=== PATIENT | female | born 1965 | race Caucasian/White ===

== ENCOUNTER → 2016-07-21 23:40 | Emergency (ER) | payer MEDICARE | END | disposition left against medical advice (07) | LOC: C.ER 23:40 | DX: F19.10 Other psychoactive substance abuse, uncomplicated (principal); Z02.9 Encounter for administrative examinations, unspecified ==

== ENCOUNTER 2016-08-20 16:43 | Inpatient (IN) | payer MEDICARE ==
[2016-08-20] MEDS ORDERED: Sodium Chloride 0.9% 1,000 ML IV ONE (17:04)
[2016-08-20 17:23] LABS: BASO # 0.1 K/uL (0.0-0.2); EOS % 0.2 % (0.0-4.0); HEMATOCRIT 37.4 % (34.0-47.0); LYMPH # 1.2 K/uL (1.0-4.3); LYMPH % 21.1 % (20.0-40.0); MEAN CELL VOLUME 95.5 fL (81.0-99.0); MEAN CORPUSCULAR HEMOGLOBIN 31.9 pg (27.0-31.0); MEAN CORPUSCULAR HGB CONC 33.4 g/dL (33.0-37.0); MEAN PLATELET VOLUME 8.1 fL (7.2-11.7); MONO # 0.5 K/uL (0.0-0.8); MONO % 8.7 % (0.0-10.0); NRBC % 0.1 % (0.0-2.0); RED CELL DISTRIBUTION WIDTH 14.7 % (11.5-14.5); WHITE BLOOD COUNT 5.7 K/uL (4.8-10.8)
[2016-08-20 17:29] LABS: CHLORIDE 91 mmol/L (98-107); POTASSIUM 2.6 mmol/L (3.6-5.2); SODIUM 134 mmol/L (132-148)
[2016-08-20 17:31] LABS: BILIRUBIN,TOTAL 1.3 mg/dL (0.2-1.3); GFR AFRICAN-AMERICAN > 60
[2016-08-20] MEDS ORDERED: Sodium Chloride 0.9% 1,000 ML ONE (17:31)
[2016-08-20 17:32] LABS: ALB/GLOB RATIO 1.3 (1.0-2.1); ALKALINE PHOSPHATASE 76 U/L (38-126); ALT/SGPT 91 U/L (9-52); AST/SGOT 204 U/L (14-36); BLOOD UREA NITROGEN 7 mg/dL (7-17); CALCIUM 8.8 mg/dl (8.6-10.4); CARBON DIOXIDE 24 mmol/L (22-30); GLUCOSE,RANDOM 112 mg/dL (65-105); TOTAL PROTEIN 7.5 g/dL (6.3-8.3)
--- NOTE | 2016-08-20 18:20 | C.PDOC ---
History Of Present Illness 50-year-old female, PMHx includes EtOH Abuse, presents to the emergency department with complaints of seizure. Patient states she tried to quit drinking , and has not had a drink in 1.5 days. Today, patient was having increased tremors, and had a witnessed seizure by bystander. 911 called and patient was found to be mildly lethargic upon arrival of EMS, questionable post-ictal? Currently patient is awake and alert and has no complaints at this time. Time Seen by Provider: 08/20/16 16:53 Chief Complaint (Nursing): Seizure History Per: Patient, EMS History/Exam Limitations: no limitations Associated Symptoms: Bit Tongue Past Medical History Reviewed: Historical Data, Nursing Documentation, Vital Signs Vital Signs: Last Vital Signs Temp 98.8 F 08/20/16 16:52 Pulse 120 H 08/20/16 16:52 Resp 14 08/20/16 16:52 BP 119/62 08/20/16 16:52 Pulse Ox 96 08/20/16 18:32 - Medical History PMH: Fibromyalgia Family History: States: Unknown Family Hx - Social History Hx Tobacco Use: No Hx Alcohol Use: Yes Hx Substance Use: No - Immunization History Hx Tetanus Toxoid Vaccination: No Hx Influenza Vaccination: No Hx Pneumococcal Vaccination: Yes Review Of Systems Except As Marked, All Systems Reviewed And Found Negative. Constitutional: Negative for: Fever, Chills Cardiovascular: Negative for: Chest Pain Respiratory: Negative for: Shortness of Breath Gastrointestinal: Negative for: Vomiting Genitourinary: Positive for: Incontinence. Negative for: Vaginal Discharge, Vaginal Bleeding Musculoskeletal: Negative for: Back Pain Skin: Negative for: Rash Neurological: Positive for: Seizures. Negative for: Weakness, Numbness, Headache, Dizziness Physical Exam - Physical Exam Appears: Non-toxic, No Acute Distress Skin: Warm, Dry, No Rash Head: Atraumatic, Normacephalic, No Swelling, No Abrasion, No Laceration Eye(s): bilateral: Normal Inspection, PERRL, EOMI Nose: Normal Oral Mucosa: Moist Tongue: Other (0.5cm left-sided superficial laceration with no active bleed) Lips: Normal Appearing Neck: Normal ROM, No Midline Cervical Tenderness, No Paracervical Tenderness Cardiovascular: Rhythm Regular, No Friction Rub, No Murmur Respiratory: Normal Breath Sounds, No Accessory Muscle Use, No Rales, No Rhonchi , No Wheezing Gastrointestinal/Abdominal: Soft, No Tenderness Back: Normal Inspection, No CVA Tenderness, No Vertebral Tenderness, No Paraspinal Tenderness Extremity: Normal ROM, No Calf Tenderness, No Swelling Neurological/Psych: Oriented x3, Normal Speech, Normal Cognition, Normal Motor, Normal Sensation Gait: Steady ED Course And Treatment - Laboratory Results Result Diagrams: 08/20/16 17:15 08/20/16 17:15 O2 Sat by Pulse Oximetry: 96 (on RA) Pulse Ox Interpretation: Normal Medical Decision Making Medical Decision Making: Plan: * CMP, UDS * CBC * Ativan, K-Chloride, IVF * Urinalysis/HCG * Reassess and Disposition Ativan IV ordered. The patient reports mild improvement of tremors and heart has decreased to 90's. Potassium was found to be low. IV potassium ordered. The case was discussed with Dr. Lemus who agrees to admit the patient to telemetry. Psych consult for alcohol dependence was ordered. Disposition - Disposition Disposition: HOSPITALIZED Disposition Time: 18:00 Condition: FAIR - POA Present On Arrival: None - Clinical Impression Clinical Impression: Hypokalemia, Alcohol withdrawal - Scribe Statement The provider has reviewed the documentation as recorded by the Sherry Shell
--- NOTE | 2016-08-20 18:21 | C.PDOC ---
Time Seen by Provider: 08/20/16 16:53 Chief Complaint (Nursing): Seizure Past Medical History Vital Signs: Last Vital Signs Temp 98.8 F 08/20/16 16:52 Pulse 120 H 08/20/16 16:52 Resp 14 08/20/16 16:52 BP 119/62 08/20/16 16:52 Pulse Ox 96 08/20/16 16:52 - Medical History PMH: Fibromyalgia Family History: States: Unknown Family Hx - Social History Hx Tobacco Use: No Hx Alcohol Use: Yes Hx Substance Use: No - Immunization History Hx Tetanus Toxoid Vaccination: No Hx Influenza Vaccination: No Hx Pneumococcal Vaccination: Yes ED Course And Treatment - Laboratory Results Result Diagrams: 08/20/16 17:15 08/20/16 17:15 O2 Sat by Pulse Oximetry: 96
[2016-08-20 19:14] LABS: RBC URINE 1 /hpf (0-3); URINE BACTERIA RARE (<OCC); URINE BILIRUBIN NEGATIVE (NEGATIVE); URINE BLOOD NEGATIVE (NEGATIVE); URINE COLOR Yellow (YELLOW); URINE GLUCOSE (UA) NORMAL (Normal); URINE KETONE NEGATIVE (NEGATIVE); URINE LEUKOCYTE ESTERASE NEG Leu/uL (Negative); URINE PROTEIN NEGATIVE (NEGATIVE); URINE UROBILINOGEN NORMAL mg/dL (0.2-1.0); WBC URINE 1 /hpf (0-5)
[2016-08-20] MEDS ORDERED: Magnesium Sulfate 1 gm in D5W 1 GM/100 ML BAG IVPB ONE ×2 (19:59→20:24)
[2016-08-21] MEDS: Potassium Ch 20mEq in D5-1/2NS 1,000 ML IV SCH ×2 (06:14→21:55)
[2016-08-21 06:17] LABS: BASO # 0.1 K/uL (0.0-0.2); BASO % 1.4 % (0.0-2.0); EOS % 1.1 % (0.0-4.0); HEMATOCRIT 33.4 % (34.0-47.0); LYMPH # 1.6 K/uL (1.0-4.3); LYMPH % 36.6 % (20.0-40.0); MEAN CELL VOLUME 96.6 fL (81.0-99.0); MEAN CORPUSCULAR HEMOGLOBIN 32.5 pg (27.0-31.0); MEAN CORPUSCULAR HGB CONC 33.7 g/dL (33.0-37.0); MEAN PLATELET VOLUME 8.4 fL (7.2-11.7); MONO # 0.4 K/uL (0.0-0.8); MONO % 10.4 % (0.0-10.0); RED CELL DISTRIBUTION WIDTH 14.2 % (11.5-14.5); WHITE BLOOD COUNT 4.3 K/uL (4.8-10.8)
[2016-08-21 07:55] LABS: CHLORIDE 97 mmol/L (98-107); SODIUM 136 mmol/L (132-148)
[2016-08-21 07:57] LABS: AST/SGOT 116 U/L (14-36); BILIRUBIN,TOTAL 1.2 mg/dL (0.2-1.3); CARBON DIOXIDE 30 mmol/L (22-30); GFR AFRICAN-AMERICAN > 60
[2016-08-21 07:58] LABS: ALB/GLOB RATIO 1.1 (1.0-2.1); ALKALINE PHOSPHATASE 56 U/L (38-126); ALT/SGPT 73 U/L (9-52); BLOOD UREA NITROGEN 5 mg/dL (7-17); CALCIUM 8.4 mg/dl (8.6-10.4); GLUCOSE,RANDOM 98 mg/dL (65-105); TOTAL PROTEIN 6.4 g/dL (6.3-8.3)
[2016-08-21] MEDS ORDERED: Potassium Chloride 20 mEq ER Tab PO ONE (09:05)
--- NOTE | 2016-08-21 10:47 | PCM.PSYCH ---
Initial Psychiatric Evaluation - Initial Psychiatric Evaluation Type of Admission: Voluntary Legal Status: Capacity Chief Complaint (in patient's own words): I came in to get help History of Present Illness and Precipitating Events: 50 y/o female who is currently unemployed, on disability, with a psychiatric history of anxiety, panic disorder and insomnia and a history of alcohol abuse was admitted to the ED for a seizure episode. The patient was consulted because of history of anxiety disorder. Pt says that she was walking to her friend's house on an overpass and developed a panic attack. She then decided to walk to her sisters house who lived near by. As the patient was walking she felt dizzy and suddenly lost consciousness. Patient reports of extra auditory high energy. She also says that she has been walking roughly 100 blocks daily for the past 3 years. Pt states that she either walks to [place] or to her friends house. Pt says that she did not eat for 2 days prior to the episode. She states that overall she has a poor appetite due to an esophageal hernia and that she recently lost 70 lbs in 3 months. Pt also states that she has been experiencing panic attacks for roughly 1 year and that tunnels or overpass trigger them. She denies drug or tobacco use and stated that she only consumes 1 glass of wine per week. She also reports poor sleep and poor appetite. She says that she saw her psychiatrist 2 months ago but is planning on seeing someone else since she does not feel like she is being helped. Pt denies visual or auditory hallucinations and homicidal or suicidal ideation. Pt denies persecutory delusions Pt denies any legal issues. Today the patient had 5 episodes of nonbloody diarrhea. She also feels dizzy after getting up from her bed. Pt also complains if night sweats and trouble falling asleep due to excessive worrying about her current condition and wanting to see her daughter. Current Medications: Active Medications Generic Name Dose Route Start Last Admin Trade Name Genevieve PRN Reason Stop Dose Admin Folic Acid 1 mg 08/21/16 10:00 08/21/16 09:06 Folic Acid PO 1 mg DAILY ERICA Administration Potassium Chloride/Dextrose/Sod Cl 1,000 mls @ 100 mls/hr 08/20/16 20:00 06:14 Potassium Chl 20 Meq In D5-1/2ns IV 100 mls/hr .Q10H ERICA Administration Potassium Chloride 20 meq in 100 mls @ 50 mls/hr 08/21/16 10:00 08/21/16 09: 00 Potassium Chloride 20 Meq/100 Ml IVPB 08/21/16 13:59 50 mls/hr Q2 ERICA Administration Lorazepam 2 mg 08/20/16 19:59 08/21/16 09:45 Ativan IVP 2 mg Q6H PRN Administration Anxiety Lorazepam 2 mg 08/21/16 10:00 Ativan IVP 08/26/16 09:59 Q4 ERICA Taper Thiamine HCl 100 mg 08/21/16 10:00 08/21/16 09:06 Vitamin B1 Tab PO 100 mg DAILY ERICA Administration Past Psychiatric History - Past Psychiatric History Previous Treatment History: None History of Family Illness: Father wad depression Pertinent Medical Hx (Current Medical&Sleep Prob, Allergies): Allergies Allergy/AdvReac Type Severity Reaction Status Date / Time No Known Allergies Allergy Verified 08/20/16 16:51 No Known Home Med 02/14/16 Review of Systems - Review of Systems All systems: reviewed and no additional remarkable complaints except - Psychiatric Psychiatric: Anxiety, Behavioral Changes, Irritability, Mood Swings, Panic Attacks Mental Status Examination - Personal Presentation Personal Presentation: Looks stated age - Affect Affect: Constricted - Motor Activity Motor Activity: Psychomotor Agitation - Reliability in Providing Information Reliability in Providing Information: Good - Speech Speech: Organized - Mood Mood: Anxious - Formal Thought Process Formal Thought Process: Flight of ideas - Obsessions/Compulsions Obsessions: No Compulsions: No - Cognitive Functions Orientation: Person, Place, Situation, Time Sensorium: Alert Attention/Concentration: Attentive Abstract Thinking: [place] Estimate of Intelligence: Below average Judgement: Imparied, as evidence by: Poor judgement, Intact, as evidence by: Insight regarding need for hospitalization - Risk Risk: Diminished functioning - Strength & Assets Inventory Strength & Assets Inventory: Cooperative DSM 5 DX - DSM 5 DSM 5 Diagnosis: Bipolar 1 disorder most recent episode manic moderate - Recommended/Plan of Treatment Treatment Recommendations and Plan of Treatment: Bipolar 1 disorder most recent episode manic moderate CBT Psychoeducation Supportive therapy, group therapy, individual therapy Depakote 250 mg by mouth twice a day Neurontin 100 mg by mouth 3 times a day Trazodone 50 mg by mouth daily at bedtime - Smoking Cessation Smoking Cessation Initiated: No
--- NOTE | 2016-08-21 11:44 | CT ---
PROCEDURE: CT HEAD WITHOUT CONTRAST. HISTORY: s/p fall hit to left head with dizziness COMPARISON: None available. TECHNIQUE: Axial computed tomography images were obtained through the head/brain without intravenous contrast. Radiation dose: Total exam DLP = 1031.53 mGy-cm. This CT exam was performed using one or more of the following dose reduction techniques: Automated exposure control, adjustment of the mA and/or kV according to patient size, and/or use of iterative reconstruction technique. FINDINGS: HEMORRHAGE: No intracranial hemorrhage. BRAIN: No mass effect or edema. No atrophy or chronic microvascular ischemic changes. VENTRICLES: Unremarkable. No hydrocephalus. CALVARIUM: Unremarkable. PARANASAL SINUSES: Unremarkable as visualized. No significant inflammatory changes. MASTOID AIR CELLS: Unremarkable as visualized. No inflammatory changes. OTHER FINDINGS: Mild left frontal scalp soft tissue swelling seen. IMPRESSION: No evidence of acute intracranial hemorrhage or acute pathology in the brain.
--- NOTE | 2016-08-21 12:55 | CP.PCM.PN ---
Subjective - Date & Time of Evaluation Date of Evaluation: 08/21/16 Time of Evaluation: 09:31 - Subjective Subjective: Medicine Progress Note- Dr. Lemus's Service: 50 year old female with PMHx of alcohol abuse admitted overnight after witnessed seizure yesterday. She states she was walking on the street when she "went down". Patient does not remember episode. She remembers when the firemen where helping her. She admits to drinking last 3 days ago. She denies prior seizures. Patient seen and examined at bedside this AM. Patient reports feeling a little dizzy this morning when she got up to bathroom. She is complaining of bruising and pain over her left forehead where she hit herself during fall. Tremors have improved. She is alert and oriented. Admits to diarrhea and nausea, but no vomiting. No chest pain, SOB, abdominal pain. Objective - Vital Signs/Intake and Output Vital Signs (last 24 hours): Temp Pulse Resp BP Pulse Ox 98.8 F 73 18 122/78 96 08/21/16 07:45 08/21/16 07:45 08/21/16 07:45 08/21/16 07:45 08/21/16 07:45 - Medications Medications: Current Medications Folic Acid (Folic Acid) 1 mg PO DAILY [facility] Last Admin: 08/21/16 09:06 Dose: 1 mg Potassium Chloride/Dextrose/Sod Cl (Potassium Chl 20 Meq In D5-1/2ns) 1,000 mls @ 100 mls/hr IV .Q10H ERICA Last Admin: 08/21/16 06:14 Dose: 100 mls/hr Potassium Chloride (Potassium Chloride 20 Meq/100 Ml) 20 meq in 100 mls @ 50 mls/hr IVPB Q2 ERICA Stop: 08/21/16 13:59 Last Admin: 08/21/16 09:00 Dose: 50 mls/hr Lorazepam (Ativan) 2 mg IVP Q6H PRN PRN Reason: Anxiety Last Admin: 08/21/16 09:45 Dose: 2 mg Lorazepam (Ativan) 2 mg IVP Q4 ERICA PRN Reason: Taper Stop: 08/26/16 09:59 Thiamine HCl (Vitamin B1 Tab) 100 mg PO DAILY ERICA Last Admin: 08/21/16 09:06 Dose: 100 mg - Labs Labs: 08/21/16 06:09 08/21/16 06:09 - Constitutional Appears: No Acute Distress - Head Exam Head Exam: absent: ATRAUMATIC (bruises over left and middle forehead. ), NORMAL INSPECTION - Eye Exam Eye Exam: EOMI, Normal appearance - ENT Exam ENT Exam: Mucous Membranes Moist - Neck Exam Neck Exam: Full ROM, Normal Inspection - Respiratory Exam Respiratory Exam: Clear to Ausculation Bilateral, NORMAL BREATHING PATTERN - Cardiovascular Exam Cardiovascular Exam: REGULAR RHYTHM, +S1, +S2 - GI/Abdominal Exam GI & Abdominal Exam: Soft. absent: Distended, Tenderness - Extremities Exam Extremities Exam: Full ROM, Normal Inspection - Back Exam Back Exam: NORMAL INSPECTION - Neurological Exam Neurological Exam: Alert, Awake, Oriented x3 - Psychiatric Exam Psychiatric exam: Normal Affect, Normal Mood - Skin Skin Exam: Dry, Normal Color, Warm Assessment and Plan (1) Seizure disorder Assessment & Plan: First time seizure. Head CT this AM negative for IC bleed. Neuro consult placed- Dr. Skinner f/u EEG UDS negative Physical therapy Status: Acute (2) Fall Assessment & Plan: Head CT this AM negative for IC bleed. UDS negative Physical therapy Status: Acute (3) Alcohol withdrawal Assessment & Plan: LFTs elevated. Likely secondary to alcohol abuse. Psych consult placed- Dr. Sweeney- help appreciated. Ativan Taper Ativan PRN Banana bag X1 Thiamine 100 mg PO daily MV PO daily Folic Acid 1 mg PO daily Seizure, fall and aspiration precautions. Status: Acute (4) Hypokalemia Assessment & Plan: K+ 3.0 today. IVPB 20 mEQ X2 bags ordered for today. f/u CMP in the AM Status: Acute (5) Prophylactic measure Assessment & Plan: Pepcid 2mg PO BID SCDs Status: Acute
--- NOTE | 2016-08-21 16:49 | CP.PCM.CON ---
History of Present Illness - History of Present Illness History of Present Illness: Mrs. Ellison is a 50-year-old woman with a past medical history of depression, abdominal hernia, a 70 lb weight loss over the last several months, nausea, vomiting who states that she sometimes drinks heavily but her last drink was 2- 3 days ago. She was walking to her sisters house when she lost consciousness and was witnessed having seizure-like movements. The patient states that she takes Xanax regularly, and does not know what other medications she is on. She admits to having headache where she hit her head on the left latter-day region when she fell. She does not currently have nausea/vomiting, photophobia, blurry vision, or visual changes, weakness, sensory changes, shortness of breath, chest pain or other associated symptoms. Review of Systems - Review of Systems All systems: reviewed and no additional remarkable complaints except Past Patient History - Infectious Disease Hx of Infectious Diseases: None - Past Medical History & Family History Past Medical History?: Yes - Past Social History Smoking Status: Never Smoked - CARDIAC Hx Cardiac Disorders: No - PULMONARY Hx Respiratory Disorders: No - NEUROLOGICAL Hx Neurological Disorder: No - HEENT Hx HEENT Problems: No - RENAL Hx Chronic Kidney Disease: No - ENDOCRINE/METABOLIC Hx Endocrine Disorders: No - HEMATOLOGICAL/ONCOLOGICAL Hx Blood Disorders: No - INTEGUMENTARY Hx Dermatological Problems: No - MUSCULOSKELETAL/RHEUMATOLOGICAL Hx Musculoskeletal Disorders: No Hx Falls: No - GASTROINTESTINAL Hx Gastrointestinal Disorders: No - GENITOURINARY/GYNECOLOGICAL Hx Genitourinary Disorders: No - PSYCHIATRIC Hx Psychophysiologic Disorder: Yes Hx Anxiety: Yes Hx Depression: Yes Hx Substance Use: No - SURGICAL HISTORY Hx Surgeries: Yes Hx Section: Yes Hx Orthopedic Surgery: Yes (Right Knee) Other/Comment: Rt knee surgery 2 yrs. ago - ANESTHESIA Hx Anesthesia: Yes Hx Anesthesia Reactions: No Has any member of the family had a problem w/ anesthesia?: No Meds Allergies/Adverse Reactions: Allergies Allergy/AdvReac Type Severity Reaction Status Date / Time No Known Allergies Allergy Verified 08/20/16 16:51 - Medications Medications: Current Medications Divalproex Sodium (Depakote Dr) 250 mg PO BID [facility] Famotidine (Pepcid) 20 mg PO BID [facility] Folic Acid (Folic Acid) 1 mg PO DAILY [facility] Last Admin: 08/21/16 09:06 Dose: 1 mg Gabapentin (Neurontin) 100 mg PO TID [facility] Hydroxyzine HCl (Atarax) 25 mg PO Q6 PRN PRN Reason: Anxiety Potassium Chloride/Dextrose/Sod Cl (Potassium Chl 20 Meq In D5-1/2ns) 1,000 mls @ 100 mls/hr IV .Q10H [facility] Last Admin: 08/21/16 06:14 Dose: 100 mls/hr Lorazepam (Ativan) 1 mg IVP Q6H PRN PRN Reason: Anxiety Multivitamins (Hexavitamin) 1 tab PO DAILY [facility] Thiamine HCl (Vitamin B1 Tab) 100 mg PO DAILY [facility] Last Admin: 08/21/16 09:06 Dose: 100 mg Trazodone HCl (Desyrel) 50 mg PO HS [facility] Physical Exam - Constitutional Appears: Well - Head Exam Head Exam: NORMAL INSPECTION, NORMOCEPHALIC Additional comments: soft tissue swelling and hematoma over the left lateral and latter-day region of the head. - Eye Exam Eye Exam: Conjunctival injection - ENT Exam ENT Exam: Mucous Membranes Moist, Normal Exam - Neck Exam Neck exam: Positive for: Normal Inspection - Respiratory Exam Respiratory Exam: Clear to Auscultation Bilateral, NORMAL BREATHING PATTERN - Cardiovascular Exam Cardiovascular Exam: REGULAR RHYTHM, +S1, +S2 - GI/Abdominal Exam GI & Abdominal Exam: Normal Bowel Sounds, Soft. absent: Tenderness - Back Exam Back exam: NORMAL INSPECTION - Neurological Exam Neurological exam: Alert, CN II-XII Intact, Normal Gait, Oriented x3, Reflexes Normal - Expanded Neurological Exam Expanded Patient oriented to: person, place, time Ataxia: No Upper motor neuron: Babinski Sign: Normal, Holden Neglect: Normal Sensory exam: Lower Extremity 2 Point Discrimination: Normal, Lower Extremity Light Touch: Normal, Lower Extremity Pin Prick: Normal, Lower Extremity Temperature: Normal, Upper Extremity 2 Point Discrimination: Normal, Upper Extremity Light Touch: Normal, Upper Extremity Pin Prick: Normal, Upper Extremity Temperature: Normal Neuro motor strength exam: Left Upper Extremity: 5, Right Upper Extremity: 5, Left Lower Extremity: 5, Right Lower Extremity: 5 DTR: Achilles Tendon Left: 2+, Achilles Tendon Right: 2+, Bicep Left: 2+, Bicep Right: 2+, Brachioradialis Left: 2+, Brachioradialis Right: 2+, Patellar Left: 2 +, Patellar Right: 2+, Tricep Left: 2+, Tricep Right: 2+ - Psychiatric Exam Psychiatric exam: Depressed Results - Vital Signs Recent Vital Signs: Last Vital Signs Temp 99.5 F 08/21/16 15:54 Pulse 81 08/21/16 15:54 Resp 20 08/21/16 15:54 BP 126/82 08/21/16 15:54 Pulse Ox 99 08/21/16 15:54 - Labs Result Diagrams: 08/21/16 06:09 08/21/16 06:09 Labs: Laboratory Results - last 24 hr 08/20/16 08/20/16 08/21/16 18:58 18:58 06:09 WBC 4.3 L RBC 3.46 L Hgb 11.3 Hct 33.4 L MCV 96.6 MCH 32.5 H MCHC 33.7 RDW 14.2 Plt Count 149 MPV 8.4 Neut % (Auto) 50.5 Lymph % (Auto) 36.6 Humphreys % (Auto) 10.4 H Eos % (Auto) 1.1 Baso % (Auto) 1.4 Neut # 2.2 Lymph # 1.6 Humphreys # 0.4 Eos # 0.0 Baso # 0.1 Sodium Potassium Chloride Carbon Dioxide Anion Gap BUN Creatinine Est GFR ( Amer) Est GFR (Non-Af Amer) Random Glucose Calcium Total Bilirubin AST ALT Alkaline Phosphatase Total Protein Albumin Globulin Albumin/Globulin Ratio Urine Color Yellow Urine Clarity Clear Urine pH 8.0 Ur Specific Cecil 1.005 Urine Protein Negative Urine Glucose (UA) Normal Urine Ketones Negative Urine Blood Negative Urine Nitrate Negative Urine Bilirubin Negative Urine Urobilinogen Normal Ur Leukocyte Esterase Neg Urine WBC (Auto) 1 Urine RBC (Auto) 1 Ur Squamous Epith Cells 6 H Urine Bacteria Rare Urine HCG, Qual Negative Urine Opiates Screen Negative Urine Methadone Screen Negative Ur Barbiturates Screen Negative Ur Phencyclidine Scrn Negative Ur Amphetamines Screen Negative U Benzodiazepines Scrn Negative U Oth Cocaine Metabols Negative U Cannabinoids Screen Negative 08/21/16 06:09 WBC RBC Hgb Hct MCV MCH MCHC RDW Plt Count MPV Neut % (Auto) Lymph % (Auto) Humphreys % (Auto) Eos % (Auto) Baso % (Auto) Neut # Lymph # Humphreys # Eos # Baso # Sodium 136 Potassium 3.0 L Chloride 97 L Carbon Dioxide 30 Anion Gap 13 BUN 5 L Creatinine 0.4 L Est GFR ( Amer) > 60 Est GFR (Non-Af Amer) > 60 Random Glucose 98 Calcium 8.4 L Total Bilirubin 1.2 AST 116 H D ALT 73 H Alkaline Phosphatase 56 Total Protein 6.4 Albumin 3.4 L Globulin 3.0 Albumin/Globulin Ratio 1.1 Urine Color Urine Clarity Urine pH Ur Specific Cecil Urine Protein Urine Glucose (UA) Urine Ketones Urine Blood Urine Nitrate Urine Bilirubin Urine Urobilinogen Ur Leukocyte Esterase Urine WBC (Auto) Urine RBC (Auto) Ur Squamous Epith Cells Urine Bacteria Urine HCG, Qual Urine Opiates Screen Urine Methadone Screen Ur Barbiturates Screen Ur Phencyclidine Scrn Ur Amphetamines Screen U Benzodiazepines Scrn U Oth Cocaine Metabols U Cannabinoids Screen - Imaging and Cardiology CT scan - head Status: Image reviewed by me, Report reviewed by me (No acute findings on CT head.) Assessment & Plan (1) Seizure disorder Assessment and Plan: Likely secondary to dehydration, hypokalemia, alcohol or benzodiazepine withdrawal. EEG results are pending. MRI of the brain with and without contrast is recommended. Continue Depakote at current dose, may increase gabapentin to 300 mg TID. PT/OT, DVT Px. Thank you very much for this consultation. Status: Acute
[2016-08-21] MEDS: Divalproex 250 mg DR Tab PO SCH (18:16)
[2016-08-21] MEDS: Multiple Vitamins Tab PO SCH (18:17)
[2016-08-22 07:23] LABS: BASO # 0.1 K/uL (0.0-0.2); EOS # 0.1 K/uL (0.0-0.7); EOS % 1.8 % (0.0-4.0); HEMATOCRIT 36.7 % (34.0-47.0); LYMPH # 1.9 K/uL (1.0-4.3); LYMPH % 49.2 % (20.0-40.0); MEAN CELL VOLUME 98.1 fL (81.0-99.0); MEAN CORPUSCULAR HEMOGLOBIN 32.2 pg (27.0-31.0); MEAN CORPUSCULAR HGB CONC 32.8 g/dL (33.0-37.0); MEAN PLATELET VOLUME 8.7 fL (7.2-11.7); MONO # 0.4 K/uL (0.0-0.8); MONO % 9.8 % (0.0-10.0); RED CELL DISTRIBUTION WIDTH 14.7 % (11.5-14.5); WHITE BLOOD COUNT 3.9 K/uL (4.8-10.8)
[2016-08-22 07:41] LABS: CHLORIDE 99 mmol/L (98-107); POTASSIUM 3.7 mmol/L (3.6-5.2); SODIUM 139 mmol/L (132-148)
[2016-08-22 07:43] LABS: BILIRUBIN,TOTAL 0.9 mg/dL (0.2-1.3); GFR AFRICAN-AMERICAN > 60
[2016-08-22 07:44] LABS: ALB/GLOB RATIO 1.1 (1.0-2.1); ALKALINE PHOSPHATASE 53 U/L (38-126); ALT/SGPT 66 U/L (9-52); AST/SGOT 99 U/L (14-36); BLOOD UREA NITROGEN 3 mg/dL (7-17); CALCIUM 8.7 mg/dl (8.6-10.4); CARBON DIOXIDE 30 mmol/L (22-30); GLUCOSE,RANDOM 85 mg/dL (65-105); MAGNESIUM 1.9 mg/dL (1.6-2.3); TOTAL PROTEIN 6.8 g/dL (6.3-8.3)
[2016-08-22] MEDS: Potassium Ch 20mEq in D5-1/2NS 1,000 ML IV SCH ×2 (09:03→21:24)
[2016-08-22] MEDS: Divalproex 250 mg DR Tab PO SCH ×2 (10:37→19:03)
[2016-08-22] MEDS: Multiple Vitamins Tab PO SCH (10:42)
--- NOTE | 2016-08-22 12:44 | PCM.PYCHPN ---
Psychiatric Progress Note - Psychiatric Progress Note Patient seen today, length of contact: 15 min Patient Chief Complaint: I came in to get help Problems Identified/Issues Discussed: Patient seen and evaluated, chart reviewed and discussed with the nurse. Patient reports improvement in her irritability and racing of thoughts. She feels much better than yesterday. She remained calm and cooperative and taking medication and denies any side effects. Supportive therapy and psychoeducation were given Medication Change: Yes (increase Depakote) Medical Record Reviewed: Yes Mental Status Examination - Cognitive Function Orientation: Person, Place, Situation, Time Memory: Intact Attention: WNL Concentration: WNL Association: WNL Fund of Knowledge: WNL - Mood Mood: Anxious - Affect Affect: Constricted - Formal Thought Process Formal Thought Process: Flight of ideas - Suicidal Ideation Suicidal Ideation: No - Homicidal Ideation Homicidal Ideation: No Goal/Treatment Plan - Goal/Treatment Plan Need for Continued Stay: Discharge may exacerbated symptoms Progress Toward Problem(s) and Goals/Treatment Plan: Bipolar 1 disorder most recent episode manic moderate CBT Psychoeducation Supportive therapy, group therapy, individual therapy Depakote 250 mg by mouth BID Neurontin 100 mg by mouth 3 times a day Trazodone 50 mg by mouth daily at bedtime - Smoking Cessation Smoking Cessation Initiated: No
[2016-08-22] MEDS ORDERED: Gadodiamide 287 MG/ML VIAL (15ML) IV ONE (12:47)
--- NOTE | 2016-08-22 13:58 | CP.PCM.PN ---
Subjective - Date & Time of Evaluation Date of Evaluation: 08/22/16 Time of Evaluation: 08:00 - Subjective Subjective: Medicine Progress Note- Dr. Lemus's service: Patient seen and examined at bedside this AM. Patient reports feeling less shaky this morning. She is ambulating without issues. Denies chest pain, fevers , chills, nausea, vomiting. Dizziness has improved. No other complaints. Objective - Vital Signs/Intake and Output Vital Signs (last 24 hours): Temp Pulse Resp BP Pulse Ox 98.3 F 65 20 113/81 98 08/22/16 08:36 08/22/16 08:36 08/22/16 08:36 08/22/16 08:36 08/22/16 08:36 - Medications Medications: Current Medications Aspirin (Ecotrin) 81 mg PO DAILY [facility] Divalproex Sodium (Depakote Dr) 250 mg PO BID [facility] Last Admin: 08/22/16 10:37 Dose: 250 mg Famotidine (Pepcid) 20 mg PO BID [facility] Last Admin: 08/22/16 10:38 Dose: 20 mg Folic Acid (Folic Acid) 1 mg PO DAILY [facility] Last Admin: 08/22/16 10:38 Dose: 1 mg Gabapentin (Neurontin) 100 mg PO TID [facility] Last Admin: 08/22/16 10:38 Dose: 100 mg Hydroxyzine HCl (Atarax) 25 mg PO Q6 PRN PRN Reason: Anxiety Potassium Chloride/Dextrose/Sod Cl (Potassium Chl 20 Meq In D5-1/2ns) 1,000 mls @ 100 mls/hr IV .Q10H [facility] Last Admin: 08/22/16 09:03 Dose: 100 mls/hr Lorazepam (Ativan) 1 mg IVP Q6H PRN PRN Reason: Anxiety Last Admin: 08/22/16 12:04 Dose: 1 mg Multivitamins (Hexavitamin) 1 tab PO DAILY [facility] Last Admin: 08/22/16 10:42 Dose: 1 tab Rosuvastatin Calcium (Crestor) 10 mg PO HS [facility] Thiamine HCl (Vitamin B1 Tab) 100 mg PO DAILY [facility] Last Admin: 08/22/16 10:38 Dose: 100 mg Trazodone HCl (Desyrel) 50 mg PO HS [facility] Last Admin: 08/21/16 21:54 Dose: 50 mg - Constitutional Appears: No Acute Distress - Head Exam Head Exam: NORMOCEPHALIC. absent: ATRAUMATIC (bruises on left forehead) - Eye Exam Eye Exam: EOMI, Normal appearance - ENT Exam ENT Exam: Mucous Membranes Moist - Neck Exam Neck Exam: Full ROM, Normal Inspection - Respiratory Exam Respiratory Exam: Clear to Ausculation Bilateral, NORMAL BREATHING PATTERN - Cardiovascular Exam Cardiovascular Exam: REGULAR RHYTHM - GI/Abdominal Exam GI & Abdominal Exam: Soft. absent: Distended, Tenderness - Extremities Exam Extremities Exam: Full ROM, Normal Inspection - Neurological Exam Neurological Exam: Alert, Awake, Oriented x3 - Psychiatric Exam Psychiatric exam: Normal Affect, Normal Mood - Skin Skin Exam: Dry, Normal Color, Warm Assessment and Plan - Assessment and Plan (Free Text) Assessment: (1) Seizure disorder Assessment & Plan: First time seizure. Head CT this AM negative for IC bleed. Neuro consult placed- Dr. Skinner EEG results are pending. As per neuro, continue Depakote 250 PO BID at current dose, may increase Gabapentin to 300 mg TID. UDS negative Physical therapy Status: Acute (2) Fall Assessment & Plan: Head CT this AM negative for IC bleed. UDS negative Physical therapy Status: Acute (3) Alcohol withdrawal Assessment & Plan: LFTs elevated. Likely secondary to alcohol abuse. Psych consult placed- Dr. Sweeney- help appreciated. Ativan Taper Ativan PRN Banana bag X1 Thiamine 100 mg PO daily MV PO daily Folic Acid 1 mg PO daily Seizure, fall and aspiration precautions. Status: Acute (4) Hypokalemia Assessment & Plan: K+ 3.7 today. f/u CMP in the AM Status: Acute (5) Prophylactic measure Assessment & Plan: Pepcid 2mg PO BID SCDs Status: Acute all management as per Dr. Lemus.
--- NOTE | 2016-08-22 14:13 | CP.PCM.PN ---
Subjective - Date & Time of Evaluation Date of Evaluation: 08/22/16 Time of Evaluation: 14:08 - Subjective Subjective: Mrs. Ellison was seen and examined today at bedside. She had no new complaints and there were no events overnight. I discussed the results of the MRI with her. Objective - Vital Signs/Intake and Output Vital Signs (last 24 hours): Temp Pulse Resp BP Pulse Ox 98.3 F 65 20 113/81 98 08/22/16 08:36 08/22/16 08:36 08/22/16 08:36 08/22/16 08:36 08/22/16 08:36 - Medications Medications: Current Medications Aspirin (Ecotrin) 81 mg PO DAILY [facility] Divalproex Sodium (Depakote Dr) 250 mg PO BID [facility] Last Admin: 08/22/16 10:37 Dose: 250 mg Famotidine (Pepcid) 20 mg PO BID [facility] Last Admin: 08/22/16 10:38 Dose: 20 mg Folic Acid (Folic Acid) 1 mg PO DAILY [facility] Last Admin: 08/22/16 10:38 Dose: 1 mg Gabapentin (Neurontin) 100 mg PO TID [facility] Last Admin: 08/22/16 10:38 Dose: 100 mg Hydroxyzine HCl (Atarax) 25 mg PO Q6 PRN PRN Reason: Anxiety Potassium Chloride/Dextrose/Sod Cl (Potassium Chl 20 Meq In D5-1/2ns) 1,000 mls @ 100 mls/hr IV .Q10H [facility] Last Admin: 08/22/16 09:03 Dose: 100 mls/hr Lorazepam (Ativan) 1 mg IVP Q6H PRN PRN Reason: Anxiety Last Admin: 08/22/16 12:04 Dose: 1 mg Multivitamins (Hexavitamin) 1 tab PO DAILY [facility] Last Admin: 08/22/16 10:42 Dose: 1 tab Rosuvastatin Calcium (Crestor) 10 mg PO HS [facility] Thiamine HCl (Vitamin B1 Tab) 100 mg PO DAILY [facility] Last Admin: 08/22/16 10:38 Dose: 100 mg Trazodone HCl (Desyrel) 50 mg PO HS [facility] Last Admin: 08/21/16 21:54 Dose: 50 mg - Constitutional Appears: Well - Head Exam Head Exam: ATRAUMATIC, NORMAL INSPECTION, NORMOCEPHALIC - Eye Exam Eye Exam: EOMI, Normal appearance, PERRL - ENT Exam ENT Exam: Mucous Membranes Moist, Normal Exam - Neck Exam Neck Exam: Full ROM, Normal Inspection. absent: Lymphadenopathy - Respiratory Exam Respiratory Exam: Clear to Ausculation Bilateral, NORMAL BREATHING PATTERN - Cardiovascular Exam Cardiovascular Exam: REGULAR RHYTHM, +S1, +S2. absent: Murmur - GI/Abdominal Exam GI & Abdominal Exam: Soft, Normal Bowel Sounds. absent: Tenderness - Neurological Exam Neurological Exam: Alert, Awake, CN II-XII Intact, Normal Gait, Oriented x3 Neuro motor strength exam: Left Upper Extremity: 5, Right Upper Extremity: 4, Left Lower Extremity: 5, Right Lower Extremity: 4 Additional comments: brisk reflexes on the right side with upgoing plantar response. - Psychiatric Exam Psychiatric exam: Normal Affect, Normal Mood - Skin Skin Exam: Dry, Intact, Normal Color, Warm Assessment and Plan (1) Ischemic stroke Assessment & Plan: MRI of the brain showed a left caudate and basal ganglia acute and subacute ischemic stroke. Will start aspirin 81 mg daily and Plavix 75 mg daily for 21 days per the [facility] protocol and after 21 days continue only aspirin 81 mg indefinitely. Will start Crestor and obtain vascular study with a CTA of the head/neck as well as carotid ultrasound. There is a strong family history of stroke and MN. The patient stated that she was previously told that she has a blocked coronary artery. Will obtain an echocardiogram with bubble study. Permissive hypertension. Do not treat SBP<200 for the next 24 hours. PT/OT and case management consult. Status: Acute
--- NOTE | 2016-08-22 14:37 | MRI ---
PROCEDURE: MRI BRAIN WITH AND WITHOUT CONTRAST HISTORY: seizure, history of weight loss COMPARISON: Comparison is made to the previous CT. TECHNIQUE: Multiplanar, multisequence MR images of the brain were obtained with and without intravenous contrast enhancement. 11 mL of IV contrast was injected. FINDINGS: HEMORRHAGE: None DWI: There are 2 adjacent foci of diffusion restriction seen at the left caudate head and left putamen demonstrate mild hyperintense T2 and FLAIR signal and isointense T1 signal. No evidence of surrounding edema or significant enhancement at these 2 foci. BRAIN PARENCHYMA: No evidence of mass effect or midline shift. Mild atrophy is noted. ENHANCEMENT: No abnormal intracranial enhancement. VENTRICLES: Unremarkable. No hydrocephalus. CRANIUM: Unremarkable. ORBITS: Grossly unremarkable. PARANASAL SINUSES/MASTOIDS: Clear VASCULAR SYSTEM: Skull base flow voids intact. OTHER FINDINGS: None . IMPRESSION: Two adjacent foci of diffusion restriction seen at the left caudate head and adjacent left putamen demonstrate no enhancement or surrounding vasogenic edema. Findings suspicious for acute infarcts. No evidence of enhancing mass lesion in the brain. No evidence of mass effect or midline shift.
[2016-08-22 15:28] LABS: CHOLESTEROL 150 mg/dL (0-199)
[2016-08-23 07:23] LABS: BASO # 0.1 K/uL (0.0-0.2); BASO % 1.1 % (0.0-2.0); EOS # 0.1 K/uL (0.0-0.7); HEMATOCRIT 33.7 % (34.0-47.0); LYMPH # 2.2 K/uL (1.0-4.3); LYMPH % 44.6 % (20.0-40.0); MEAN CELL VOLUME 99.2 fL (81.0-99.0); MEAN CORPUSCULAR HEMOGLOBIN 32.2 pg (27.0-31.0); MEAN CORPUSCULAR HGB CONC 32.5 g/dL (33.0-37.0); MEAN PLATELET VOLUME 8.9 fL (7.2-11.7); MONO # 0.5 K/uL (0.0-0.8); MONO % 10.9 % (0.0-10.0); RED CELL DISTRIBUTION WIDTH 14.4 % (11.5-14.5); WHITE BLOOD COUNT 4.9 K/uL (4.8-10.8)
[2016-08-23 07:27] LABS: CHLORIDE 103 mmol/L (98-107); SODIUM 139 mmol/L (132-148)
[2016-08-23 07:28] LABS: POTASSIUM 4.2 mmol/L (3.6-5.2)
[2016-08-23 07:30] LABS: ALB/GLOB RATIO 1.1 (1.0-2.1); ALKALINE PHOSPHATASE 44 U/L (38-126); AST/SGOT 80 U/L (14-36); BILIRUBIN,TOTAL 0.7 mg/dL (0.2-1.3); BLOOD UREA NITROGEN 8 mg/dL (7-17); CARBON DIOXIDE 26 mmol/L (22-30); GFR AFRICAN-AMERICAN > 60; GLUCOSE,RANDOM 89 mg/dL (65-105); TOTAL PROTEIN 6.3 g/dL (6.3-8.3)
[2016-08-23 07:31] LABS: ALT/SGPT 57 U/L (9-52); CALCIUM 8.3 mg/dl (8.6-10.4); MAGNESIUM 1.9 mg/dL (1.6-2.3)
[2016-08-23] MEDS: Potassium Ch 20mEq in D5-1/2NS 1,000 ML IV SCH ×2 (08:00→21:06)
[2016-08-23] MEDS: Divalproex 250 mg DR Tab PO SCH ×2 (09:36→17:13)
[2016-08-23] MEDS: Multiple Vitamins Tab PO SCH (09:38)
[2016-08-23] MEDS ORDERED: Iodixanol 320 MG/ML 100 ML BOTTLE IV ONE (13:48)
--- NOTE | 2016-08-23 16:34 | CP.PCM.PN ---
Subjective - Date & Time of Evaluation Date of Evaluation: 08/23/16 Time of Evaluation: 16:31 - Subjective Subjective: Mrs. Ellison was seen and examined today at bedside. Her sister was present and had some questions. According to the patient and her sister, last night the patient was hallucinating and having delusions. She is unstable when she walks and has had urinary incontinence. I explained that many of these symptoms are due to the stroke. I answered other questions to their satisfaction. Objective - Vital Signs/Intake and Output Vital Signs (last 24 hours): Temp Pulse Resp BP Pulse Ox 98.6 F 72 20 112/69 96 08/23/16 08:21 08/23/16 08:21 08/23/16 08:21 08/23/16 08:21 08/23/16 08:21 Intake and Output: 08/23/16 08/23/16 06:59 18:59 Intake Total 1600 Balance 1600 - Medications Medications: Current Medications Aspirin (Ecotrin) 81 mg PO DAILY [facility] Last Admin: 08/23/16 09:34 Dose: 81 mg Clopidogrel Bisulfate (Plavix) 75 mg PO DAILY [facility] Last Admin: 08/23/16 09:34 Dose: 75 mg Divalproex Sodium (Depakote Dr) 250 mg PO BID [facility] Last Admin: 08/23/16 09:36 Dose: 250 mg Famotidine (Pepcid) 20 mg PO BID [facility] Last Admin: 08/23/16 09:33 Dose: 20 mg Folic Acid (Folic Acid) 1 mg PO DAILY [facility] Last Admin: 08/23/16 09:33 Dose: 1 mg Gabapentin (Neurontin) 100 mg PO TID [facility] Last Admin: 08/23/16 14:00 Dose: Not Given Hydroxyzine HCl (Atarax) 25 mg PO Q6 PRN PRN Reason: Anxiety Potassium Chloride/Dextrose/Sod Cl (Potassium Chl 20 Meq In D5-1/2ns) 1,000 mls @ 100 mls/hr IV .Q10H [facility] Last Admin: 08/23/16 08:00 Dose: 100 mls/hr Lorazepam (Ativan) 1 mg IVP Q6H PRN PRN Reason: Anxiety Last Admin: 08/22/16 12:04 Dose: 1 mg Multivitamins (Hexavitamin) 1 tab PO DAILY [facility] Last Admin: 08/23/16 09:38 Dose: 1 tab Rosuvastatin Calcium (Crestor) 10 mg PO HS [facility] Last Admin: 08/22/16 21:06 Dose: 10 mg Thiamine HCl (Vitamin B1 Tab) 100 mg PO DAILY [facility] Last Admin: 08/23/16 09:33 Dose: 100 mg Trazodone HCl (Desyrel) 50 mg PO HS [facility] Last Admin: 08/22/16 21:07 Dose: 50 mg - Labs Labs: 08/23/16 07:07 08/23/16 07:07 - Head Exam Head Exam: ATRAUMATIC, NORMAL INSPECTION, NORMOCEPHALIC - Eye Exam Eye Exam: EOMI, Normal appearance, PERRL - ENT Exam ENT Exam: Mucous Membranes Moist, Normal Exam - Neck Exam Neck Exam: Full ROM, Normal Inspection. absent: Lymphadenopathy - Respiratory Exam Respiratory Exam: Clear to Ausculation Bilateral, NORMAL BREATHING PATTERN - Cardiovascular Exam Cardiovascular Exam: REGULAR RHYTHM, +S1, +S2. absent: Murmur - GI/Abdominal Exam GI & Abdominal Exam: Soft, Normal Bowel Sounds. absent: Tenderness - Neurological Exam Neurological Exam: Abnormal Gait, Alert, CN II-XII Intact Neuro motor strength exam: Left Upper Extremity: 5, Right Upper Extremity: 4, Left Lower Extremity: 5, Right Lower Extremity: 4 Additional comments: Neurologically unchanged compared with previous examination. Assessment and Plan (1) Ischemic stroke Assessment & Plan: Continue current medications and follow-up on results of cardiac work-up for dysrrhythmia or other cardio-embolic causes. PT/OT/ST is needed, most likely in an inpatient setting. Will give Seroquel 25 mg QHS for hallucinations. Avoid benzodiazepines or opiates. Status: Acute
--- NOTE | 2016-08-24 06:45 | CP.PCM.CON ---
History of Present Illness - History of Present Illness History of Present Illness: Patient seen and evaluated Admitted with CVA For ANTONIO and bubble study tomorrow NPO after MN except meds D/W Patient who agreed for the procedure Past Patient History - Infectious Disease Hx of Infectious Diseases: None - Past Medical History & Family History Past Medical History?: Yes - Past Social History Smoking Status: Never Smoked - CARDIAC Hx Cardiac Disorders: No - PULMONARY Hx Respiratory Disorders: No - NEUROLOGICAL Hx Neurological Disorder: No - HEENT Hx HEENT Problems: No - RENAL Hx Chronic Kidney Disease: No - ENDOCRINE/METABOLIC Hx Endocrine Disorders: No - HEMATOLOGICAL/ONCOLOGICAL Hx Blood Disorders: No - INTEGUMENTARY Hx Dermatological Problems: No - MUSCULOSKELETAL/RHEUMATOLOGICAL Hx Musculoskeletal Disorders: No Hx Falls: No - GASTROINTESTINAL Hx Gastrointestinal Disorders: No - GENITOURINARY/GYNECOLOGICAL Hx Genitourinary Disorders: No - PSYCHIATRIC Hx Psychophysiologic Disorder: Yes Hx Anxiety: Yes Hx Depression: Yes Hx Substance Use: No - SURGICAL HISTORY Hx Surgeries: Yes Hx Section: Yes Hx Orthopedic Surgery: Yes (Right Knee) Other/Comment: Rt knee surgery 2 yrs. ago - ANESTHESIA Hx Anesthesia: Yes Hx Anesthesia Reactions: No Has any member of the family had a problem w/ anesthesia?: No Meds Allergies/Adverse Reactions: Allergies Allergy/AdvReac Type Severity Reaction Status Date / Time No Known Allergies Allergy Verified 08/20/16 16:51 - Medications Medications: Current Medications Aspirin (Ecotrin) 81 mg PO DAILY [facility] Last Admin: 08/23/16 09:34 Dose: 81 mg Clopidogrel Bisulfate (Plavix) 75 mg PO DAILY [facility] Last Admin: 08/23/16 09:34 Dose: 75 mg Divalproex Sodium (Depakote Dr) 250 mg PO BID [facility] Last Admin: 08/23/16 17:13 Dose: 250 mg Famotidine (Pepcid) 20 mg PO BID [facility] Last Admin: 08/23/16 17:14 Dose: 20 mg Folic Acid (Folic Acid) 1 mg PO DAILY [facility] Last Admin: 08/23/16 09:33 Dose: 1 mg Gabapentin (Neurontin) 100 mg PO TID [facility] Last Admin: 08/23/16 17:14 Dose: 100 mg Hydroxyzine HCl (Atarax) 25 mg PO Q6 PRN PRN Reason: Anxiety Lorazepam (Ativan) 1 mg IVP Q6H PRN PRN Reason: Anxiety Last Admin: 08/22/16 12:04 Dose: 1 mg Multivitamins (Hexavitamin) 1 tab PO DAILY [facility] Last Admin: 08/23/16 09:38 Dose: 1 tab Rosuvastatin Calcium (Crestor) 10 mg PO HS [facility] Last Admin: 08/23/16 21:07 Dose: 10 mg Thiamine HCl (Vitamin B1 Tab) 100 mg PO DAILY [facility] Last Admin: 08/23/16 09:33 Dose: 100 mg Trazodone HCl (Desyrel) 50 mg PO HS [facility] Last Admin: 08/23/16 21:07 Dose: 50 mg Results - Vital Signs Recent Vital Signs: Last Vital Signs Temp 98.7 F 08/23/16 23:50 Pulse 89 08/23/16 23:50 Resp 20 08/23/16 23:50 BP 113/75 08/23/16 23:50 Pulse Ox 99 08/23/16 23:50 - Labs Result Diagrams: 08/23/16 07:07 08/23/16 07:07 Labs: Laboratory Results - last 24 hr 08/23/16 08/23/16 07:07 07:07 WBC 4.9 RBC 3.39 L Hgb 10.9 L Hct 33.7 L MCV 99.2 H MCH 32.2 H MCHC 32.5 L RDW 14.4 Plt Count 156 MPV 8.9 Neut % (Auto) 41.4 L Lymph % (Auto) 44.6 H Hitchcock % (Auto) 10.9 H Eos % (Auto) 2.0 Baso % (Auto) 1.1 Neut # 2.0 Lymph # 2.2 Hitchcock # 0.5 Eos # 0.1 Baso # 0.1 Sodium 139 Potassium 4.2 Chloride 103 Carbon Dioxide 26 Anion Gap 14 BUN 8 Creatinine 0.5 L Est GFR ( Amer) > 60 Est GFR (Non-Af Amer) > 60 Random Glucose 89 Calcium 8.3 L Magnesium 1.9 Total Bilirubin 0.7 AST 80 H ALT 57 H Alkaline Phosphatase 44 Total Protein 6.3 Albumin 3.3 L Globulin 2.9 Albumin/Globulin Ratio 1.1
[2016-08-24 07:33] LABS: BASO # 0.1 K/uL (0.0-0.2); BASO % 1.1 % (0.0-2.0); EOS # 0.1 K/uL (0.0-0.7); EOS % 1.5 % (0.0-4.0); HEMATOCRIT 34.4 % (34.0-47.0); LYMPH # 1.8 K/uL (1.0-4.3); LYMPH % 34.4 % (20.0-40.0); MEAN CELL VOLUME 98.3 fL (81.0-99.0); MEAN CORPUSCULAR HEMOGLOBIN 32.3 pg (27.0-31.0); MEAN CORPUSCULAR HGB CONC 32.8 g/dL (33.0-37.0); MEAN PLATELET VOLUME 8.8 fL (7.2-11.7); MONO # 0.6 K/uL (0.0-0.8); MONO % 11.6 % (0.0-10.0); RED CELL DISTRIBUTION WIDTH 14.5 % (11.5-14.5); WHITE BLOOD COUNT 5.3 K/uL (4.8-10.8)
[2016-08-24 07:52] LABS: CHLORIDE 101 mmol/L (98-107); POTASSIUM 4.7 mmol/L (3.6-5.2); SODIUM 137 mmol/L (132-148)
[2016-08-24 07:54] LABS: AST/SGOT 70 U/L (14-36); BILIRUBIN,TOTAL 0.7 mg/dL (0.2-1.3); CARBON DIOXIDE 28 mmol/L (22-30); GFR AFRICAN-AMERICAN > 60
[2016-08-24 07:55] LABS: ALB/GLOB RATIO 1.2 (1.0-2.1); ALKALINE PHOSPHATASE 44 U/L (38-126); ALT/SGPT 60 U/L (9-52); BLOOD UREA NITROGEN 8 mg/dL (7-17); CALCIUM 8.7 mg/dl (8.6-10.4); GLUCOSE,RANDOM 86 mg/dL (65-105); MAGNESIUM 2.1 mg/dL (1.6-2.3); TOTAL PROTEIN 6.5 g/dL (6.3-8.3)
[2016-08-24] MEDS: Multiple Vitamins Tab PO SCH (10:13)
[2016-08-24] MEDS: Divalproex 250 mg DR Tab PO SCH ×2 (10:13→17:52)
[2016-08-25 02:31] VITALS: RESP 20
--- NOTE | 2016-08-25 07:35 | HP ---
The patient was admitted to the hospital with chief complaint of weakness, fatigue, tiredness, syncop al episode after drinking. The patient stopped the day before. The patient was walking in the stree t and had a sudden drop attack. Denies tongue biting. The patient has history of alcohol abuse. De nies ____. PHYSICAL EXAMINATION: GENERAL: The patient is awake, alert, oriented. VITAL SIGNS: Temperature 98, pulse 90. HEENT: Within normal limits. NECK: Supple. CHEST: Symmetrical. HEART: Regular. ABDOMEN: Soft. EXTREMITIES: No edema. The [id number] suffers alcohol abuse, delirium tremens as well as seizure. The patient will get bedres t, neuro checks. Caroline Vang MD cc: [id number] TT: 08/23/2016 11:55:19 tn
[2016-08-25 07:39] LABS: BASO % 0.8 % (0.0-2.0); EOS # 0.1 K/uL (0.0-0.7); EOS % 1.6 % (0.0-4.0); HEMATOCRIT 35.1 % (34.0-47.0); LYMPH # 1.8 K/uL (1.0-4.3); LYMPH % 33.4 % (20.0-40.0); MEAN CELL VOLUME 98.2 fL (81.0-99.0); MEAN CORPUSCULAR HEMOGLOBIN 32.6 pg (27.0-31.0); MEAN CORPUSCULAR HGB CONC 33.2 g/dL (33.0-37.0); MEAN PLATELET VOLUME 8.5 fL (7.2-11.7); MONO # 0.7 K/uL (0.0-0.8); MONO % 13.5 % (0.0-10.0); RED CELL DISTRIBUTION WIDTH 14.6 % (11.5-14.5); WHITE BLOOD COUNT 5.4 K/uL (4.8-10.8)
[2016-08-25 07:57] LABS: CHLORIDE 99 mmol/L (98-107)
[2016-08-25 07:58] LABS: POTASSIUM 4.6 mmol/L (3.6-5.2); SODIUM 137 mmol/L (132-148)
[2016-08-25 08:00] LABS: GFR AFRICAN-AMERICAN > 60
[2016-08-25 08:01] LABS: ALB/GLOB RATIO 1.2 (1.0-2.1); ALKALINE PHOSPHATASE 44 U/L (38-126); ALT/SGPT 51 U/L (9-52); AST/SGOT 66 U/L (14-36); BILIRUBIN,TOTAL 0.6 mg/dL (0.2-1.3); BLOOD UREA NITROGEN 11 mg/dL (7-17); CALCIUM 8.7 mg/dl (8.6-10.4); CARBON DIOXIDE 28 mmol/L (22-30); GLUCOSE,RANDOM 80 mg/dL (65-105); TOTAL PROTEIN 6.7 g/dL (6.3-8.3)
[2016-08-25 08:02] LABS: MAGNESIUM 2.3 mg/dL (1.6-2.3)
--- NOTE | 2016-08-25 08:25 | DS ---
The patient admitted to the hospital with chief complaint of weakness, fatigue, tiredness, passing ou t . The patient placed on bedrest, EEG, MRI. Seen by neurologist. Potassium correction. The patient received supportive care. Will be discharged, followed up by neurology. Advised to seek [facility] p for alcohol cessation. Caroline Vang MD cc: [id number] TT: 08/24/2016 08:33:56 en
[2016-08-25] MEDS: Divalproex 250 mg DR Tab PO SCH ×2 (10:00→18:25)
--- NOTE | 2016-08-25 13:06 | CT ---
PROCEDURE: CT Angiography of the neck and Brain. HISTORY: stroke COMPARISON: None available. TECHNIQUE: CT angiography of the intracranial arteries was performed. Coronal and sagittal maximum intensity projection reformated images were generated. This CT exam was performed using one or more of the following dose reduction techniques: Automated exposure control, adjustment of the mA and/or kV according to patient size, and/or use of iterative reconstruction technique. FINDINGS: CTA of the neck. No evidence of focal hemodynamically significant stenosis in the carotid arteries at the neck. The visualized portion of the aortic arch is grossly unremarkable. The subclavian arteries are patent. The vertebral arteries are patent. INTERNAL CEREBRAL ARTERIES: No evidence of significant stenosis. . The skull base, petrous, cavernous and supraclinoid segments are bilaterally widely patient. ANTERIOR CEREBRAL ARTERIES: No evidence of focal stenosis . A1 and A2 segments are widely patent. Smaller distal branches unremarkable, as visualized. MIDDLE CEREBRAL ARTERIES: No evidence of focal stenosis. . M1 and M2 segments are widely patent. Perisylvian branches grossly symmetric. POSTERIOR CIRCULATION: Basilar Artery: Unremarkable. Distal Vertebral Arteries: Unremarkable. Posterior Cerebral Arteries: Unremarkable. Posterior Inferior Cerebellar Arteries: Unremarkable. ANEURYSM/ VASCULAR MALFORMATIONS: None. OTHER FINDINGS: None. IMPRESSION: No evidence of hemodynamically significant stenosis in the carotid arteries at the neck or in the intracranial arteries. No evidence of aneurysm or acute pathology. Preliminary report was submitted by [facility].
[2016-08-25] MEDS: Multiple Vitamins Tab PO SCH (13:22)
--- NOTE | 2016-08-25 18:02 | CP.PCM.PN ---
Subjective - Date & Time of Evaluation Date of Evaluation: 08/25/16 Time of Evaluation: 16:00 - Subjective Subjective: Medicine Progress Note- Dr. Lemus's Service: Patient not seen this morning since patient was at ANTONIO. Patient seen and examined at bedside this afternoon. She did not eat for 2 hours after ANTONIO as instructed. Patient reports she is feeling like she cannot articulate as well as before. Patient appears to be very shaky and anxious. I spoke to patient regarding ECHO findings (thickened mitral valve and possible endocarditis) and patient became more and anxious and tearful.S he is tearful and thinking about her mother's "heart valve problem" and that she shortly after. Denies chest pain, SOB, fevers, chills, palpitations. Admits she is still having some unsteadiness when ambulating. Objective - Vital Signs/Intake and Output Vital Signs (last 24 hours): Temp Pulse Resp BP Pulse Ox 99.2 F 92 H 20 115/75 99 08/25/16 15:46 08/25/16 15:46 08/25/16 15:46 08/25/16 15:46 08/25/16 15:46 Intake and Output: 08/25/16 08/25/16 06:59 18:59 Intake Total 500 Output Total 2 Balance 498 - Medications Medications: Current Medications Aspirin (Ecotrin) 81 mg PO DAILY [facility] Last Admin: 08/25/16 13:22 Dose: 81 mg Clopidogrel Bisulfate (Plavix) 75 mg PO DAILY [facility] Last Admin: 08/25/16 13:22 Dose: 75 mg Divalproex Sodium (Depakote Dr) 250 mg PO BID [facility] Last Admin: 08/25/16 10:00 Dose: Not Given Famotidine (Pepcid) 20 mg PO BID [facility] Last Admin: 08/25/16 13:22 Dose: 20 mg Folic Acid (Folic Acid) 1 mg PO DAILY [facility] Last Admin: 08/25/16 13:21 Dose: 1 mg Gabapentin (Neurontin) 100 mg PO TID [facility] Last Admin: 08/25/16 13:26 Dose: 100 mg Hydroxyzine HCl (Atarax) 25 mg PO Q6 PRN PRN Reason: Anxiety Lorazepam (Ativan) 1 mg IVP Q6H PRN PRN Reason: Anxiety Last Admin: 08/22/16 12:04 Dose: 1 mg Multivitamins (Hexavitamin) 1 tab PO DAILY [facility] Last Admin: 08/25/16 13:22 Dose: 1 tab Nystatin (Nystatin Oral Susp) 5 ml PO QID [facility] Rosuvastatin Calcium (Crestor) 10 mg PO HS [facility] Last Admin: 08/24/16 22:03 Dose: 10 mg Thiamine HCl (Vitamin B1 Tab) 100 mg PO DAILY [facility] Last Admin: 08/25/16 13:21 Dose: 100 mg Trazodone HCl (Desyrel) 50 mg PO HS [facility] Last Admin: 08/24/16 22:03 Dose: 50 mg - Labs Labs: 08/25/16 07:50 08/25/16 04:00 PT 11.1 SECONDS (9.7-12.2) 08/25/16 08:00 INR 1.0 08/25/16 08:00 - Constitutional Appears: No Acute Distress - Head Exam Head Exam: NORMAL INSPECTION, NORMOCEPHALIC - Eye Exam Eye Exam: EOMI, Normal appearance - ENT Exam ENT Exam: Mucous Membranes Moist - Neck Exam Neck Exam: Full ROM, Normal Inspection - Respiratory Exam Respiratory Exam: Clear to Ausculation Bilateral, NORMAL BREATHING PATTERN - Cardiovascular Exam Cardiovascular Exam: REGULAR RHYTHM - GI/Abdominal Exam GI & Abdominal Exam: Soft, Normal Bowel Sounds - Extremities Exam Extremities Exam: Full ROM - Back Exam Back Exam: NORMAL INSPECTION - Neurological Exam Neurological Exam: Alert, Awake, Oriented x3 - Psychiatric Exam Psychiatric exam: Anxious - Skin Skin Exam: Dry, Normal Color, Warm Assessment and Plan - Assessment and Plan (Free Text) Assessment: (1) Ischemic stroke Neuro consult placed- Dr. Skinner MRI of the brain showed a left caudate and basal ganglia acute and subacute ischemic stroke. As per Dr. Skinner: * Start aspirin 81 mg daily and Plavix 75 mg daily for 21 days per the [facility] protocol and after 21 days continue only aspirin 81 mg indefinitely. * Seroquel 25 mg QHS for hallucinations. Avoid benzodiazepines or opiates. Cardio- Dr. Juan consulted for cardiac work-up for dysrrhythmia or other cardio- embolic causes. Echocardiogram with bubble study done today. As discussed with Dr. Juan, patient with thickened heart valve. Cannot rule out endocarditis (see workup below) f/u carotid dopplers f/u venous dopplers Continue Crestor 10 mg PO HS, ASA 81 mg PO daily and Plavix for 21 days. PT/OT Speech Therapy Fall risk protocol (2) Thickened Mitral Valve Echocardiogram with bubble study done today. As discussed with Dr. Juan, patient with thickened heart valve. Cannot rule out endocarditis (see workup below). ID consult- Dr. Mattson-help appreciated. As per Dr. Mattson, will treat imperically. f/u blood cultures X2. (3) Fall Assessment & Plan: Head CT this AM negative for IC bleed. UDS negative Neuro consult placed- Dr. Skinner EEG done D/C Depakote and Gabapentin as patient's symptoms likely 2/2 stroke. UDS negative PT/OT Status: Acute Status: Acute (4) Alcohol withdrawal Assessment & Plan: Psych consult placed- Dr. Sweeney- loc appreciated. Ativan PRN Thiamine 100 mg PO daily MV PO daily Folic Acid 1 mg PO daily Seizure, fall and aspiration precautions. Status: Acute (5) Bipolar 1 disorder most recent episode manic moderate Psych consult placed- Dr. Sweeney- loc appreciated. CBT Psychoeducation Supportive therapy, group therapy, individual therapy Depakote 250 mg by mouth BID Neurontin 100 mg by mouth 3 times a day Trazodone 50 mg by mouth daily at bedtime (6) Hypokalemia Assessment & Plan: K+ 4.6 today. f/u CMP in the AM Status: Acute (7) Prophylactic measure Assessment & Plan: Pepcid 2mg PO BID SCDs Status: Acute all management as per Dr. Lemus.
[2016-08-25] MEDS: Nystatin 100,000 Units/ml Oral Susp 5 ml UD PO SCH ×2 (18:25→22:03)
[2016-08-25] MEDS: cefTRIAXone 2 GM in Sodium Chloride 0.9% 100 ML IVPB SCH (21:00)
[2016-08-25] MEDS ORDERED: Vancomycin 1 gm/NS 200 ml 1 GM/200 ML BAG IVPB ONE (22:00)
--- NOTE | 2016-08-25 23:15 | CARD ---
APPROVED REPORT EXAM: Transesophageal echocardiogram with color flow Doppler. INDICATION CVA/TIA Reason For Test : Rule out cardiac source of emboli. PROCEDURE After obtaining informed consent, patient underwent transesophageal echo in the [employer]. Type of Sedation : Conscious Sedation Sedation was provided by anesthesiologist. Sedation was achieved with intravenously. The ANTONIO was performed complications. Throughout the procedure, the blood pressure, pulse oximetry, cardiac rhythm, and rate were monitored. The patient tolerated the procedure without adverse effects. Recovery from conscious sedation was uneventful and vital signs were stable. LEFT VENTRICLE The left ventricle is normal size. The left ventricular function is normal. The left ventricular ejection fraction is within the normal range. There is normal LV segmental wall motion. No left ventricle thrombus noted on this study. There is no ventricular septal defect visualized. There is no left ventricular aneurysm. There is no mass noted in the left ventricle. RIGHT VENTRICLE The right ventricle is normal size. The right ventricular systolic function is normal. ATRIA The left atrium size is normal. The right atrium size is normal. The interatrial septum is intact with no evidence for an atrial septal defect. Left Atrial appendage free of thrombus AORTIC VALVE The aortic valve is normal in structure. No aortic regurgitation is present. There is no aortic valvular stenosis. There is no aortic valvular vegetation. MITRAL VALVE Anterior Mitral leaflet thickened. Endocarditis can't be ruled out. Clinical correlation recommended There is no evidence of mitral valve prolapse. There is no mitral valve stenosis. Mitral regurgitation is mild. PULMONIC VALVE The pulmonary valve is normal in structure. There is no pulmonic valvular regurgitation. There is no pulmonic valvular stenosis. GREAT VESSELS The aortic root is normal in size. <Conclusion> The left ventricular function is normal. The left ventricular ejection fraction is within the normal range. The right ventricle is normal size. The interatrial septum is intact with no evidence for an atrial septal defect. Left Atrial appendage free of thrombus The aortic valve is normal in structure. Anterior Mitral leaflet thickened. Endocarditis can't be ruled out. Clinical correlation recommended
--- NOTE | 2016-08-26 00:08 | CP.PCM.PN ---
Subjective - Date & Time of Evaluation Date of Evaluation: 08/25/16 Time of Evaluation: 13:10 - Subjective Subjective: Patient s/p ANTONIO Thickened Mitral leaflets Endocarditis can't be excluded (Patiet prior ECHO Mitral valve normal as per the report) Recommend clinical correlation Objective - Vital Signs/Intake and Output Vital Signs (last 24 hours): Temp Pulse Resp BP Pulse Ox 99.2 F 92 H 20 115/75 99 08/25/16 15:46 08/25/16 15:46 08/25/16 15:46 08/25/16 15:46 08/25/16 15:46 Intake and Output: 08/25/16 08/26/16 18:59 06:59 Intake Total 300 Balance 300 - Medications Medications: Current Medications Aspirin (Ecotrin) 81 mg PO DAILY [facility] Last Admin: 08/25/16 13:22 Dose: 81 mg Clopidogrel Bisulfate (Plavix) 75 mg PO DAILY [facility] Last Admin: 08/25/16 13:22 Dose: 75 mg Divalproex Sodium (Depakote Dr) 250 mg PO BID [facility] Last Admin: 08/25/16 18:25 Dose: 250 mg Famotidine (Pepcid) 20 mg PO BID [facility] Last Admin: 08/25/16 18:25 Dose: 20 mg Folic Acid (Folic Acid) 1 mg PO DAILY [facility] Last Admin: 08/25/16 13:21 Dose: 1 mg Gabapentin (Neurontin) 100 mg PO TID [facility] Last Admin: 08/25/16 18:25 Dose: 100 mg Hydroxyzine HCl (Atarax) 25 mg PO Q6 PRN PRN Reason: Anxiety Ceftriaxone Sodium 2 gm/ (Sodium Chloride) 100 mls @ 100 mls/hr IVPB Q24H [facility] Last Admin: 08/25/16 21:00 Dose: 100 mls/hr Lorazepam (Ativan) 1 mg IVP Q6H PRN PRN Reason: Anxiety Last Admin: 08/22/16 12:04 Dose: 1 mg Multivitamins (Hexavitamin) 1 tab PO DAILY [facility] Last Admin: 08/25/16 13:22 Dose: 1 tab Nystatin (Nystatin Oral Susp) 5 ml PO QID [facility] Last Admin: 08/25/16 22:03 Dose: 5 ml Rosuvastatin Calcium (Crestor) 10 mg PO HS [facility] Last Admin: 08/25/16 22:03 Dose: 10 mg Thiamine HCl (Vitamin B1 Tab) 100 mg PO DAILY [facility] Last Admin: 08/25/16 13:21 Dose: 100 mg Trazodone HCl (Desyrel) 50 mg PO [facility] Last Admin: 08/25/16 22:03 Dose: 50 mg - Labs Labs: 08/25/16 07:50 08/25/16 04:00 PT 11.1 SECONDS (9.7-12.2) 08/25/16 08:00 INR 1.0 08/25/16 08:00
[2016-08-26 07:01] LABS: CHLORIDE 99 mmol/L (98-107); POTASSIUM 3.8 mmol/L (3.6-5.2); SODIUM 135 mmol/L (132-148)
[2016-08-26 07:03] LABS: ALKALINE PHOSPHATASE 51 U/L (38-126); AST/SGOT 51 U/L (14-36); BILIRUBIN,TOTAL 0.5 mg/dL (0.2-1.3); CARBON DIOXIDE 27 mmol/L (22-30); GFR AFRICAN-AMERICAN > 60
[2016-08-26 07:04] LABS: ALB/GLOB RATIO 1.1 (1.0-2.1); ALT/SGPT 46 U/L (9-52); BLOOD UREA NITROGEN 9 mg/dL (7-17); CALCIUM 8.3 mg/dl (8.6-10.4); GLUCOSE,RANDOM 81 mg/dL (65-105); MAGNESIUM 2.2 mg/dL (1.6-2.3); PHOSPHOROUS 5.1 mg/dL (2.5-4.5); TOTAL PROTEIN 6.7 g/dL (6.3-8.3)
[2016-08-26 07:28] LABS: BASO # 0.1 K/uL (0.0-0.2); BASO % 1.1 % (0.0-2.0); EOS # 0.1 K/uL (0.0-0.7); EOS % 1.4 % (0.0-4.0); HEMATOCRIT 33.9 % (34.0-47.0); LYMPH # 1.8 K/uL (1.0-4.3); LYMPH % 30.1 % (20.0-40.0); MEAN CELL VOLUME 98.2 fL (81.0-99.0); MEAN CORPUSCULAR HEMOGLOBIN 32.6 pg (27.0-31.0); MEAN CORPUSCULAR HGB CONC 33.2 g/dL (33.0-37.0); MEAN PLATELET VOLUME 8.8 fL (7.2-11.7); MONO # 0.9 K/uL (0.0-0.8); MONO % 14.5 % (0.0-10.0); RED CELL DISTRIBUTION WIDTH 14.6 % (11.5-14.5); WHITE BLOOD COUNT 5.9 K/uL (4.8-10.8)
[2016-08-26] MEDS: Sodium Chloride 0.9% 1,000 ML IV SCH (09:30)
[2016-08-26] MEDS: Nystatin 100,000 Units/ml Oral Susp 5 ml UD PO SCH ×4 (10:15→22:22)
[2016-08-26] MEDS: Multiple Vitamins Tab PO SCH (10:15)
[2016-08-26] MEDS: Divalproex 250 mg DR Tab PO SCH ×2 (10:17→18:22)
--- NOTE | 2016-08-26 10:49 | CP.PCM.PN ---
Subjective - Date & Time of Evaluation Date of Evaluation: 08/26/16 Time of Evaluation: 10:45 - Subjective Subjective: Medicine Progress Note Patient seen and examined. Patient states that she feels well and is in a positive mood today. She is aware that she may need [facility] antibiotics pending her blood culture results. Dr Lemus spoke with Dr Mattson who started pt on IV antibiotics last night. Denies fever, chills, nausea, vomiting, chest pain and shortness of breath. Objective - Vital Signs/Intake and Output Vital Signs (last 24 hours): Temp Pulse Resp BP Pulse Ox 98.3 F 70 20 99/62 L 98 08/26/16 07:20 08/26/16 08:00 08/26/16 07:20 08/26/16 07:20 08/26/16 07:20 Intake and Output: 08/26/16 08/26/16 06:59 18:59 Intake Total 420 Balance 420 - Medications Medications: Current Medications Aspirin (Ecotrin) 81 mg PO DAILY [facility] Last Admin: 08/26/16 10:16 Dose: 81 mg Clopidogrel Bisulfate (Plavix) 75 mg PO DAILY [facility] Last Admin: 08/26/16 10:15 Dose: 75 mg Divalproex Sodium (Depakote Dr) 250 mg PO BID [facility] Last Admin: 08/26/16 10:17 Dose: 250 mg Famotidine (Pepcid) 20 mg PO BID [facility] Last Admin: 08/26/16 10:16 Dose: 20 mg Folic Acid (Folic Acid) 1 mg PO DAILY [facility] Last Admin: 08/26/16 10:15 Dose: 1 mg Gabapentin (Neurontin) 100 mg PO TID [facility] Last Admin: 08/26/16 10:15 Dose: 100 mg Hydroxyzine HCl (Atarax) 25 mg PO Q6 PRN PRN Reason: Anxiety Last Admin: 08/26/16 10:17 Dose: 25 mg Ceftriaxone Sodium 2 gm/ (Sodium Chloride) 100 mls @ 100 mls/hr IVPB Q24H [facility] Last Admin: 08/25/16 21:00 Dose: 100 mls/hr Sodium Chloride (Sodium Chloride 0.9%) 1,000 mls @ 60 mls/hr IV .[id number] [facility] Last Admin: 08/26/16 09:30 Dose: 60 mls/hr Lorazepam (Ativan) 1 mg IVP Q6H PRN PRN Reason: Anxiety Last Admin: 08/22/16 12:04 Dose: 1 mg Multivitamins (Hexavitamin) 1 tab PO DAILY [facility] Last Admin: 08/26/16 10:15 Dose: 1 tab Nystatin (Nystatin Oral Susp) 5 ml PO QID [facility] Last Admin: 08/26/16 10:15 Dose: 5 ml Rosuvastatin Calcium (Crestor) 10 mg PO HS [facility] Last Admin: 08/25/16 22:03 Dose: 10 mg Thiamine HCl (Vitamin B1 Tab) 100 mg PO DAILY [facility] Last Admin: 08/26/16 10:16 Dose: 100 mg Trazodone HCl (Desyrel) 50 mg PO HS [facility] Last Admin: 08/25/16 22:03 Dose: 50 mg - Labs Labs: 08/26/16 06:28 08/26/16 06:28 PT 11.1 SECONDS (9.7-12.2) 08/25/16 08:00 INR 1.0 08/25/16 08:00 - Constitutional Appears: Non-toxic, No Acute Distress - Head Exam Head Exam: ATRAUMATIC, NORMOCEPHALIC - Eye Exam Eye Exam: EOMI, Normal appearance - ENT Exam ENT Exam: Normal Exam - Respiratory Exam Respiratory Exam: Clear to Ausculation Bilateral, NORMAL BREATHING PATTERN. absent: Rhonchi, Wheezes, Respiratory Distress - Cardiovascular Exam Cardiovascular Exam: REGULAR RHYTHM, +S1, +S2 - GI/Abdominal Exam GI & Abdominal Exam: Soft, Normal Bowel Sounds - Neurological Exam Neurological Exam: Alert, Awake, Oriented x3 - Psychiatric Exam Psychiatric exam: Normal Affect, Normal Mood - Skin Skin Exam: Dry, Intact, Normal Color, Warm Assessment and Plan - Assessment and Plan (Free Text) Assessment: (1) Ischemic stroke Neuro consult placed- Dr. Skinner MRI of the brain showed a left caudate and basal ganglia acute and subacute ischemic stroke. As per Dr. Skinner: * Start aspirin 81 mg daily and Plavix 75 mg daily for 21 days per the [facility] protocol and after 21 days continue only aspirin 81 mg indefinitely. * Seroquel 25 mg QHS for hallucinations. Avoid benzodiazepines or opiates. Cardio- Dr. Juan consulted for cardiac work-up for dysrrhythmia or other cardio- embolic causes. Echocardiogram with bubble study done today. As discussed with Dr. Juan, patient with thickened heart valve. Cannot rule out endocarditis (see workup below) f/u carotid dopplers f/u venous dopplers Continue Crestor 10 mg PO HS, ASA 81 mg PO daily and Plavix for 21 days. PT/OT Speech Therapy Fall risk protocol (2) Thickened Mitral Valve Echocardiogram with bubble study done. As discussed with Dr. Juan, patient with thickened heart valve. Cannot rule out endocarditis (see workup below). ID consult- Dr. Mattson-help appreciated. Started Ceftriaxone 2gm IV q24h on 08/[address] Mattson, will treat imperically. f/u blood cultures X2. (3) Fall Assessment & Plan: Head CT this negative for IC bleed. UDS negative Neuro consult placed- Dr. Skinner EEG done D/C Depakote and Gabapentin as patient's symptoms likely 2/2 stroke. UDS negative PT/OT Status: Acute Status: Acute (4) Alcohol withdrawal Assessment & Plan: Psych consult placed- Dr. Sweeney- loc appreciated. Ativan PRN Thiamine 100 mg PO daily MV PO daily Folic Acid 1 mg PO daily Seizure, fall and aspiration precautions. Status: Acute (5) Bipolar 1 disorder most recent episode manic moderate Psych consult placed- Dr. Sweeney- loc appreciated. CBT Psychoeducation Supportive therapy, group therapy, individual therapy Depakote 250 mg by mouth BID Neurontin 100 mg by mouth 3 times a day Trazodone 50 mg by mouth daily at bedtime (6) Hypokalemia Assessment & Plan: K+ 3.8 today. f/u CMP in the AM Status: Acute (7) Prophylactic measure Assessment & Plan: Pepcid 2mg PO BID SCD[facility] Status: Acute all management as per Dr. Lemus.
--- NOTE | 2016-08-26 12:12 | CP.PCM.CON ---
History of Present Illness - History of Present Illness History of Present Illness: 50-year-old female, PMHx includes EtOH Abuse, presents to the emergency department with complaints of seizure. Patient states she tried to quit drinking , and has not had a drink in 1.5 days. Today, patient was having increased tremors, and had a witnessed seizure by bystander. 911 called and patient was found to be mildly lethargic upon arrival of EMS, questionable post-ictal? Currently patient is awake and alert and has no complaints at this time. hadd ANTONIO ? vegetation await Dr Drake david-evdonna srtart IV antibiotics after cultures Past Patient History - Infectious Disease Hx of Infectious Diseases: None - Past Medical History & Family History Past Medical History?: Yes - Past Social History Smoking Status: Never Smoked - CARDIAC Hx Cardiac Disorders: No - PULMONARY Hx Respiratory Disorders: No - NEUROLOGICAL Hx Neurological Disorder: No - HEENT Hx HEENT Problems: No - RENAL Hx Chronic Kidney Disease: No - ENDOCRINE/METABOLIC Hx Endocrine Disorders: No - HEMATOLOGICAL/ONCOLOGICAL Hx Blood Disorders: No - INTEGUMENTARY Hx Dermatological Problems: No - MUSCULOSKELETAL/RHEUMATOLOGICAL Hx Musculoskeletal Disorders: No Hx Falls: No - GASTROINTESTINAL Hx Gastrointestinal Disorders: No - GENITOURINARY/GYNECOLOGICAL Hx Genitourinary Disorders: No - PSYCHIATRIC Hx Psychophysiologic Disorder: Yes Hx Anxiety: Yes Hx Depression: Yes Hx Substance Use: No - SURGICAL HISTORY Hx Surgeries: Yes Hx Section: Yes Hx Orthopedic Surgery: Yes (Right Knee) Other/Comment: Rt knee surgery 2 yrs. ago - ANESTHESIA Hx Anesthesia: Yes Hx Anesthesia Reactions: No Has any member of the family had a problem w/ anesthesia?: No Meds Allergies/Adverse Reactions: Allergies Allergy/AdvReac Type Severity Reaction Status Date / Time No Known Allergies Allergy Verified 08/20/16 16:51 - Medications Medications: Current Medications Aspirin (Ecotrin) 81 mg PO DAILY [facility] Last Admin: 08/26/16 10:16 Dose: 81 mg Clopidogrel Bisulfate (Plavix) 75 mg PO DAILY [facility] Last Admin: 08/26/16 10:15 Dose: 75 mg Divalproex Sodium (Depakote Dr) 250 mg PO BID [facility] Last Admin: 08/26/16 10:17 Dose: 250 mg Famotidine (Pepcid) 20 mg PO BID [facility] Last Admin: 08/26/16 10:16 Dose: 20 mg Folic Acid (Folic Acid) 1 mg PO DAILY [facility] Last Admin: 08/26/16 10:15 Dose: 1 mg Gabapentin (Neurontin) 100 mg PO TID [facility] Last Admin: 08/26/16 10:15 Dose: 100 mg Hydroxyzine HCl (Atarax) 25 mg PO Q6 PRN PRN Reason: Anxiety Last Admin: 08/26/16 10:17 Dose: 25 mg Ceftriaxone Sodium 2 gm/ (Sodium Chloride) 100 mls @ 100 mls/hr IVPB Q24H [facility] Last Admin: 08/25/16 21:00 Dose: 100 mls/hr Sodium Chloride (Sodium Chloride 0.9%) 1,000 mls @ 60 mls/hr IV .[id number] [facility] Last Admin: 08/26/16 09:30 Dose: 60 mls/hr Lorazepam (Ativan) 1 mg IVP Q6H PRN PRN Reason: Anxiety Last Admin: 08/22/16 12:04 Dose: 1 mg Multivitamins (Hexavitamin) 1 tab PO DAILY [facility] Last Admin: 08/26/16 10:15 Dose: 1 tab Nystatin (Nystatin Oral Susp) 5 ml PO QID [facility] Last Admin: 08/26/16 10:15 Dose: 5 ml Rosuvastatin Calcium (Crestor) 10 mg PO HS [facility] Last Admin: 08/25/16 22:03 Dose: 10 mg Thiamine HCl (Vitamin B1 Tab) 100 mg PO DAILY [facility] Last Admin: 08/26/16 10:16 Dose: 100 mg Trazodone HCl (Desyrel) 50 mg PO HS [facility] Last Admin: 08/25/16 22:03 Dose: 50 mg Results - Vital Signs Recent Vital Signs: Last Vital Signs Temp 98.3 F 08/26/16 07:20 Pulse 70 08/26/16 08:00 Resp 20 08/26/16 07:20 BP 99/62 L 08/26/16 07:20 Pulse Ox 98 08/26/16 07:20 - Labs Result Diagrams: 08/26/16 06:28 08/26/16 06:28 Labs: Laboratory Results - last 24 hr 08/26/16 08/26/16 08/26/16 06:28 06:28 11:34 WBC 5.9 RBC 3.45 L Hgb 11.3 Hct 33.9 L MCV 98.2 MCH 32.6 H MCHC 33.2 RDW 14.6 H Plt Count 220 MPV 8.8 Neut % (Auto) 52.9 Lymph % (Auto) 30.1 [place] % (Auto) 14.5 H Eos % (Auto) 1.4 Baso % (Auto) 1.1 Neut # 3.1 Lymph # 1.8 [place] # 0.9 H Eos # 0.1 Baso # 0.1 Sodium 135 Potassium 3.8 Chloride 99 Carbon Dioxide 27 Anion Gap 14 BUN 9 Creatinine 0.4 L Est GFR ( Amer) > 60 Est GFR (Non-Af Amer) > 60 POC Glucose (mg/dL) 95 Random Glucose 81 Calcium 8.3 L Phosphorus 5.1 H Magnesium 2.2 Total Bilirubin 0.5 AST 51 H D ALT 46 Alkaline Phosphatase 51 Total Protein 6.7 Albumin 3.5 Globulin 3.2 Albumin/Globulin Ratio 1.1
[2016-08-26] MEDS: Vancomycin 1 gm/NS 200 ml 1 GM/200 ML BAG IVPB SCH (14:11)
--- NOTE | 2016-08-26 14:25 | CP.PCM.PN ---
<FabianaCk - Last Filed: 08/26/16 18:31> Subjective - Date & Time of Evaluation Date of Evaluation: 08/26/16 Time of Evaluation: 14:22 - Subjective Subjective: Cardiology Progress Note Dr. Clark (covering for Dr. Juan) Patient seen and examined at bedside. No acute distress. No acute events overnight. Nursing staff reports no issues. The patient is anxious about her condition and expresses concern about leaving the hospital. The patient was counselled about her condition at the bedside. With the patient's permission, her sister remained present during the conversation. All of the patient's questions and concerns were addressed to her satisfaction. The patient denies all cardiopulmonary symptoms this morning. The patient does report mild headache. 12 point review of symptoms preformed and returned negative except for the above mentioned complaints. Objective - Vital Signs/Intake and Output Vital Signs (last 24 hours): Temp Pulse Resp BP Pulse Ox 98.3 F 70 20 99/62 L 98 08/26/16 07:20 08/26/16 08:00 08/26/16 07:20 08/26/16 07:20 08/26/16 07:20 Intake and Output: 08/26/16 08/26/16 06:59 18:59 Intake Total 420 Balance 420 - Medications Medications: Current Medications Aspirin (Ecotrin) 81 mg PO DAILY [facility] Last Admin: 08/26/16 10:16 Dose: 81 mg Clopidogrel Bisulfate (Plavix) 75 mg PO DAILY [facility] Last Admin: 08/26/16 10:15 Dose: 75 mg Divalproex Sodium (Depakote Dr) 250 mg PO BID [facility] Last Admin: 08/26/16 10:17 Dose: 250 mg Famotidine (Pepcid) 20 mg PO BID [facility] Last Admin: 08/26/16 10:16 Dose: 20 mg Folic Acid (Folic Acid) 1 mg PO DAILY [facility] Last Admin: 08/26/16 10:15 Dose: 1 mg Gabapentin (Neurontin) 100 mg PO TID [facility] Last Admin: 08/26/16 14:11 Dose: 100 mg Hydroxyzine HCl (Atarax) 25 mg PO Q6 PRN PRN Reason: Anxiety Last Admin: 08/26/16 10:17 Dose: 25 mg Ceftriaxone Sodium 2 gm/ (Sodium Chloride) 100 mls @ 100 mls/hr IVPB Q24H [facility] Last Admin: 08/25/16 21:00 Dose: 100 mls/hr Sodium Chloride (Sodium Chloride 0.9%) 1,000 mls @ 60 mls/hr IV .[id number] [facility] Last Admin: 08/26/16 09:30 Dose: 60 mls/hr Vancomycin/Sodium Chloride (Vancocin) 1 gm in 200 mls @ 133.333 mls/hr IVPB Q24H [facility] Stop: 08/31/16 13:01 Last Admin: 08/26/16 14:11 Dose: 133.333 mls/hr Lorazepam (Ativan) 1 mg IVP Q6H PRN PRN Reason: Anxiety Last Admin: 08/22/16 12:04 Dose: 1 mg Multivitamins (Hexavitamin) 1 tab PO DAILY [facility] Last Admin: 08/26/16 10:15 Dose: 1 tab Nystatin (Nystatin Oral Susp) 5 ml PO QID [facility] Last Admin: 08/26/16 14:11 Dose: 5 ml Rosuvastatin Calcium (Crestor) 10 mg PO [facility] Last Admin: 08/25/16 22:03 Dose: 10 mg Thiamine HCl (Vitamin B1 Tab) 100 mg PO DAILY [facility] Last Admin: 08/26/16 10:16 Dose: 100 mg Trazodone HCl (Desyrel) 50 mg PO [facility] Last Admin: 08/25/16 22:03 Dose: 50 mg - Labs Labs: 08/26/16 06:28 08/26/16 06:28 PT 11.1 SECONDS (9.7-12.2) 08/25/16 08:00 INR 1.0 08/25/16 08:00 - Constitutional Appears: Older Than Stated Age - Head Exam Head Exam: ATRAUMATIC, NORMAL INSPECTION, NORMOCEPHALIC - Eye Exam Eye Exam: EOMI, Normal appearance - ENT Exam ENT Exam: Mucous Membranes Moist, Normal Exam - Neck Exam Neck Exam: Full ROM, Normal Inspection. absent: Lymphadenopathy, Tenderness - Respiratory Exam Respiratory Exam: Clear to Ausculation Bilateral, NORMAL BREATHING PATTERN. absent: Rales, Rhonchi, Wheezes, Respiratory Distress, Stridor - Cardiovascular Exam Cardiovascular Exam: REGULAR RHYTHM, RRR, +S1, +S2. absent: Diastolic murmur, Murmur - GI/Abdominal Exam GI & Abdominal Exam: Soft, Normal Bowel Sounds. absent: Distended, Firm, Guarding, Rigid, Tenderness - Extremities Exam Extremities Exam: Full ROM, Normal Capillary Refill, Normal Inspection. absent : Joint Swelling, Pedal Edema - Neurological Exam Neurological Exam: Alert, Awake, CN II-XII Intact, Normal Gait, Oriented x3 - Skin Skin Exam: Dry, Intact, Normal Color, Warm Assessment and Plan (1) Thickened mitral leaflet Assessment & Plan: potentially 2/2 to Endocarditis - Mccarthy Criteria- negative (unlikely endocarditis) currently pending cultures (2major, 1 major + 3 minor, 5 minor = endocarditis is likely) : Major Criteria 1.) Micro Cultures Pending 2.) ANTONIO inconclusive: No New Regurgitant Murmur, Thickened Mitral Valve : Minor Criteria 1.) Denies IVDU 2.) Afebrile 3.) Vascular Phenomena- Cranial Infarct, unknown if related 4.) No immunologic phenomena (Osler Node, Morrissey Spots, ect.) 5.) Blood Cultures Pending - patient receiving IV vancomycin 1g q24 Continue: - Aspirin 81mg PO daily - Plavix 75mg PO Daily - Crestor 10mg PO HS Hemodynamically Stable 08/26/16 Carotid Doppler- mild disease b/l - official read pending 08/25/16 ANTONIO- normal left ventricular systolic function with normal EF (66% on echo), no thrombus in left atrial appendage, normal aortic valve, Thickening of Anterior Mitral Valve Leaflet (cannot rule out endocarditis) 08/22/16 Brain MRI- Two adjacent foci of diffusion restriction seen at the left caudate head and adjacent left putamen demonstrate no enhancement or surrounding vasogenic edema. Findings suspicious for acute infarcts. No evidence of enhancing mass lesion in the brain. No evidence of mass effect or midline shift. 08/22/16 CTA Head/Neck- No evidence of hemodynamically significant stenosis in the carotid arteries at the neck or in the intracranial arteries. No evidence of aneurysm or acute pathology 08/21/[address]- No evidence of acute intracranial hemorrhage or acute pathology in the brain. Case Discussed with Dr. Amber Jung PGY1 Status: Acute (2) Ischemic stroke Status: Acute <Esther Clark - Last Filed: 10/06/16 04:00> Objective - Vital Signs/Intake and Output Vital Signs (last 24 hours): Temp Pulse Resp BP Pulse Ox 98 F 69 20 125/78 100 09/01/16 16:39 09/01/16 16:39 09/01/16 16:39 09/01/16 16:39 09/01/16 16:39 - Labs Labs: 08/29/16 07:36 08/29/16 07:36 PT 11.1 SECONDS (9.7-12.2) 08/25/16 08:00 INR 1.0 08/25/16 08:00 Assessment and Plan (1) Alcohol withdrawal Status: Acute Attending/Attestation - Attestation I have personally seen and examined this patient.: Yes I have fully participated in the care of the patient.: Yes I have reviewed all pertinent clinical information, including history, physical exam and plan: Yes Notes (Text): 10/06/16 04:00 pt feeling better worried assurance given continue plavix and asa
--- NOTE | 2016-08-26 19:23 | VASCLAB ---
PROCEDURE: Lower Extremity Venous Duplex Exam. HISTORY: Ischemic stroke PRIORS: None. TECHNIQUE: Bilateral common femoral, femoral, popliteal and posterior tibial, peroneal and great saphenous veins were evaluated. Flow was assessed with color Doppler, compressibility, assessment of phasic flow and augmentation response. Report prepared by GINETTE Rivas, RVT FINDINGS: RIGHT: 1. Common Femoral Vein: 1.1. Compressibility - Fully compressible: Thrombus - None : Flow - Phasic: Augmentation -Normal: Reflux - None. 2. Femoral Vein: 2.1. Compressibility - Fully compressible: Thrombus - None : Flow - Phasic: Augmentation -Normal: Reflux - None. 3. Popliteal Vein: 3.1. Compressibility - Fully compressible: Thrombus - None : Flow - Phasic: Augmentation -Normal: Reflux - None. 4. Posterior Tibial Vein: 4.1. Compressibility - Fully compressible: Thrombus - None: Flow - Phasic: Augmentation -Normal: Reflux - None. 5. Peroneal Vein: 5.1. Compressibility - Fully compressible: Thrombus - None: Flow - Phasic: Augmentation -Normal: Reflux - None. 6. Great Saphenous Vein: 6.1. Compressibility - Fully compressible: Thrombus - None: Flow - Phasic: Augmentation - Normal: Reflux - None. LEFT: 1. Common Femoral Vein: 1.1. Compressibility - Fully compressible: Thrombus - None: Flow - Phasic: Augmentation -Normal: Reflux - None. 2. Femoral Vein: 2.1. Compressibility - Fully compressible: Thrombus - None: Flow - Phasic: Augmentation -Normal: Reflux - None. 3. Popliteal Vein: 3.1. Compressibility - Fully compressible: Thrombus - None : Flow - Phasic: Augmentation -Normal: Reflux - None. 4. Posterior Tibial Vein: 4.1. Compressibility - Fully compressible: Thrombus - None: Flow - Phasic: Augmentation -Normal: Reflux - None. 5. Peroneal Vein: 5.1. Compressibility - Fully compressible: Thrombus - None: Flow - Phasic: Augmentation -Normal: Reflux - None. 6. Great Saphenous Vein: 6.1. Compressibility - Fully compressible: Thrombus - None: Flow - Phasic: Augmentation - Normal: Reflux - None. OTHER FINDINGS: Right: None significant. Left: None significant. IMPRESSION: Right: No evidence of deep or superficial vein thrombosis of the right lower extremity. Normal valve function noted of the right side. Left: No evidence of deep or superficial vein thrombosis of the left lower extremity. Normal valve function noted of the left side.
--- NOTE | 2016-08-26 19:24 | VASCLAB ---
PROCEDURE: HISTORY: ischemic stroke COMPARISON: None available. TECHNIQUE: Grayscale and duplex Doppler evaluation of the cervical carotid and vertebral arteries were performed. The common carotid, carotid bifurcations and cervical Internal Carotid Artery (ICA) and proximal External Carotid Artery (ECA) were evaluated. The vertebral arteries were evaluated for gross patency and flow direction. Report prepared by Abdoulaye Flores, BS, RVT FINDINGS: RIGHT CAROTID ARTERIES: 1. Common Carotid Artery: No significant focal plaque formation of the right common carotid artery. Maximum Peak Systolic velocity: 63 cm/sec: End-diastolic velocity 34 cm/sec. 2. Carotid Bifurcation: No significant focal plaque formation. Maximum Peak Systolic velocity: 61 cm/sec: End-diastolic velocity 22 cm/sec. 3. Internal Carotid Artery: Minimal plaque formation of the right proximal ICA which does not result in hemodynamically significant stenosis. Plaque description: Homogeneous 3.1. Proximal Segment: Peak systolic velocity 63 cm/sec: End-diastolic velocity 34 cm/sec - % stenosis 0-15% 3.2. Middle Segment: Peak systolic velocity 57 cm/sec: End-diastolic velocity 21 cm/sec - % stenosis 0-15% 3.3. Distal Segment: Peak systolic velocity 113 cm/sec: End-diastolic velocity 39 cm/sec - % stenosis 0-15% 4. External Carotid Artery: No significant focal plaque formation. Peak systolic velocity 84 cm/sec 5. ICA/CCA Ratio: 1.4 LEFT CAROTID ARTERIES: 1. Common Carotid Artery: No significant focal plaque formation of the left common carotid artery. Maximum Peak Systolic velocity: 89 cm/sec: End-diastolic velocity 28 cm/sec. 2. Carotid Bifurcation: No significant focal plaque formation. Maximum Peak Systolic velocity: 55 cm/sec: End-diastolic velocity 21 cm/sec. 3. Internal Carotid Artery: Minimal plaque formation of the left proximal ICA which does not result in hemodynamically significant stenosis. Plaque description: Homogeneous 3.1. Proximal Segment: Peak systolic velocity 80 cm/sec: End-diastolic velocity 32 cm/sec - % stenosis 0-15% 3.2. Middle Segment: Peak systolic velocity 77 cm/sec: End-diastolic velocity 37 cm/sec - % stenosis 0-15% 3.3. Distal Segment: Peak systolic velocity 81 cm/sec: End-diastolic velocity 38 cm/sec - % stenosis 0-15% 4. External Carotid Artery: No significant focal plaque formation. Peak systolic velocity 120 cm/sec 5. ICA/CCA Ratio: 0.9 VERTEBRAL ARTERIES: 1. Right Vertebral Artery: The right vertebral artery flow direction is antegrade. 2. Left Vertebral Artery: The left vertebral artery flow direction is antegrade. OTHER FINDINGS: 1. Right Brachial Blood pressure: 136 mmHg. 2. Left Brachial Blood pressure: 130 mmHg. IMPRESSION: RIGHT: Duplex scan does not suggest hemodynamically significant stenosis of the right extracranial carotid arteries. LEFT: Duplex scan does not suggest hemodynamically significant stenosis of the left extracranial carotid arteries.
[2016-08-26] MEDS: cefTRIAXone 2 GM in Sodium Chloride 0.9% 100 ML IVPB SCH (21:00)
[2016-08-27 06:43] LABS: BASO # 0.1 K/uL (0.0-0.2); BASO % 1.9 % (0.0-2.0); EOS # 0.1 K/uL (0.0-0.7); EOS % 1.8 % (0.0-4.0); HEMATOCRIT 33.1 % (34.0-47.0); LYMPH % 39.9 % (20.0-40.0); MEAN CORPUSCULAR HEMOGLOBIN 32.3 pg (27.0-31.0); MEAN PLATELET VOLUME 8.4 fL (7.2-11.7); MONO # 0.8 K/uL (0.0-0.8); MONO % 15.6 % (0.0-10.0); NRBC % 0.1 % (0.0-2.0); RED CELL DISTRIBUTION WIDTH 14.3 % (11.5-14.5); WHITE BLOOD COUNT 4.9 K/uL (4.8-10.8)
[2016-08-27 06:45] LABS: CHLORIDE 101 mmol/L (98-107)
[2016-08-27 06:46] LABS: POTASSIUM 4.1 mmol/L (3.6-5.2); SODIUM 137 mmol/L (132-148)
[2016-08-27 06:48] LABS: ALB/GLOB RATIO 1.1 (1.0-2.1); ALKALINE PHOSPHATASE 42 U/L (38-126); ALT/SGPT 39 U/L (9-52); AST/SGOT 41 U/L (14-36); BILIRUBIN,TOTAL 0.4 mg/dL (0.2-1.3); BLOOD UREA NITROGEN 9 mg/dL (7-17); CARBON DIOXIDE 28 mmol/L (22-30); GFR AFRICAN-AMERICAN > 60; GLUCOSE,RANDOM 82 mg/dL (65-105); TOTAL PROTEIN 6.3 g/dL (6.3-8.3)
[2016-08-27 06:49] LABS: CALCIUM 8.1 mg/dl (8.6-10.4); MAGNESIUM 2.1 mg/dL (1.6-2.3)
[2016-08-27] MEDS: Multiple Vitamins Tab PO SCH (10:00)
[2016-08-27] MEDS: Divalproex 250 mg DR Tab PO SCH ×2 (10:00→17:18)
[2016-08-27] MEDS: Sodium Chloride 0.9% 1,000 ML IV SCH ×2 (10:01→18:35)
[2016-08-27] MEDS: Nystatin 100,000 Units/ml Oral Susp 5 ml UD PO SCH ×4 (10:01→22:10)
--- NOTE | 2016-08-27 10:55 | CARD ---
APPROVED REPORT EXAM: Two-dimensional and M-mode echocardiogram with Doppler and color Doppler. Other Information Quality : AverageRhythm : NSR INDICATION STROKE, HYPOKALEMIA ALCOHOL WITHDRAWALS M-Mode DIMENSIONS RVDd1.86 (2.1-3.2cm)Left Atrium (MM)4.00 (2.5-4.0cm) IVSd0.90 (0.7-1.1cm)Aortic Root2.73 (2.2-3.7cm) LVDd4.68 (4.0-5.6cm)Aortic Cusp Exc.1.43 (1.5-2.0cm) PWd0.70 (0.7-1.1cm)FS (%) 36 % LVDs2.99 (2.0-3.8cm)LVEF (%)66 (>50%) Mitral Valve MV E Bsdeluvd07.8cm/sMV A Vaylffau19.5cm/sE/A ratio0.8 TDI E/Lateral E'0.0E/Medial E'0.0 Tricuspid Valve TR Peak Xpyqrycn200cb/sTR Peak Gr.[id number] LEFT VENTRICLE The left ventricle is normal size. There is normal left ventricular wall thickness. The left ventricular function is normal. The left ventricular ejection fraction is within the normal range. No regional wall motion abnormalities noted. Transmitral Doppler flow pattern is Grade I-abnormal relaxation pattern. No left ventricle thrombus noted on this study. There is no ventricular septal defect visualized. There is no left ventricular aneurysm. There is no mass noted in the left ventricle. RIGHT VENTRICLE The right ventricle is normal size. There is normal right ventricular wall thickness. The right ventricular systolic function is normal. ATRIA The left atrium is borderline dilated. The right atrium size is normal. The interatrial septum is intact with no evidence for an atrial septal defect. AORTIC VALVE The aortic valve is normal in structure and function. No aortic regurgitation is present. There is no aortic valvular stenosis. There is no aortic valvular vegetation. MITRAL VALVE The mitral valve is normal in structure and function. There is no evidence of mitral valve prolapse. There is no mitral valve stenosis. Mitral regurgitation is trace. TRICUSPID VALVE The tricuspid valve is normal in structure and function. There is trace tricuspid regurgitation. There is no tricuspid valve prolapse or vegetation. There is no tricuspid valve stenosis. PULMONIC VALVE The pulmonary valve is normal in structure and function. There is no pulmonic valvular regurgitation. There is no pulmonic valvular stenosis. GREAT VESSELS The aortic root is normal in size. The ascending aorta is normal in size. The pulmonary artery is normal. The IVC is normal in size and collapses >50% with inspiration. PERICARDIAL EFFUSION The pericardium appears normal. There is no pleural effusion. <Conclusion> The left ventricular ejection fraction is within the normal range. Transmitral Doppler flow pattern is Grade I-abnormal relaxation pattern. The left atrium is borderline dilated. Mitral regurgitation is trace. There is trace tricuspid regurgitation.
--- NOTE | 2016-08-27 10:56 | CON ---
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 PAST MEDICAL HISTORY: She denies any history of diabetes. She denied history of alcohol abuse even though she had a seizure episode, and it is clearly written in the report that she had a history of t his problem. Nonetheless, she said that she has had problems with her legs, and she has developed bl otches, particularly over the thigh and upper calf. No history of drug abuse, no history of smoking. FAMILY HISTORY: Highly significant for peripheral vascular disease. Her mother had peripheral vascu lar disease and had to have multiple interventions including a bypass, and she had multiple revisions as time went by. SOCIAL HISTORY, REVIEW OF SYSTEMS, AND FAMILY HISTORY: Otherwise unremarkable. REVIEW OF SYSTEMS: A 12-system review was carried out, and negative apart from psychiatric issues an d anxiety and stuff like that. She denied everything else, but a complete system review was carried out. PHYSICAL EXAMINATION: The patient is 5 feet 3 inches, 125 pounds. She has a BMI of 22.1 kg/m2. She looks a little worn out. The blotches are mostly faded on her legs, and she has easily palpable per ipheral pulses. The rest of her physical examination is unremarkable. There is a small scar from C- section in the transverse fashion above the pubic bone. LABORATORY DATA: Reviewed, and particularly the screens for different tests. Her hemoglobin was sli ghtly low at 10 and 33, but the rest of her blood tests were all basically okay. IMPRESSION: My impression is the patient had an episode of livedo reticularis in a woman who has a s candice family history of peripheral vascular disease. At this point, she should be monitored. There are no plans for any surgical intervention. Doppler tests purportedly have been ordered and are pen ding, but do not appear to require any intervention. I will review this, and a venous duplex scan wa s negative. PLAN: Simple monitoring. I have no plans for any surgical intervention. Karri De La Fuente Jr., MD cc: [id number] TT: 08/27/2016 09:55:51 Confirmation # [id number] Dictation # [id number]
--- NOTE | 2016-08-27 11:34 | CP.PCM.PN ---
<Ck Jnug - Last Filed: 08/27/16 11:29> Subjective - Date & Time of Evaluation Date of Evaluation: 08/27/16 Time of Evaluation: 11:29 - Subjective Subjective: Cardiology Progress Note Dr. Clark (covering for Dr. Juan) Patient seen and examined at bedside. No acute distress. No acute events overnight. Nursing staff reports no issues. The patient denies all cardiopulmonary symptoms this morning. 12 point review of symptoms preformed and returned negative for all acute complaints. Objective - Vital Signs/Intake and Output Vital Signs (last 24 hours): Temp Pulse Resp BP Pulse Ox 97.5 F L 64 20 97/81 L 99 08/27/16 07:20 08/27/16 08:03 08/27/16 07:20 08/27/16 07:20 08/27/16 07:20 Intake and Output: 08/27/16 08/27/16 06:59 18:59 Intake Total 2019 Balance 2020 - Medications Medications: Current Medications Aspirin (Ecotrin) 81 mg PO DAILY [facility] Last Admin: 08/27/16 10:00 Dose: 81 mg Clopidogrel Bisulfate (Plavix) 75 mg PO DAILY [facility] Last Admin: 08/27/16 10:01 Dose: 75 mg Divalproex Sodium (Depakote Dr) 250 mg PO BID [facility] Last Admin: 08/27/16 10:00 Dose: 250 mg Famotidine (Pepcid) 20 mg PO BID [facility] Last Admin: 08/27/16 10:00 Dose: 20 mg Folic Acid (Folic Acid) 1 mg PO DAILY [facility] Last Admin: 08/27/16 10:00 Dose: 1 mg Gabapentin (Neurontin) 100 mg PO TID [facility] Last Admin: 08/27/16 10:00 Dose: 100 mg Hydroxyzine HCl (Atarax) 25 mg PO Q6 PRN PRN Reason: Anxiety Last Admin: 08/26/16 10:17 Dose: 25 mg Ceftriaxone Sodium 2 gm/ (Sodium Chloride) 100 mls @ 100 mls/hr IVPB Q24H [facility] Last Admin: 08/26/16 21:00 Dose: 100 mls/hr Sodium Chloride (Sodium Chloride 0.9%) 1,000 mls @ 60 mls/hr IV .[id number] [facility] Last Admin: 08/27/16 10:01 Dose: 60 mls/hr Vancomycin/Sodium Chloride (Vancocin) 1 gm in 200 mls @ 133.333 mls/hr IVPB Q24H [facility] Stop: 08/31/16 13:01 Last Admin: 08/26/16 14:11 Dose: 133.333 mls/hr Lorazepam (Ativan) 1 mg IVP Q6H PRN PRN Reason: Anxiety Last Admin: 08/22/16 12:04 Dose: 1 mg Multivitamins (Hexavitamin) 1 tab PO DAILY [facility] Last Admin: 08/27/16 10:00 Dose: 1 tab Nystatin (Nystatin Oral Susp) 5 ml PO QID [facility] Last Admin: 08/27/16 10:01 Dose: 5 ml Rosuvastatin Calcium (Crestor) 10 mg PO HS [facility] Last Admin: 08/26/16 22:22 Dose: 10 mg Thiamine HCl (Vitamin B1 Tab) 100 mg PO DAILY [facility] Last Admin: 08/27/16 10:03 Dose: 100 mg Trazodone HCl (Desyrel) 50 mg PO [facility] Last Admin: 08/26/16 22:22 Dose: 50 mg - Labs Labs: 08/27/16 06:25 08/27/16 06:25 PT 11.1 SECONDS (9.7-12.2) 08/25/16 08:00 INR 1.0 08/25/16 08:00 - Additional Findings Additional findings: - Constitutional Appears: Older Than Stated Age - Head Exam Head Exam: ATRAUMATIC, NORMAL INSPECTION, NORMOCEPHALIC - Eye Exam Eye Exam: EOMI, Normal appearance - ENT Exam ENT Exam: Mucous Membranes Moist, Normal Exam - Neck Exam Neck Exam: Full ROM, Normal Inspection. absent: Lymphadenopathy, Tenderness - Respiratory Exam Respiratory Exam: Clear to Ausculation Bilateral, NORMAL BREATHING PATTERN. absent: Rales, Rhonchi, Wheezes, Respiratory Distress, Stridor - Cardiovascular Exam Cardiovascular Exam: REGULAR RHYTHM, RRR, +S1, +S2. absent: Diastolic murmur, Murmur - GI/Abdominal Exam GI & Abdominal Exam: Soft, Normal Bowel Sounds. absent: Distended, Firm, Guarding, Rigid, Tenderness - Extremities Exam Extremities Exam: Full ROM, Normal Capillary Refill, Normal Inspection. absent : Joint Swelling, Pedal Edema - Neurological Exam Neurological Exam: Alert, Awake, CN II-XII Intact, Normal Gait, Oriented x3 - Skin Skin Exam: Dry, Intact, Normal Color, Warm Assessment and Plan (1) Thickened mitral leaflet Assessment & Plan: potentially 2/2 to Endocarditis - Mccarthy Criteria: 1major, 1 minor- negative (unlikely endocarditis) (2major, 1 major + 3 minor, 5 minor = endocarditis is likely) : Major Criteria- 1 (inconclusive ANTONIO) 1.) Blood Cultures- negative 2.) ANTONIO inconclusive: No New Regurgitant Murmur, Thickened Mitral Valve : Minor Criteria- 1 (possibly related stroke) 1.) Denies IVDU 2.) Afebrile 3.) Vascular Phenomena- Cranial Infarct, unknown if related 4.) No immunologic phenomena (Osler Node, Morrissey Spots, ect.) 5.) Blood Cultures- negative - patient receiving IV vancomycin 1g q24 - no leukocytosis Continue: - Aspirin 81mg PO daily - Plavix 75mg PO Daily - Crestor 10mg PO HS Hemodynamically Stable 08/26/16 Carotid Doppler- mild disease b/l - official read pending 08/25/16 ANTONIO- normal left ventricular systolic function with normal EF (66% on echo), no thrombus in left atrial appendage, normal aortic valve, Thickening of Anterior Mitral Valve Leaflet (cannot rule out endocarditis) 08/22/16 Brain MRI- Two adjacent foci of diffusion restriction seen at the left caudate head and adjacent left putamen demonstrate no enhancement or surrounding vasogenic edema. Findings suspicious for acute infarcts. No evidence of enhancing mass lesion in the brain. No evidence of mass effect or midline shift. 08/22/16 CTA Head/Neck- No evidence of hemodynamically significant stenosis in the carotid arteries at the neck or in the intracranial arteries. No evidence of aneurysm or acute pathology 08/21/[address]- No evidence of acute intracranial hemorrhage or acute pathology in the brain. Case Discussed with Dr. Amber Jung PGY1 Status: Acute (2) Ischemic stroke Status: Acute <Esther Clark - Last Filed: 10/06/16 03:59> Objective - Vital Signs/Intake and Output Vital Signs (last 24 hours): Temp Pulse Resp BP Pulse Ox 98 F 69 20 125/78 100 09/01/16 16:39 09/01/16 16:39 09/01/16 16:39 09/01/16 16:39 09/01/16 16:39 - Labs Labs: 08/29/16 07:36 08/29/16 07:36 PT 11.1 SECONDS (9.7-12.2) 08/25/16 08:00 INR 1.0 08/25/16 08:00 Assessment and Plan (1) Alcohol withdrawal Status: Acute Attending/Attestation - Attestation I have personally seen and examined this patient.: Yes I have fully participated in the care of the patient.: Yes I have reviewed all pertinent clinical information, including history, physical exam and plan: Yes Notes (Text): 10/06/16 03:59 blood cultures negative continue plavix and crestor
[2016-08-27] MEDS: Vancomycin 1 gm/NS 200 ml 1 GM/200 ML BAG IVPB SCH (13:29)
--- NOTE | 2016-08-27 14:37 | CP.PCM.PN ---
Subjective - Date & Time of Evaluation Date of Evaluation: 08/27/16 Time of Evaluation: 10:15 - Subjective Subjective: Medicine Progress Note Patient seen and examined. Patient states that she feels well today. She was ambulating out of bed without difficulty. Patient complains that she had mottled skin on her legs that she noticed yesterday. The skin changes improved today but were still present. Denies rash, itching, bleeding, swelling, or pain in the legs. Patient's questions were answered. Denies fever, chills, nausea, vomiting, diarrhea, abdominal pain, chest pain and shortness of breath. Objective - Vital Signs/Intake and Output Vital Signs (last 24 hours): Temp Pulse Resp BP Pulse Ox 97.5 F L 64 20 97/81 L 99 08/27/16 07:20 08/27/16 08:03 08/27/16 07:20 08/27/16 07:20 08/27/16 07:20 Intake and Output: 08/27/16 08/27/16 06:59 18:59 Intake Total 2019 Balance 2020 - Medications Medications: Current Medications Aspirin (Ecotrin) 81 mg PO DAILY [facility] Last Admin: 08/27/16 10:00 Dose: 81 mg Clopidogrel Bisulfate (Plavix) 75 mg PO DAILY [facility] Last Admin: 08/27/16 10:01 Dose: 75 mg Divalproex Sodium (Depakote Dr) 250 mg PO BID [facility] Last Admin: 08/27/16 10:00 Dose: 250 mg Famotidine (Pepcid) 20 mg PO BID [facility] Last Admin: 08/27/16 10:00 Dose: 20 mg Folic Acid (Folic Acid) 1 mg PO DAILY [facility] Last Admin: 08/27/16 10:00 Dose: 1 mg Gabapentin (Neurontin) 100 mg PO TID [facility] Last Admin: 08/27/16 13:28 Dose: 100 mg Hydroxyzine HCl (Atarax) 25 mg PO Q6 PRN PRN Reason: Anxiety Last Admin: 08/26/16 10:17 Dose: 25 mg Ceftriaxone Sodium 2 gm/ (Sodium Chloride) 100 mls @ 100 mls/hr IVPB Q24H [facility] Last Admin: 08/26/16 21:00 Dose: 100 mls/hr Sodium Chloride (Sodium Chloride 0.9%) 1,000 mls @ 60 mls/hr IV .[id number] [facility] Last Admin: 08/27/16 10:01 Dose: 60 mls/hr Vancomycin/Sodium Chloride (Vancocin) 1 gm in 200 mls @ 133.333 mls/hr IVPB Q24H [facility] Stop: 08/31/16 13:01 Last Admin: 08/27/16 13:29 Dose: 133.333 mls/hr Lorazepam (Ativan) 1 mg IVP Q6H PRN PRN Reason: Anxiety Last Admin: 08/22/16 12:04 Dose: 1 mg Multivitamins (Hexavitamin) 1 tab PO DAILY [facility] Last Admin: 08/27/16 10:00 Dose: 1 tab Nystatin (Nystatin Oral Susp) 5 ml PO QID [facility] Last Admin: 08/27/16 13:28 Dose: 5 ml Rosuvastatin Calcium (Crestor) 10 mg PO [facility] Last Admin: 08/26/16 22:22 Dose: 10 mg Thiamine HCl (Vitamin B1 Tab) 100 mg PO DAILY [facility] Last Admin: 08/27/16 10:03 Dose: 100 mg Trazodone HCl (Desyrel) 50 mg PO [facility] Last Admin: 08/26/16 22:22 Dose: 50 mg - Labs Labs: 08/27/16 06:25 08/27/16 06:25 PT 11.1 SECONDS (9.7-12.2) 08/25/16 08:00 INR 1.0 08/25/16 08:00 - Additional Findings Additional findings: - Constitutional Appears: Non-toxic, No Acute Distress - Head Exam Head Exam: ATRAUMATIC, NORMOCEPHALIC - Eye Exam Eye Exam: EOMI, Normal appearance - ENT Exam ENT Exam: Normal Exam - Respiratory Exam Respiratory Exam: Clear to Ausculation Bilateral, NORMAL BREATHING PATTERN. absent: Rhonchi, Wheezes, Respiratory Distress - Cardiovascular Exam Cardiovascular Exam: REGULAR RHYTHM, +S1, +S2 - GI/Abdominal Exam GI & Abdominal Exam: Soft, Normal Bowel Sounds - Neurological Exam Neurological Exam: Alert, Awake, Oriented x3 - Psychiatric Exam Psychiatric exam: Normal Affect, Normal Mood - Skin Skin Exam: Dry, Intact, Normal Color, Warm Livedo reticularis bilateral LE Assessment and Plan - Assessment and Plan (Free Text) Assessment: (1) Ischemic stroke Neuro consult placed- Dr. Skinner MRI of the brain showed a left caudate and basal ganglia acute and subacute ischemic stroke. As per Dr. Skinner: * Start aspirin 81 mg daily and Plavix 75 mg daily for 21 days per the [facility] protocol and after 21 days continue only aspirin 81 mg indefinitely. Plavix started on 08/22/16. * Seroquel 25 mg QHS for hallucinations. Avoid benzodiazepines or opiates. Cardio- Dr. Juan consulted for cardiac work-up for dysrrhythmia or other cardio- embolic causes. Echocardiogram with bubble study done today. As discussed with Dr. Juan, patient with thickened heart valve. Cannot rule out endocarditis (see workup below) f/u carotid dopplers f/u venous dopplers Continue Crestor 10 mg PO HS, ASA 81 mg PO daily and Plavix for 21 days. PT/OT Speech Therapy Fall risk protocol (2) Thickened Mitral Valve Echocardiogram with bubble study done. As discussed with Dr. Juan, patient with thickened heart valve. Cannot rule out endocarditis (see workup below). ID consult- Dr. Mattson-help appreciated. Started Ceftriaxone 2gm IV q24h on 08/[address] Mattson, will treat imperically. f/u blood cultures X2. (3) Fall Assessment & Plan: Head CT this negative for IC bleed. UDS negative Neuro consult placed- Dr. Skinner EEG done D/C Depakote and Gabapentin as patient's symptoms likely 2/2 stroke. UDS negative PT/OT Status: Acute Status: Acute (4) Alcohol withdrawal Assessment & Plan: Psych consult placed- Dr. Sweeney- loc appreciated. Ativan PRN Thiamine 100 mg PO daily MV PO daily Folic Acid 1 mg PO daily Seizure, fall and aspiration precautions. Status: Acute (5) Bipolar 1 disorder most recent episode manic moderate Psych consult placed- Dr. Sweeney- loc appreciated. CBT Psychoeducation Supportive therapy, group therapy, individual therapy Depakote 250 mg by mouth BID Neurontin 100 mg by mouth 3 times a day Trazodone 50 mg by mouth daily at bedtime (6) Hypokalemia Assessment & Plan: K+ 4.1 today. f/u CMP in the AM Status: Acute (7) Livedo Reticularis Consulted Dr De La Fuente- no acute intervention, continue to monitor LE Dopplers negative Monitor (8) Prophylactic measure Assessment & Plan: Pepcid 2mg PO BID SCDs Status: Acute all management as per Dr. Lemus.
--- NOTE | 2016-08-27 15:46 | CP.PCM.PN ---
Subjective - Date & Time of Evaluation Date of Evaluation: 08/27/16 Time of Evaluation: 10:00 - Subjective Subjective: all cultures neg thuis far procalcitonin neg await cardio follow up Objective - Vital Signs/Intake and Output Vital Signs (last 24 hours): Temp Pulse Resp BP Pulse Ox 97.5 F L 64 20 97/81 L 99 08/27/16 07:20 08/27/16 08:03 08/27/16 07:20 08/27/16 07:20 08/27/16 07:20 Intake and Output: 08/27/16 08/27/16 06:59 18:59 Intake Total 2019 Balance 2019 - Medications Medications: Current Medications Aspirin (Ecotrin) 81 mg PO DAILY [facility] Last Admin: 08/27/16 10:00 Dose: 81 mg Clopidogrel Bisulfate (Plavix) 75 mg PO DAILY [facility] Last Admin: 08/27/16 10:01 Dose: 75 mg Divalproex Sodium (Depakote Dr) 250 mg PO BID [facility] Last Admin: 08/27/16 10:00 Dose: 250 mg Famotidine (Pepcid) 20 mg PO BID [facility] Last Admin: 08/27/16 10:00 Dose: 20 mg Folic Acid (Folic Acid) 1 mg PO DAILY [facility] Last Admin: 08/27/16 10:00 Dose: 1 mg Gabapentin (Neurontin) 100 mg PO TID [facility] Last Admin: 08/27/16 13:28 Dose: 100 mg Hydroxyzine HCl (Atarax) 25 mg PO Q6 PRN PRN Reason: Anxiety Last Admin: 08/26/16 10:17 Dose: 25 mg Ceftriaxone Sodium 2 gm/ (Sodium Chloride) 100 mls @ 100 mls/hr IVPB Q24H [facility] Last Admin: 08/26/16 21:00 Dose: 100 mls/hr Sodium Chloride (Sodium Chloride 0.9%) 1,000 mls @ 60 mls/hr IV .[id number] [facility] Last Admin: 08/27/16 10:01 Dose: 60 mls/hr Vancomycin/Sodium Chloride (Vancocin) 1 gm in 200 mls @ 133.333 mls/hr IVPB Q24H [facility] Stop: 08/31/16 13:01 Last Admin: 08/27/16 13:29 Dose: 133.333 mls/hr Lorazepam (Ativan) 1 mg IVP Q6H PRN PRN Reason: Anxiety Last Admin: 08/22/16 12:04 Dose: 1 mg Multivitamins (Hexavitamin) 1 tab PO DAILY [facility] Last Admin: 08/27/16 10:00 Dose: 1 tab Nystatin (Nystatin Oral Susp) 5 ml PO QID [facility] Last Admin: 08/27/16 13:28 Dose: 5 ml Rosuvastatin Calcium (Crestor) 10 mg PO HS [facility] Last Admin: 08/26/16 22:22 Dose: 10 mg Thiamine HCl (Vitamin B1 Tab) 100 mg PO DAILY [facility] Last Admin: 08/27/16 10:03 Dose: 100 mg Trazodone HCl (Desyrel) 50 mg PO HS [facility] Last Admin: 08/26/16 22:22 Dose: 50 mg - Labs Labs: 08/27/16 06:25 08/27/16 06:25 PT 11.1 SECONDS (9.7-12.2) 08/25/16 08:00 INR 1.0 08/25/16 08:00 - Constitutional Appears: Non-toxic, Chronically Ill - Head Exam Head Exam: NORMOCEPHALIC - Eye Exam Eye Exam: absent: Scleral icterus - Neck Exam Neck Exam: absent: Lymphadenopathy - Respiratory Exam Respiratory Exam: Decreased Breath Sounds, Clear to Ausculation Bilateral - Cardiovascular Exam Cardiovascular Exam: REGULAR RHYTHM - GI/Abdominal Exam GI & Abdominal Exam: Distended, Soft Assessment and Plan - Assessment and Plan (Free Text) Plan: s/p cva\ r/o endocarditis
[2016-08-27] MEDS: cefTRIAXone 2 GM in Sodium Chloride 0.9% 100 ML IVPB SCH (20:19)
[2016-08-28] MEDS: guaiFENesin 600 mg ER Tab PO SCH ×3 (01:46→18:06)
[2016-08-28 07:33] LABS: BASO # 0.1 K/uL (0.0-0.2); BASO % 2.6 % (0.0-2.0); EOS # 0.1 K/uL (0.0-0.7); EOS % 1.3 % (0.0-4.0); HEMATOCRIT 34.3 % (34.0-47.0); LYMPH % 24.3 % (20.0-40.0); MEAN CELL VOLUME 98.3 fL (81.0-99.0); MEAN CORPUSCULAR HEMOGLOBIN 32.1 pg (27.0-31.0); MEAN CORPUSCULAR HGB CONC 32.7 g/dL (33.0-37.0); MEAN PLATELET VOLUME 8.5 fL (7.2-11.7); MONO # 0.8 K/uL (0.0-0.8); MONO % 20.8 % (0.0-10.0); PLATELET COUNT 215 K/uL (130-400)
[2016-08-28 07:45] LABS: CHLORIDE 101 mmol/L (98-107); POTASSIUM 4.2 mmol/L (3.6-5.2); SODIUM 138 mmol/L (132-148)
[2016-08-28 07:47] LABS: ALB/GLOB RATIO 1.1 (1.0-2.1); ALKALINE PHOSPHATASE 46 U/L (38-126); AST/SGOT 58 U/L (14-36); BILIRUBIN,TOTAL 0.5 mg/dL (0.2-1.3); BLOOD UREA NITROGEN 7 mg/dL (7-17); CARBON DIOXIDE 29 mmol/L (22-30); GFR AFRICAN-AMERICAN > 60; TOTAL PROTEIN 6.7 g/dL (6.3-8.3)
[2016-08-28 07:48] LABS: ALT/SGPT 41 U/L (9-52); CALCIUM 8.6 mg/dl (8.6-10.4); GLUCOSE,RANDOM 83 mg/dL (65-105); MAGNESIUM 2.2 mg/dL (1.6-2.3)
[2016-08-28] MEDS: Divalproex 250 mg DR Tab PO SCH ×2 (09:12→18:06)
[2016-08-28] MEDS: Nystatin 100,000 Units/ml Oral Susp 5 ml UD PO SCH ×4 (09:12→21:30)
[2016-08-28] MEDS: Multiple Vitamins Tab PO SCH (09:12)
--- NOTE | 2016-08-28 10:14 | CP.PCM.PN ---
<Ck Jung - Last Filed: 08/28/16 11:55> Subjective - Date & Time of Evaluation Date of Evaluation: 08/28/16 Time of Evaluation: 10:10 - Subjective Subjective: Cardiology Progress Note Dr. Clark (covering for Dr. Juan) Patient seen and examined at bedside. No acute distress. No acute events overnight. Nursing staff reports no issues. The patient denies all cardiopulmonary symptoms this morning. 12 point review of symptoms preformed and returned negative for all acute complaints. Objective - Vital Signs/Intake and Output Vital Signs (last 24 hours): Temp Pulse Resp BP Pulse Ox 99.3 F 93 H 20 96/61 L 100 08/28/16 07:27 08/28/16 08:00 08/28/16 07:27 08/28/16 07:27 08/28/16 07:27 Intake and Output: 08/28/16 08/28/16 06:59 18:59 Intake Total 1440 Balance 1440 - Medications Medications: Current Medications Aspirin (Ecotrin) 81 mg PO DAILY [facility] Last Admin: 08/28/16 09:12 Dose: 81 mg Clopidogrel Bisulfate (Plavix) 75 mg PO DAILY [facility] Last Admin: 08/28/16 09:12 Dose: 75 mg Divalproex Sodium (Depakote Dr) 250 mg PO BID [facility] Last Admin: 08/28/16 09:12 Dose: 250 mg Famotidine (Pepcid) 20 mg PO BID [facility] Last Admin: 08/28/16 09:12 Dose: 20 mg Folic Acid (Folic Acid) 1 mg PO DAILY [facility] Last Admin: 08/28/16 09:12 Dose: 1 mg Gabapentin (Neurontin) 100 mg PO TID [facility] Last Admin: 08/28/16 09:12 Dose: 100 mg Guaifenesin (Mucinex La) 600 mg PO BID [facility] Stop: 08/29/16 10:01 Last Admin: 08/28/16 09:12 Dose: 600 mg Hydroxyzine HCl (Atarax) 25 mg PO Q6 PRN PRN Reason: Anxiety Last Admin: 08/27/16 17:19 Dose: 25 mg Ceftriaxone Sodium 2 gm/ (Sodium Chloride) 100 mls @ 100 mls/hr IVPB Q24H [facility] Last Admin: 08/27/16 20:19 Dose: 100 mls/hr Sodium Chloride (Sodium Chloride 0.9%) 1,000 mls @ 60 mls/hr IV .[id number] [facility] Last Admin: 08/27/16 18:35 Dose: Not Given Vancomycin/Sodium Chloride (Vancocin) 1 gm in 200 mls @ 133.333 mls/hr IVPB Q24H [facility] Stop: 08/31/16 13:01 Last Admin: 08/27/16 13:29 Dose: 133.333 mls/hr Lorazepam (Ativan) 1 mg IVP Q6H PRN PRN Reason: Anxiety Last Admin: 08/22/16 12:04 Dose: 1 mg Multivitamins (Hexavitamin) 1 tab PO DAILY [facility] Last Admin: 08/28/16 09:12 Dose: 1 tab Nystatin (Nystatin Oral Susp) 5 ml PO QID [facility] Last Admin: 08/28/16 09:12 Dose: 5 ml Rosuvastatin Calcium (Crestor) 10 mg PO [facility] Last Admin: 08/27/16 22:10 Dose: 10 mg Thiamine HCl (Vitamin B1 Tab) 100 mg PO DAILY [facility] Last Admin: 08/28/16 09:12 Dose: 100 mg Trazodone HCl (Desyrel) 50 mg PO [facility] Last Admin: 08/27/16 22:10 Dose: 50 mg - Labs Labs: 08/28/16 07:23 08/28/16 07:23 PT 11.1 SECONDS (9.7-12.2) 08/25/16 08:00 INR 1.0 08/25/16 08:00 - Additional Findings Additional findings: - Constitutional Appears: Older Than Stated Age - Head Exam Head Exam: ATRAUMATIC, NORMAL INSPECTION, NORMOCEPHALIC - Eye Exam Eye Exam: EOMI, Normal appearance - ENT Exam ENT Exam: Mucous Membranes Moist, Normal Exam - Neck Exam Neck Exam: Full ROM, Normal Inspection. absent: Lymphadenopathy, Tenderness - Respiratory Exam Respiratory Exam: Clear to Ausculation Bilateral, NORMAL BREATHING PATTERN. absent: Rales, Rhonchi, Wheezes, Respiratory Distress, Stridor - Cardiovascular Exam Cardiovascular Exam: REGULAR RHYTHM, RRR, +S1, +S2. absent: Diastolic murmur, Murmur - GI/Abdominal Exam GI & Abdominal Exam: Soft, Normal Bowel Sounds. absent: Distended, Firm, Guarding, Rigid, Tenderness - Extremities Exam Extremities Exam: Full ROM, Normal Capillary Refill, Normal Inspection. absent : Joint Swelling, Pedal Edema - Neurological Exam Neurological Exam: Alert, Awake, CN II-XII Intact, Normal Gait, Oriented x3 - Skin Skin Exam: Dry, Intact, Normal Color, Warm Assessment and Plan (1) Thickened mitral leaflet Assessment & Plan: Cardiac Stable at this time for DC with follow up with Dr. Juan/Dr. Clark in their office/clinic or personal labor and delivery registered nurse Hemodynamically Stable Counselled at bedside about cessation of alcohol use Unlikely 2/2 to Endocarditis - Mccarthy Criteria: 1major, 1 minor- negative (unlikely endocarditis) (2major, 1 major + 3 minor, 5 minor = endocarditis is likely) : Major Criteria- 1 (inconclusive ANTONIO) 1.) Blood Cultures- negative 2.) ANTONIO inconclusive: No New Regurgitant Murmur, Thickened Mitral Valve : Minor Criteria- 1 (possibly related stroke) 1.) Denies IVDU 2.) Afebrile 3.) Vascular Phenomena- Cranial Infarct, unknown if related 4.) No immunologic phenomena (Osler Node, Morrissey Spots, ect.) 5.) Blood Cultures- negative - patient receiving IV vancomycin 1g q24 - no leukocytosis Continue: - Aspirin 81mg PO daily - Plavix 75mg PO Daily - Crestor 10mg PO HS 08/26/16 Carotid Doppler- mild disease b/l without hemodynamically significant stenosis 08/25/16 ANTONIO- normal left ventricular systolic function with normal EF (66% on echo), no thrombus in left atrial appendage, normal aortic valve, Thickening of Anterior Mitral Valve Leaflet (cannot rule out endocarditis) 08/22/16 Brain MRI- Two adjacent foci of diffusion restriction seen at the left caudate head and adjacent left putamen demonstrate no enhancement or surrounding vasogenic edema. Findings suspicious for acute infarcts. No evidence of enhancing mass lesion in the brain. No evidence of mass effect or midline shift. 08/22/16 CTA Head/Neck- No evidence of hemodynamically significant stenosis in the carotid arteries at the neck or in the intracranial arteries. No evidence of aneurysm or acute pathology 08/21/[address]- No evidence of acute intracranial hemorrhage or acute pathology in the brain. Case Discussed with Dr. Amber Jung PGY1 Status: Acute (2) Ischemic stroke Status: Acute <Esther Clark - Last Filed: 10/06/16 03:58> Objective - Vital Signs/Intake and Output Vital Signs (last 24 hours): Temp Pulse Resp BP Pulse Ox 98 F 69 20 125/78 100 09/01/16 16:39 09/01/16 16:39 09/01/16 16:39 09/01/16 16:39 09/01/16 16:39 - Labs Labs: 08/29/16 07:36 08/29/16 07:36 PT 11.1 SECONDS (9.7-12.2) 08/25/16 08:00 INR 1.0 08/25/16 08:00 Assessment and Plan (1) Alcohol withdrawal Status: Acute Attending/Attestation - Attestation I have personally seen and examined this patient.: Yes I have fully participated in the care of the patient.: Yes I have reviewed all pertinent clinical information, including history, physical exam and plan: Yes Notes (Text): 10/06/16 03:58 finishing abx ef nl
[2016-08-28] MEDS: Sodium Chloride 0.9% 1,000 ML IV SCH (10:40)
[2016-08-28 10:43] LABS: EOSINOPHIL 2 % (0-4); NEUTROPHIL 55 % (50-75); TOTAL CELLS COUNTED 100
--- NOTE | 2016-08-28 17:24 | CP.PCM.PN ---
Subjective - Date & Time of Evaluation Date of Evaluation: 08/28/16 Time of Evaluation: 08:00 - Subjective Subjective: Medicine Progress Note- Dr. Lemus's service: Patient seen and examined at bedside this AM. Patient with many questions. She is visibly anxious. Reports wanting to speak with neurologist. Patient cleared by cardio, neuro and ID. Patient was seen by physical therapy again today and re -evaluated. All questions answered. Patient will be discontinued off antibiotics. Objective - Vital Signs/Intake and Output Vital Signs (last 24 hours): Temp Pulse Resp BP Pulse Ox 98.7 F 100 H 20 137/86 98 08/28/16 16:19 08/28/16 16:19 08/28/16 16:19 08/28/16 16:19 08/28/16 16:19 Intake and Output: 08/28/16 08/28/16 06:59 18:59 Intake Total 1440 Balance 1440 - Medications Medications: Current Medications Aspirin (Ecotrin) 81 mg PO DAILY [facility] Last Admin: 08/28/16 09:12 Dose: 81 mg Clopidogrel Bisulfate (Plavix) 75 mg PO DAILY [facility] Last Admin: 08/28/16 09:12 Dose: 75 mg Divalproex Sodium (Depakote Dr) 250 mg PO BID [facility] Last Admin: 08/28/16 09:12 Dose: 250 mg Famotidine (Pepcid) 20 mg PO BID [facility] Last Admin: 08/28/16 09:12 Dose: 20 mg Folic Acid (Folic Acid) 1 mg PO DAILY [facility] Last Admin: 08/28/16 09:12 Dose: 1 mg Gabapentin (Neurontin) 100 mg PO TID [facility] Last Admin: 08/28/16 13:33 Dose: 100 mg Guaifenesin (Mucinex La) 600 mg PO BID [facility] Stop: 08/29/16 10:01 Last Admin: 08/28/16 09:12 Dose: 600 mg Hydroxyzine HCl (Atarax) 25 mg PO Q6 PRN PRN Reason: Anxiety Last Admin: 08/27/16 17:19 Dose: 25 mg Ceftriaxone Sodium 2 gm/ (Sodium Chloride) 100 mls @ 100 mls/hr IVPB Q24H [facility] Last Admin: 08/27/16 20:19 Dose: 100 mls/hr Sodium Chloride (Sodium Chloride 0.9%) 1,000 mls @ 60 mls/hr IV .[id number] [facility] Last Admin: 08/28/16 10:40 Dose: 60 mls/hr Vancomycin/Sodium Chloride (Vancocin) 1 gm in 200 mls @ 133.333 mls/hr IVPB Q24H [facility] Stop: 08/31/16 13:01 Last Admin: 08/27/16 13:29 Dose: 133.333 mls/hr Multivitamins (Hexavitamin) 1 tab PO DAILY [facility] Last Admin: 08/28/16 09:12 Dose: 1 tab Nystatin (Nystatin Oral Susp) 5 ml PO QID [facility] Last Admin: 08/28/16 13:33 Dose: 5 ml Rosuvastatin Calcium (Crestor) 10 mg PO [facility] Last Admin: 08/27/16 22:10 Dose: 10 mg Thiamine HCl (Vitamin B1 Tab) 100 mg PO DAILY [facility] Last Admin: 08/28/16 09:12 Dose: 100 mg Trazodone HCl (Desyrel) 50 mg PO [facility] Last Admin: 08/27/16 22:10 Dose: 50 mg - Labs Labs: 08/28/16 07:23 08/28/16 07:23 PT 11.1 SECONDS (9.7-12.2) 08/25/16 08:00 INR 1.0 08/25/16 08:00 - Constitutional Appears: No Acute Distress - Head Exam Head Exam: NORMAL INSPECTION, NORMOCEPHALIC - Eye Exam Eye Exam: EOMI, Normal appearance - ENT Exam ENT Exam: Mucous Membranes Moist - Neck Exam Neck Exam: Full ROM - Respiratory Exam Respiratory Exam: Clear to Ausculation Bilateral, NORMAL BREATHING PATTERN - Cardiovascular Exam Cardiovascular Exam: REGULAR RHYTHM, +S1, +S2 - GI/Abdominal Exam GI & Abdominal Exam: Soft. absent: Distended, Tenderness - Extremities Exam Extremities Exam: Full ROM, Normal Inspection - Back Exam Back Exam: NORMAL INSPECTION - Neurological Exam Neurological Exam: Alert, Oriented x3 - Psychiatric Exam Psychiatric exam: Anxious - Skin Skin Exam: Dry, Normal Color, Warm Assessment and Plan - Assessment and Plan (Free Text) Assessment: (1) Ischemic stroke Neuro consult placed- Dr. Skinner MRI of the brain showed a left caudate and basal ganglia acute and subacute ischemic stroke. As per Dr. Skinner: * Aspirin 81 mg daily and Plavix 75 mg daily for 21 days per the [facility] protocol and after 21 days continue only aspirin 81 mg indefinitely. Plavix started on 08/22/16. * Seroquel 25 mg QHS for hallucinations. Avoid benzodiazepines or opiates. * As per Dr. Skinner, patient is stable for discharge with outpatient follow up with Dr. Ramos Gillespie. Cardio- Dr. Juan consulted for cardiac work-up for dysrrhythmia or other cardio- embolic causes. As per cardio: * Cardiac Stable at this time for DC with follow up with Dr. Juan/Dr. Clark in their office/clinic or personal product specialist. * Echocardiogram with bubble study done today. As discussed with Dr. Juan, patient with thickened heart valve. Cannot rule out endocarditis. carotid dopplers- negative venous dopplers- negative Continue Crestor 10 mg PO HS, ASA 81 mg PO daily and Plavix for 21 days. PT/OT Speech Therapy Fall risk protocol (2) Thickened Mitral Valve Echocardiogram with bubble study done. As discussed with Dr. Juan, patient with thickened heart valve. Cannot rule out endocarditis (see workup below). ID consult- Dr. Mattson-help appreciated. As per Dr. Mattson will discontinue IV antibiotics. Patient does not meet Mccarthy Criteria for Endorcaditis. Blood cultures X2 on 08/25/16. Continue: - Aspirin 81mg PO daily - Plavix 75mg PO Daily - Crestor 10mg PO HS (3) Fall Assessment & Plan: Head CT this negative for IC bleed. UDS negative Neuro consult placed- Dr. Skinner EEG done D/C Depakote and Gabapentin as patient's symptoms likely 2/2 stroke. UDS negative PT/OT Status: Acute Status: Acute (4) Alcohol use Assessment & Plan: Patient denies alcohol abuse or history of alcohol abuse. Ativan PRN Thiamine 100 mg PO daily MV PO daily Folic Acid 1 mg PO daily Seizure, fall and aspiration precautions. Status: Acute (5) Bipolar 1 disorder most recent episode manic moderate Psych consult placed- Dr. Sweeney- help appreciated. CBT Psychoeducation Supportive therapy, group therapy, individual therapy Depakote 250 mg by mouth BID Neurontin 100 mg by mouth 3 times a day Trazodone 50 mg by mouth daily at bedtime (6) Hypokalemia Assessment & Plan: K+ 4.2 today. f/u CMP in the AM Status: Acute (7) Livedo Reticularis Consulted Dr De La Fuente- no acute intervention, continue to monitor LE Dopplers negative Monitor (8) Prophylactic measure Assessment & Plan: Pepcid 2mg PO BID SCDs Status: Acute all management as per Dr. Lemus.
--- NOTE | 2016-08-28 18:14 | CP.PCM.PN ---
Subjective - Date & Time of Evaluation Date of Evaluation: 08/28/16 Time of Evaluation: 08:00 - Subjective Subjective: iv antibiotics in progress cultures neg thus far Objective - Vital Signs/Intake and Output Vital Signs (last 24 hours): Temp Pulse Resp BP Pulse Ox 98.7 F 100 H 20 137/86 98 08/28/16 16:19 08/28/16 16:19 08/28/16 16:19 08/28/16 16:19 08/28/16 16:19 Intake and Output: 08/28/16 08/28/16 06:59 18:59 Intake Total 1440 Balance 1440 - Medications Medications: Current Medications Aspirin (Ecotrin) 81 mg PO DAILY [facility] Last Admin: 08/28/16 09:12 Dose: 81 mg Clopidogrel Bisulfate (Plavix) 75 mg PO DAILY [facility] Last Admin: 08/28/16 09:12 Dose: 75 mg Divalproex Sodium (Depakote Dr) 250 mg PO BID [facility] Last Admin: 08/28/16 18:06 Dose: 250 mg Famotidine (Pepcid) 20 mg PO BID [facility] Last Admin: 08/28/16 18:06 Dose: 20 mg Folic Acid (Folic Acid) 1 mg PO DAILY [facility] Last Admin: 08/28/16 09:12 Dose: 1 mg Gabapentin (Neurontin) 100 mg PO TID [facility] Last Admin: 08/28/16 18:06 Dose: 100 mg Guaifenesin (Mucinex La) 600 mg PO BID [facility] Stop: 08/29/16 10:01 Last Admin: 08/28/16 18:06 Dose: 600 mg Hydroxyzine HCl (Atarax) 25 mg PO Q6 PRN PRN Reason: Anxiety Last Admin: 08/27/16 17:19 Dose: 25 mg Sodium Chloride (Sodium Chloride 0.9%) 1,000 mls @ 60 mls/hr IV .[id number] [facility] Last Admin: 08/28/16 10:40 Dose: 60 mls/hr Multivitamins (Hexavitamin) 1 tab PO DAILY [facility] Last Admin: 08/28/16 09:12 Dose: 1 tab Nystatin (Nystatin Oral Susp) 5 ml PO QID [facility] Last Admin: 08/28/16 18:06 Dose: 5 ml Rosuvastatin Calcium (Crestor) 10 mg PO HS [facility] Last Admin: 08/27/16 22:10 Dose: 10 mg Thiamine HCl (Vitamin B1 Tab) 100 mg PO DAILY [facility] Last Admin: 08/28/16 09:12 Dose: 100 mg Trazodone HCl (Desyrel) 50 mg PO HS [facility] Last Admin: 08/27/16 22:10 Dose: 50 mg - Labs Labs: 08/28/16 07:23 08/28/16 07:23 PT 11.1 SECONDS (9.7-12.2) 08/25/16 08:00 INR 1.0 08/25/16 08:00 - Constitutional Appears: Non-toxic, Cachectic, Chronically Ill - Head Exam Head Exam: NORMOCEPHALIC - Eye Exam Eye Exam: absent: Scleral icterus - ENT Exam ENT Exam: Mucous Membranes Dry - Neck Exam Neck Exam: absent: Lymphadenopathy - Respiratory Exam Respiratory Exam: Decreased Breath Sounds - Cardiovascular Exam Cardiovascular Exam: REGULAR RHYTHM, +S1, +S2 - GI/Abdominal Exam GI & Abdominal Exam: Distended, Soft
[2016-08-29] MEDS ORDERED: guaiFENesin DM 100 mg-10 mg/5 ml UD PO ONE (01:00)
[2016-08-29 07:53] LABS: BASO # 0.1 K/uL (0.0-0.2); EOS % 0.5 % (0.0-4.0); HEMATOCRIT 33.3 % (34.0-47.0); MEAN CELL VOLUME 97.8 fL (81.0-99.0); MEAN CORPUSCULAR HGB CONC 32.7 g/dL (33.0-37.0); MEAN PLATELET VOLUME 8.3 fL (7.2-11.7); MONO # 0.9 K/uL (0.0-0.8); MONO % 22.6 % (0.0-10.0); PLATELET COUNT 229 K/uL (130-400); RED CELL DISTRIBUTION WIDTH 14.3 % (11.5-14.5); WHITE BLOOD COUNT 3.9 K/uL (4.8-10.8)
[2016-08-29 08:10] LABS: CHLORIDE 99 mmol/L (98-107)
[2016-08-29 08:11] LABS: POTASSIUM 4.2 mmol/L (3.6-5.2); SODIUM 135 mmol/L (132-148)
[2016-08-29 08:13] LABS: ALB/GLOB RATIO 1.1 (1.0-2.1); AST/SGOT 57 U/L (14-36); BILIRUBIN,TOTAL 0.5 mg/dL (0.2-1.3); BLOOD UREA NITROGEN 7 mg/dL (7-17); CARBON DIOXIDE 26 mmol/L (22-30); GFR AFRICAN-AMERICAN > 60; TOTAL PROTEIN 6.7 g/dL (6.3-8.3)
[2016-08-29 08:14] LABS: ALKALINE PHOSPHATASE 48 U/L (38-126); ALT/SGPT 39 U/L (9-52); CALCIUM 7.9 mg/dl (8.6-10.4); GLUCOSE,RANDOM 81 mg/dL (65-105); MAGNESIUM 1.9 mg/dL (1.6-2.3); PHOSPHOROUS 4.5 mg/dL (2.5-4.5)
[2016-08-29] MEDS: Nystatin 100,000 Units/ml Oral Susp 5 ml UD PO SCH ×4 (09:21→22:06)
[2016-08-29] MEDS: guaiFENesin 600 mg ER Tab PO SCH (09:22)
[2016-08-29] MEDS: Multiple Vitamins Tab PO SCH (09:22)
[2016-08-29] MEDS: Divalproex 250 mg DR Tab PO SCH (09:23)
[2016-08-29 09:47] LABS: BASOPHIL 1 % (0-2); TOTAL CELLS COUNTED 100
[2016-08-29 09:48] LABS: NEUTROPHIL 51 % (50-75)
--- NOTE | 2016-08-29 10:55 | RAD ---
PROCEDURE: CHEST RADIOGRAPH, 1 VIEW. Portable study 10:10. HISTORY: cough COMPARISON: 04/10/2015. FINDINGS: LUNGS: Clear. PLEURA: No pneumothorax or pleural fluid seen. CARDIOVASCULAR: No radiographic findings to suggest acute or significant cardiovascular disease. OSSEOUS STRUCTURES: No significant abnormalities. VISUALIZED UPPER ABDOMEN: Normal. OTHER FINDINGS: None. IMPRESSION: No active disease. No acute/significant interval changes.
--- NOTE | 2016-08-29 11:22 | CP.PCM.PN ---
Subjective - Date & Time of Evaluation Date of Evaluation: 08/29/16 Time of Evaluation: 08:00 - Subjective Subjective: Medicine Progress Note- Dr. Lemus's Service: Patient seen and examined at bedside this AM. Patient is ambulating to and from the bathroom without assistance. Patient has no reported issues overnight. She is complaining of nasal congestion and cough this AM. She reports a fever overnight. Patient had 3 pages worth of questions that were answered by me. Patient reassured. Objective - Vital Signs/Intake and Output Vital Signs (last 24 hours): Temp Pulse Resp BP Pulse Ox 99.6 F 93 H 20 93/56 L 97 08/29/16 07:00 08/29/16 08:00 08/29/16 07:00 08/29/16 07:00 08/29/16 07:00 - Medications Medications: Current Medications Aspirin (Ecotrin) 81 mg PO DAILY [facility] Last Admin: 08/29/16 09:23 Dose: 81 mg Clopidogrel Bisulfate (Plavix) 75 mg PO DAILY [facility] Last Admin: 08/29/16 09:23 Dose: 75 mg Divalproex Sodium (Depakote Dr) 250 mg PO BID [facility] Last Admin: 08/29/16 09:23 Dose: 250 mg Famotidine (Pepcid) 20 mg PO BID [facility] Last Admin: 08/29/16 09:22 Dose: 20 mg Folic Acid (Folic Acid) 1 mg PO DAILY [facility] Last Admin: 08/29/16 09:22 Dose: 1 mg Gabapentin (Neurontin) 100 mg PO TID [facility] Last Admin: 08/29/16 09:21 Dose: 100 mg Hydroxyzine HCl (Atarax) 25 mg PO Q6 PRN PRN Reason: Anxiety Last Admin: 08/29/16 01:29 Dose: 25 mg Sodium Chloride (Sodium Chloride 0.9%) 1,000 mls @ 60 mls/hr IV .[id number] [facility] Last Admin: 08/28/16 10:40 Dose: 60 mls/hr Multivitamins (Hexavitamin) 1 tab PO DAILY [facility] Last Admin: 08/29/16 09:22 Dose: 1 tab Nystatin (Nystatin Oral Susp) 5 ml PO QID [facility] Last Admin: 08/29/16 09:21 Dose: 5 ml Rosuvastatin Calcium (Crestor) 10 mg PO HS [facility] Last Admin: 08/28/16 21:30 Dose: 10 mg Thiamine HCl (Vitamin B1 Tab) 100 mg PO DAILY [facility] Last Admin: 08/29/16 09:23 Dose: 100 mg Trazodone HCl (Desyrel) 50 mg PO HS [facility] Last Admin: 08/28/16 21:30 Dose: 50 mg - Labs Labs: 08/29/16 07:36 08/29/16 07:36 PT 11.1 SECONDS (9.7-12.2) 08/25/16 08:00 INR 1.0 08/25/16 08:00 - Constitutional Appears: No Acute Distress - Head Exam Head Exam: NORMAL INSPECTION, NORMOCEPHALIC - Eye Exam Eye Exam: EOMI, Normal appearance - ENT Exam ENT Exam: Mucous Membranes Moist - Neck Exam Neck Exam: Full ROM, Normal Inspection - Respiratory Exam Respiratory Exam: Clear to Ausculation Bilateral, NORMAL BREATHING PATTERN - Cardiovascular Exam Cardiovascular Exam: REGULAR RHYTHM, +S1, +S2 - GI/Abdominal Exam GI & Abdominal Exam: Soft. absent: Tenderness - Extremities Exam Extremities Exam: Full ROM. absent: Pedal Edema, Tenderness - Neurological Exam Neurological Exam: Alert, Oriented x3 - Psychiatric Exam Psychiatric exam: Normal Mood - Skin Skin Exam: Normal Color Assessment and Plan - Assessment and Plan (Free Text) Assessment: (1) Ischemic stroke Neuro consult placed- Dr. Skinner MRI of the brain showed a left caudate and basal ganglia acute and subacute ischemic stroke. As per Dr. Skinner: * Aspirin 81 mg daily and Plavix 75 mg daily for 21 days per the [facility] protocol and after 21 days continue only aspirin 81 mg indefinitely. Plavix started on 08/22/16. * As per Dr. Skinner, patient is stable for discharge with outpatient follow up with Dr. Ramos Gillespie. Cardio- Dr. Juan consulted for cardiac work-up for dysrrhythmia or other cardio- embolic causes. As per cardio: * Cardiac Stable at this time for DC with follow up with Dr. Juan/Dr. Clark in their office/clinic or personal plant control aide. * Echocardiogram with bubble study done today. As discussed with Dr. Juan, patient with thickened heart valve. Cannot rule out endocarditis. carotid dopplers- negative venous dopplers- negative Continue Crestor 10 mg PO HS, ASA 81 mg PO daily and Plavix for 21 days. PT/OT Speech Therapy Fall risk protocol (2) Thickened Mitral Valve Echocardiogram with bubble study done. As discussed with Dr. Juan, patient with thickened heart valve. ID consult- Dr. Mattson-help appreciated. As per Dr. Mattson will discontinue IV antibiotics since patient does not meet criteria for endorcaditis. Blood cultures X2 on 08/25/16. Patient will need to follow up as outpatient and repeat ECHO in 3 months. (3) Fall Assessment & Plan: Head CT this negative for IC bleed. UDS negative Neuro consult placed- Dr. Skinner EEG done D/C Depakote and Gabapentin as patient's symptoms likely 2/2 stroke. UDS negative PT/OT Status: Acute Status: Acute (4) Alcohol use Assessment & Plan: Patient denies alcohol abuse or history of alcohol abuse. Ativan PRN Thiamine 100 mg PO daily MV PO daily Folic Acid 1 mg PO daily Seizure, fall and aspiration precautions. Status: Acute (5) Bipolar 1 disorder most recent episode manic moderate Psych consult placed- Dr. Sweeney- help appreciated. CBT Psychoeducation Supportive therapy, group therapy, individual therapy D/C Depakote as per Dr. Sweeney Neurontin 100 mg by mouth 3 times a day Trazodone 50 mg by mouth daily at bedtime (6) Forgetfulness Assessment & Plan: Will D/C depakote as per Dr. Sweeney to see if mentation improves. Status: Acute (7) Livedo Reticularis Consulted Dr De La Fuente- no acute intervention, continue to monitor LE Dopplers negative Monitor (8) Prophylactic measure Assessment & Plan: Pepcid 2mg PO BID Patient is ambulating SCDs Status: Acute PT recommends TCU or [facility]. Patient has no handrails at home and lives in a room on a second floor where patient reports she cannot use walker if provided. Patient has insurance issues with [facility] approval. Case management attempting to seek authorization for [facility]. Managements as per Dr. Lemus.
--- NOTE | 2016-08-29 11:38 | CP.PCM.PN ---
<Ck Jung - Last Filed: 08/29/16 11:36> Subjective - Date & Time of Evaluation Date of Evaluation: 08/29/16 Time of Evaluation: 11:36 - Subjective Subjective: Cardiology Progress Note Dr. Clark (covering for Dr. Juan) Patient seen and examined at bedside. No acute distress. No acute events overnight. Nursing staff reports no issues. Patient had temp of 100.1 overnight and was asymptomatic. This morning she reports mild, intermittent chills. Patient appears comfortable in bed at this time. The patient denies all cardiopulmonary symptoms this morning. 12 point review of symptoms preformed and returned negative for all acute complaints except for the above mentioned complaints. Objective - Vital Signs/Intake and Output Vital Signs (last 24 hours): Temp Pulse Resp BP Pulse Ox 99.6 F 93 H 20 93/56 L 97 08/29/16 07:00 08/29/16 08:00 08/29/16 07:00 08/29/16 07:00 08/29/16 07:00 - Medications Medications: Current Medications Aspirin (Ecotrin) 81 mg PO DAILY [facility] Last Admin: 08/29/16 09:23 Dose: 81 mg Clopidogrel Bisulfate (Plavix) 75 mg PO DAILY [facility] Last Admin: 08/29/16 09:23 Dose: 75 mg Divalproex Sodium (Depakote Dr) 250 mg PO BID [facility] Last Admin: 08/29/16 09:23 Dose: 250 mg Famotidine (Pepcid) 20 mg PO BID [facility] Last Admin: 08/29/16 09:22 Dose: 20 mg Folic Acid (Folic Acid) 1 mg PO DAILY [facility] Last Admin: 08/29/16 09:22 Dose: 1 mg Gabapentin (Neurontin) 100 mg PO TID [facility] Last Admin: 08/29/16 09:21 Dose: 100 mg Hydroxyzine HCl (Atarax) 25 mg PO Q6 PRN PRN Reason: Anxiety Last Admin: 08/29/16 01:29 Dose: 25 mg Sodium Chloride (Sodium Chloride 0.9%) 1,000 mls @ 60 mls/hr IV .[id number] [facility] Last Admin: 08/28/16 10:40 Dose: 60 mls/hr Multivitamins (Hexavitamin) 1 tab PO DAILY [facility] Last Admin: 08/29/16 09:22 Dose: 1 tab Nystatin (Nystatin Oral Susp) 5 ml PO QID [facility] Last Admin: 08/29/16 09:21 Dose: 5 ml Rosuvastatin Calcium (Crestor) 10 mg PO [facility] Last Admin: 08/28/16 21:30 Dose: 10 mg Thiamine HCl (Vitamin B1 Tab) 100 mg PO DAILY [facility] Last Admin: 08/29/16 09:23 Dose: 100 mg Trazodone HCl (Desyrel) 50 mg PO [facility] Last Admin: 08/28/16 21:30 Dose: 50 mg - Labs Labs: 08/29/16 07:36 08/29/16 07:36 PT 11.1 SECONDS (9.7-12.2) 08/25/16 08:00 INR 1.0 08/25/16 08:00 - Additional Findings Additional findings: - Constitutional Appears: Older Than Stated Age - Head Exam Head Exam: ATRAUMATIC, NORMAL INSPECTION, NORMOCEPHALIC - Eye Exam Eye Exam: EOMI, Normal appearance - ENT Exam ENT Exam: Mucous Membranes Moist, Normal Exam - Neck Exam Neck Exam: Full ROM, Normal Inspection. absent: Lymphadenopathy, Tenderness - Respiratory Exam Respiratory Exam: Clear to Ausculation Bilateral, NORMAL BREATHING PATTERN. absent: Rales, Rhonchi, Wheezes, Respiratory Distress, Stridor - Cardiovascular Exam Cardiovascular Exam: REGULAR RHYTHM, RRR, +S1, +S2. absent: Diastolic murmur, Murmur - GI/Abdominal Exam GI & Abdominal Exam: Soft, Normal Bowel Sounds. absent: Distended, Firm, Guarding, Rigid, Tenderness - Extremities Exam Extremities Exam: Full ROM, Normal Capillary Refill, Normal Inspection. absent : Joint Swelling, Pedal Edema - Neurological Exam Neurological Exam: Alert, Awake, CN II-XII Intact, Normal Gait, Oriented x3 - Skin Skin Exam: Dry, Intact, Normal Color, Warm Assessment and Plan (1) Thickened mitral leaflet Assessment & Plan: Cardiac Stable at this time for DC with follow up with Dr. Juan or Dr. Clark in their office/clinic or personal railroad yard worker Hemodynamically Stable Counselled at bedside about cessation of alcohol use Unlikely 2/2 to Endocarditis - Mccarthy Criteria: 1major, 1 minor- negative (unlikely endocarditis) (2major, 1 major + 3 minor, 5 minor = endocarditis is likely) : Major Criteria- 1 (inconclusive ANTONIO) 1.) Blood Cultures- negative 2.) ANTONIO inconclusive: No New Regurgitant Murmur, Thickened Mitral Valve : Minor Criteria- 1 (possibly related stroke) 1.) Denies IVDU 2.) Afebrile 3.) Vascular Phenomena- Cranial Infarct, unknown if related 4.) No immunologic phenomena (Osler Node, Morrissey Spots, ect.) 5.) Blood Cultures- negative - IV Vancomycin DC - no leukocytosis Continue: - Aspirin 81mg PO daily - Plavix 75mg PO Daily - Crestor 10mg PO HS 08/26/16 Carotid Doppler- mild disease b/l without hemodynamically significant stenosis 08/25/16 ANTONIO- normal left ventricular systolic function with normal EF (66% on echo), no thrombus in left atrial appendage, normal aortic valve, Thickening of Anterior Mitral Valve Leaflet (cannot rule out endocarditis) 08/22/16 Brain MRI- Two adjacent foci of diffusion restriction seen at the left caudate head and adjacent left putamen demonstrate no enhancement or surrounding vasogenic edema. Findings suspicious for acute infarcts. No evidence of enhancing mass lesion in the brain. No evidence of mass effect or midline shift. 08/22/16 CTA Head/Neck- No evidence of hemodynamically significant stenosis in the carotid arteries at the neck or in the intracranial arteries. No evidence of aneurysm or acute pathology 08/21/[address]- No evidence of acute intracranial hemorrhage or acute pathology in the brain. Case Discussed with Dr. Abmer Jung PGY1 Status: Acute (2) Ischemic stroke Status: Acute <Esther Clark - Last Filed: 10/06/16 03:58> Objective - Vital Signs/Intake and Output Vital Signs (last 24 hours): Temp Pulse Resp BP Pulse Ox 98 F 69 20 125/78 100 09/01/16 16:39 09/01/16 16:39 09/01/16 16:39 09/01/16 16:39 09/01/16 16:39 - Labs Labs: 08/29/16 07:36 08/29/16 07:36 PT 11.1 SECONDS (9.7-12.2) 08/25/16 08:00 INR 1.0 08/25/16 08:00 Assessment and Plan (1) Alcohol withdrawal Status: Acute Attending/Attestation - Attestation I have personally seen and examined this patient.: Yes I have fully participated in the care of the patient.: Yes I have reviewed all pertinent clinical information, including history, physical exam and plan: Yes Notes (Text): 10/06/16 03:58 continue crestor and plavix
[2016-08-29] MEDS: Promethazine DM 6.25 mg-15 mg/5 ml Syrup PO PRN (20:15)
[2016-08-30] MEDS: Promethazine DM 6.25 mg-15 mg/5 ml Syrup PO PRN ×4 (02:16→22:33)
[2016-08-30] MEDS: Sodium Chloride 0.9% 1,000 ML IV SCH (02:33)
--- NOTE | 2016-08-30 07:56 | CP.PCM.PN ---
Subjective - Date & Time of Evaluation Date of Evaluation: 08/30/16 Time of Evaluation: 07:53 - Subjective Subjective: pt tolerating po s/p abx Objective - Vital Signs/Intake and Output Vital Signs (last 24 hours): Temp Pulse Resp BP Pulse Ox 99.2 F 87 20 123/76 97 08/30/16 06:10 08/30/16 04:35 08/30/16 04:35 08/30/16 04:35 08/30/16 04:35 Intake and Output: 08/30/16 08/30/16 06:59 18:59 Intake Total 720 Balance 720 - Medications Medications: Current Medications Aspirin (Ecotrin) 81 mg PO DAILY [facility] Last Admin: 08/29/16 09:23 Dose: 81 mg Clopidogrel Bisulfate (Plavix) 75 mg PO DAILY [facility] Last Admin: 08/29/16 09:23 Dose: 75 mg Famotidine (Pepcid) 20 mg PO BID [facility] Last Admin: 08/29/16 17:37 Dose: 20 mg Folic Acid (Folic Acid) 1 mg PO DAILY [facility] Last Admin: 08/29/16 09:22 Dose: 1 mg Gabapentin (Neurontin) 100 mg PO TID [facility] Last Admin: 08/29/16 17:37 Dose: 100 mg Hydroxyzine HCl (Atarax) 25 mg PO Q6 PRN PRN Reason: Anxiety Last Admin: 08/29/16 01:29 Dose: 25 mg Sodium Chloride (Sodium Chloride 0.9%) 1,000 mls @ 60 mls/hr IV .[id number] [facility] Last Admin: 08/30/16 02:33 Dose: 60 mls/hr Multivitamins (Hexavitamin) 1 tab PO DAILY [facility] Last Admin: 08/29/16 09:22 Dose: 1 tab Nystatin (Nystatin Oral Susp) 5 ml PO QID [facility] Last Admin: 08/29/16 22:06 Dose: 5 ml Promethazine HCl/Dextromethorphan (Phenergan Dm Syrup) 5 ml PO Q6H PRN PRN Reason: Cough Last Admin: 08/30/16 02:16 Dose: 5 ml Rosuvastatin Calcium (Crestor) 10 mg PO HS [facility] Last Admin: 08/29/16 22:08 Dose: 10 mg Thiamine HCl (Vitamin B1 Tab) 100 mg PO DAILY [facility] Last Admin: 08/29/16 09:23 Dose: 100 mg Trazodone HCl (Desyrel) 50 mg PO HS [facility] Last Admin: 08/29/16 22:08 Dose: 50 mg - Labs Labs: 08/29/16 07:36 08/29/16 07:36 PT 11.1 SECONDS (9.7-12.2) 08/25/16 08:00 INR 1.0 08/25/16 08:00 - Constitutional Appears: Well - Head Exam Head Exam: ATRAUMATIC - Eye Exam Eye Exam: Normal appearance - ENT Exam ENT Exam: Mucous Membranes Moist - Respiratory Exam Respiratory Exam: Clear to Ausculation Bilateral - Cardiovascular Exam Cardiovascular Exam: REGULAR RHYTHM. absent: JVD - GI/Abdominal Exam GI & Abdominal Exam: Soft, Normal Bowel Sounds - Exam External exam: NORMAL EXTERNAL EXAM - Extremities Exam Extremities Exam: Normal Inspection - Neurological Exam Neurological Exam: Alert - Psychiatric Exam Psychiatric exam: Normal Affect - Skin Skin Exam: Warm Assessment and Plan (1) Alcohol withdrawal Assessment & Plan: pt follow up as outpt encourage po fluids Status: Acute
[2016-08-30] MEDS: Multiple Vitamins Tab PO SCH (09:31)
[2016-08-30] MEDS: Nystatin 100,000 Units/ml Oral Susp 5 ml UD PO SCH ×3 (09:31→17:19)
--- NOTE | 2016-08-31 07:27 | CP.PCM.PN ---
Subjective - Date & Time of Evaluation Date of Evaluation: 08/31/16 Time of Evaluation: 07:15 - Subjective Subjective: no complaints this am no cp Objective - Vital Signs/Intake and Output Vital Signs (last 24 hours): Temp Pulse Resp BP Pulse Ox 98.7 F 77 20 110/63 98 08/30/16 23:45 08/30/16 23:45 08/30/16 23:45 08/30/16 23:45 08/30/16 23:45 - Medications Medications: Current Medications Aspirin (Ecotrin) 81 mg PO DAILY [facility] Last Admin: 08/30/16 09:31 Dose: 81 mg Clopidogrel Bisulfate (Plavix) 75 mg PO DAILY [facility] Last Admin: 08/30/16 09:31 Dose: 75 mg Famotidine (Pepcid) 20 mg PO BID [facility] Last Admin: 08/30/16 17:18 Dose: 20 mg Folic Acid (Folic Acid) 1 mg PO DAILY [facility] Last Admin: 08/30/16 09:31 Dose: 1 mg Gabapentin (Neurontin) 100 mg PO TID [facility] Last Admin: 08/30/16 17:18 Dose: 100 mg Hydroxyzine HCl (Atarax) 25 mg PO Q6 PRN PRN Reason: Anxiety Last Admin: 08/29/16 01:29 Dose: 25 mg Sodium Chloride (Sodium Chloride 0.9%) 1,000 mls @ 60 mls/hr IV .[id number] [facility] Last Admin: 08/30/16 02:33 Dose: 60 mls/hr Multivitamins (Hexavitamin) 1 tab PO DAILY [facility] Last Admin: 08/30/16 09:31 Dose: 1 tab Promethazine HCl/Dextromethorphan (Phenergan Dm Syrup) 5 ml PO Q6H PRN PRN Reason: Cough Last Admin: 08/30/16 22:33 Dose: 5 ml Rosuvastatin Calcium (Crestor) 10 mg PO HS [facility] Last Admin: 08/30/16 21:31 Dose: 10 mg Thiamine HCl (Vitamin B1 Tab) 100 mg PO DAILY [facility] Last Admin: 08/30/16 09:31 Dose: 100 mg Trazodone HCl (Desyrel) 50 mg PO HS [facility] Last Admin: 08/30/16 21:31 Dose: 50 mg - Labs Labs: 08/29/16 07:36 08/29/16 07:36 PT 11.1 SECONDS (9.7-12.2) 08/25/16 08:00 INR 1.0 08/25/16 08:00 - Constitutional Appears: Well - Head Exam Head Exam: ATRAUMATIC - Eye Exam Eye Exam: Normal appearance - ENT Exam ENT Exam: Mucous Membranes Moist - Respiratory Exam Respiratory Exam: Clear to Ausculation Bilateral - Cardiovascular Exam Cardiovascular Exam: REGULAR RHYTHM, +S1, +S2 - GI/Abdominal Exam GI & Abdominal Exam: Soft, Normal Bowel Sounds - Exam External exam: NORMAL EXTERNAL EXAM. absent: Erythema - Extremities Exam Extremities Exam: Normal Inspection - Neurological Exam Neurological Exam: Alert, Awake, Oriented x3 - Psychiatric Exam Psychiatric exam: Anxious - Skin Skin Exam: Warm Assessment and Plan (1) Fall Assessment & Plan: NPO for implantable LOOP cryptogenic stroke prevention Status: Acute (2) Ischemic stroke Status: Acute
[2016-08-31] MEDS: Multiple Vitamins Tab PO SCH (09:23)
[2016-08-31] MEDS: Sodium Chloride 0.9% 1,000 ML IV SCH (12:33)
[2016-08-31] MEDS: Promethazine DM 6.25 mg-15 mg/5 ml Syrup PO PRN ×2 (14:40→21:36)
[2016-09-01] MEDS: Promethazine DM 6.25 mg-15 mg/5 ml Syrup PO PRN (05:31)
[2016-09-01] MEDS: Multiple Vitamins Tab PO SCH (11:00)
--- NOTE | 2016-09-01 11:22 | CP.PCM.PN ---
Subjective - Date & Time of Evaluation Date of Evaluation: 09/01/16 Time of Evaluation: 07:35 - Subjective Subjective: Medicine Note- Dr. Lemus's service Patient was seen and examined at bedside. Patient reports she still feels unsteady when she walks. Otherwise, she has no acute complaints. Discussed need for loop recorder, will have one placed today by Dr. Clark, then be discharged to [facility]. Objective - Vital Signs/Intake and Output Vital Signs (last 24 hours): Temp Pulse Resp BP Pulse Ox 98.4 F 63 20 97/59 L 96 09/01/16 07:00 09/01/16 07:00 09/01/16 07:00 09/01/16 07:00 09/01/16 07:00 Intake and Output: 09/01/16 09/01/16 06:59 18:59 Intake Total 980 Balance 980 - Medications Medications: Current Medications Aspirin (Ecotrin) 81 mg PO DAILY [facility] Last Admin: 09/01/16 09:20 Dose: 81 mg Clopidogrel Bisulfate (Plavix) 75 mg PO DAILY [facility] Last Admin: 09/01/16 09:20 Dose: 75 mg Famotidine (Pepcid) 20 mg PO BID [facility] Last Admin: 09/01/16 09:20 Dose: 20 mg Folic Acid (Folic Acid) 1 mg PO DAILY [facility] Last Admin: 09/01/16 09:20 Dose: 1 mg Gabapentin (Neurontin) 100 mg PO TID [facility] Last Admin: 09/01/16 09:20 Dose: 100 mg Hydroxyzine HCl (Atarax) 25 mg PO Q6 PRN PRN Reason: Anxiety Last Admin: 08/29/16 01:29 Dose: 25 mg Multivitamins (Hexavitamin) 1 tab PO DAILY [facility] Last Admin: 09/01/16 11:00 Dose: 1 tab Promethazine HCl/Dextromethorphan (Phenergan Dm Syrup) 5 ml PO Q6H PRN PRN Reason: Cough Last Admin: 09/01/16 05:31 Dose: 5 ml Rosuvastatin Calcium (Crestor) 10 mg PO HS [facility] Last Admin: 08/31/16 21:34 Dose: 10 mg Thiamine HCl (Vitamin B1 Tab) 100 mg PO DAILY [facility] Last Admin: 09/01/16 09:20 Dose: 100 mg Trazodone HCl (Desyrel) 50 mg PO HS [facility] Last Admin: 08/31/16 21:34 Dose: 50 mg - Labs Labs: 08/29/16 07:36 08/29/16 07:36 PT 11.1 SECONDS (9.7-12.2) 08/25/16 08:00 INR 1.0 08/25/16 08:00 - Constitutional Appears: Non-toxic, No Acute Distress - Head Exam Head Exam: ATRAUMATIC, NORMAL INSPECTION, NORMOCEPHALIC - Eye Exam Pupil Exam: NORMAL ACCOMODATION, PERRL - ENT Exam ENT Exam: Mucous Membranes Moist - Respiratory Exam Respiratory Exam: Clear to Ausculation Bilateral, NORMAL BREATHING PATTERN. absent: Prolonged Expiratory Phase, Rales, Rhonchi, Wheezes - Cardiovascular Exam Cardiovascular Exam: REGULAR RHYTHM, +S1, +S2 - GI/Abdominal Exam GI & Abdominal Exam: Soft, Normal Bowel Sounds. absent: Tenderness, Diminished Bowel Sounds, Hypoactive Bowel Sounds - Extremities Exam Extremities Exam: Normal Capillary Refill, Normal Inspection - Neurological Exam Neurological Exam: Alert, Awake, Oriented x3 - Psychiatric Exam Psychiatric exam: Normal Affect, Normal Mood - Skin Skin Exam: Dry, Intact, Normal Color, Warm Assessment and Plan - Assessment and Plan (Free Text) Assessment: (1) Ischemic stroke Neuro consult placed- Dr. Skinner MRI of the brain showed a left caudate and basal ganglia acute and subacute ischemic stroke. As per Dr. Skinner: * Aspirin 81 mg daily and Plavix 75 mg daily for 21 days per the [facility] protocol and after 21 days continue only aspirin 81 mg indefinitely. Plavix started on 08/22/16. * As per Dr. Skinner, patient is stable for discharge with outpatient follow up with Dr. Ramos Gillespie. Cardio- Dr. Juan consulted for cardiac work-up for dysrrhythmia or other cardio- embolic causes. As per cardio: * Cardiac Stable at this time for DC with follow up with Dr. Juan/Dr. Clark in their office/clinic or personal gwot ia/ilo intelligence support. * Echocardiogram with bubble study done today. As discussed with Dr. Juan, patient with thickened heart valve. Cannot rule out endocarditis. carotid dopplers- negative venous dopplers- negative Continue Crestor 10 mg PO HS, ASA 81 mg PO daily and Plavix for 21 days. PT/OT Speech Therapy Fall risk protocol Patient is to receive loop recorder today and be discharged to [facility] with followup (2) Thickened Mitral Valve Echocardiogram with bubble study done. As discussed with Dr. Juan, patient with thickened heart valve. ID consult- Dr. Mattson-help appreciated. As per Dr. Mattson will discontinue IV antibiotics since patient does not meet criteria for endorcaditis. Blood cultures X2 on 08/25/16. Patient will need to follow up as outpatient and repeat ECHO in 3 months. (3) Fall Assessment & Plan: Head CT this negative for IC bleed. UDS negative Neuro consult placed- Dr. Skinner EEG done D/C Depakote and Gabapentin as patient's symptoms likely 2/2 stroke. UDS negative PT/OT Status: Acute Status: Acute (4) Alcohol use Assessment & Plan: Patient denies alcohol abuse or history of alcohol abuse. Ativan PRN Thiamine 100 mg PO daily MV PO daily Folic Acid 1 mg PO daily Seizure, fall and aspiration precautions. Status: Acute (5) Bipolar 1 disorder most recent episode manic moderate Psych consult placed- Dr. Sweeney- help appreciated. CBT Psychoeducation Supportive therapy, group therapy, individual therapy D/C Depakote as per Dr. Sweeney Neurontin 100 mg by mouth 3 times a day Trazodone 50 mg by mouth daily at bedtime (6) Forgetfulness Assessment & Plan: Will D/C depakote as per Dr. Sweeney to see if mentation improves. Status: Acute (7) Livedo Reticularis Consulted Dr De La Fuente- no acute intervention, continue to monitor LE Dopplers negative Monitor (8) Prophylactic measure Assessment & Plan: Pepcid 2mg PO BID Patient is ambulating SCDs Status: Acute PT recommends TCU or [facility]. Patient has no handrails at home and lives in a room on a second floor where patient reports she cannot use walker if provided. Patient has insurance issues with [facility] approval. Case management attempting to seek authorization for [facility]. Managements as per Dr. Lemus. Will DC patient to [facility] after loop recorder is placed, as per Dr. Lemus.
--- NOTE | 2016-09-01 11:23 | CP.PCM.PN ---
<Elen Barriga - Last Filed: 09/01/16 16:03> Subjective - Date & Time of Evaluation Date of Evaluation: 09/01/16 Time of Evaluation: 11:20 - Subjective Subjective: Cardiology. PGY-[address] Clark Pt seen and examined. Answered many questions. Pt understood risk, benefit, goal , and care, and need to follow up after loop recorder replacement. Her main concern is insurance coverage. Related financial concern to onsite case manager and pt industrial relations representative. Objective - Vital Signs/Intake and Output Vital Signs (last 24 hours): Temp Pulse Resp BP Pulse Ox 98.4 F 63 20 97/59 L 96 09/01/16 07:00 09/01/16 07:00 09/01/16 07:00 09/01/16 07:00 09/01/16 07:00 Intake and Output: 09/01/16 09/01/16 06:59 18:59 Intake Total 980 Balance 980 - Medications Medications: Current Medications Aspirin (Ecotrin) 81 mg PO DAILY [facility] Last Admin: 09/01/16 09:20 Dose: 81 mg Clopidogrel Bisulfate (Plavix) 75 mg PO DAILY [facility] Last Admin: 09/01/16 09:20 Dose: 75 mg Famotidine (Pepcid) 20 mg PO BID [facility] Last Admin: 09/01/16 09:20 Dose: 20 mg Folic Acid (Folic Acid) 1 mg PO DAILY [facility] Last Admin: 09/01/16 09:20 Dose: 1 mg Gabapentin (Neurontin) 100 mg PO TID [facility] Last Admin: 09/01/16 09:20 Dose: 100 mg Hydroxyzine HCl (Atarax) 25 mg PO Q6 PRN PRN Reason: Anxiety Last Admin: 08/29/16 01:29 Dose: 25 mg Multivitamins (Hexavitamin) 1 tab PO DAILY [facility] Last Admin: 09/01/16 11:00 Dose: 1 tab Promethazine HCl/Dextromethorphan (Phenergan Dm Syrup) 5 ml PO Q6H PRN PRN Reason: Cough Last Admin: 09/01/16 05:31 Dose: 5 ml Rosuvastatin Calcium (Crestor) 10 mg PO HS [facility] Last Admin: 08/31/16 21:34 Dose: 10 mg Thiamine HCl (Vitamin B1 Tab) 100 mg PO DAILY [facility] Last Admin: 09/01/16 09:20 Dose: 100 mg Trazodone HCl (Desyrel) 50 mg PO HS [facility] Last Admin: 08/31/16 21:34 Dose: 50 mg - Labs Labs: 08/29/16 07:36 08/29/16 07:36 PT 11.1 SECONDS (9.7-12.2) 08/25/16 08:00 INR 1.0 08/25/16 08:00 - Constitutional Appears: No Acute Distress - Head Exam Head Exam: ATRAUMATIC, NORMAL INSPECTION, NORMOCEPHALIC - Eye Exam Eye Exam: EOMI, Normal appearance Pupil Exam: NORMAL ACCOMODATION - ENT Exam ENT Exam: Mucous Membranes Moist - Neck Exam Neck Exam: Full ROM, Normal Inspection. absent: Lymphadenopathy - Respiratory Exam Respiratory Exam: Clear to Ausculation Bilateral, NORMAL BREATHING PATTERN - Cardiovascular Exam Cardiovascular Exam: REGULAR RHYTHM, +S1, +S2. absent: Murmur - GI/Abdominal Exam GI & Abdominal Exam: Soft, Normal Bowel Sounds. absent: Distended, Guarding, Tenderness - Extremities Exam Extremities Exam: Normal Capillary Refill. absent: Calf Tenderness, Pedal Edema - Back Exam Back Exam: absent: CVA tenderness (L), CVA tenderness (R) - Neurological Exam Neurological Exam: Alert, Awake, Normal Gait, Oriented x3 - Psychiatric Exam Psychiatric exam: Anxious, Normal Affect - Skin Skin Exam: Dry, Warm Assessment and Plan - Assessment and Plan (Free Text) Plan: Ischemic stroke r/o cardiogenic causes - loop recorder placement at 2pm today - 2 hours PACU observation recommended. - Wound care - follow up in Dr. Clark office in 1 week [phone] Thickened mitral leaflet - Outpatient Follow up with Dr. Juan or Dr. Clark in their office/clinic or personal sheriff detective - Hemodynamically Stable - Counselled at bedside about cessation of alcohol use - Unlikely 2/2 to Endocarditis - Mccarthy Criteria: 1major, 1 minor- negative (unlikely endocarditis) (2major, 1 major + 3 minor, 5 minor = endocarditis is likely) : Major Criteria- 1 (inconclusive ANTONIO) 1.) Blood Cultures- negative 2.) ANTONIO inconclusive: No New Regurgitant Murmur, Thickened Mitral Valve : Minor Criteria- 1 (possibly related stroke) 1.) Denies IVDU 2.) Afebrile 3.) Vascular Phenomena- Cranial Infarct, unknown if related 4.) No immunologic phenomena (Osler Node, Morrissey Spots, ect.) 5.) Blood Cultures- negative - IV Vancomycin DC - no leukocytosis Continue: - Aspirin 81mg PO daily - Plavix 75mg PO Daily - Crestor 10mg PO HS 08/26/16 Carotid Doppler- mild disease b/l without hemodynamically significant stenosis 08/25/16 ANTONIO- normal left ventricular systolic function with normal EF (66% on echo), no thrombus in left atrial appendage, normal aortic valve, Thickening of Anterior Mitral Valve Leaflet (cannot rule out endocarditis) 08/22/16 Brain MRI- Two adjacent foci of diffusion restriction seen at the left caudate head and adjacent left putamen demonstrate no enhancement or surrounding vasogenic edema. Findings suspicious for acute infarcts. No evidence of enhancing mass lesion in the brain. No evidence of mass effect or midline shift. 08/22/16 CTA Head/Neck- No evidence of hemodynamically significant stenosis in the carotid arteries at the neck or in the intracranial arteries. No evidence of aneurysm or acute pathology 08/21/[address]- No evidence of acute intracranial hemorrhage or acute pathology in the brain. S/R/D/w Dr. Clark <Esther Clark - Last Filed: 10/06/16 04:01> Objective - Vital Signs/Intake and Output Vital Signs (last 24 hours): Temp Pulse Resp BP Pulse Ox 98 F 69 20 125/78 100 09/01/16 16:39 09/01/16 16:39 09/01/16 16:39 09/01/16 16:39 09/01/16 16:39 - Labs Labs: 08/29/16 07:36 08/29/16 07:36 PT 11.1 SECONDS (9.7-12.2) 08/25/16 08:00 INR 1.0 08/25/16 08:00 Assessment and Plan (1) Alcohol withdrawal Status: Acute Attending/Attestation - Attestation I have personally seen and examined this patient.: Yes I have fully participated in the care of the patient.: Yes I have reviewed all pertinent clinical information, including history, physical exam and plan: Yes Notes (Text): 10/06/16 04:01 continue outpt follow up to al loop recorder site c/d/i
[2016-09-01 16:45] VITALS: BP 125/78; PULSE 69; TEMP 98; O2SAT 100
--- NOTE | 2016-09-02 09:33 | EEG ---
DATE: 08/21/2016 The record is obtained for a history of hypokalemia, alcohol withdrawal, new onset seizures and patie nt is 50 years old. The record was obtained while patient was awake and drowsy. The record was symm etrically equal on both sides with a velocity of 7 cycles per second. The waves are fairly formed, f airly organized with posterior distribution, moderate in amplitude, fairly reactive to eye opening. There were no abnormal discharges. No spike, polyspike, no sharp wave, no focal slowing, no paroxysm al discharge. The record did not show any changes with photic stimulation. The hyperventilation was omitted. There are periods of drowsiness, during which attenuation and slowing of the record were s een and theta waves were seen. There were no periods of sleep that were documented. There were eye movement artifacts, muscle movement artifacts and electrode artifacts and sweat artifacts. SUMMARY: This is an abnormal record, significant for generalized slowing. This might be significant with encephalopathy. Clinical correlation is recommended. Taj Maier MD cc: [id number] TT: 09/02/2016 07:54:07 Confirmation # [id number] Dictation # [id number]
--- NOTE | 2016-09-19 11:26 | DS ---
The patient chief complaint weakness, fatigue, . The patient received physical therapy, s howed improvement, transferred to rehab. DIAGNOSIS: Acute cerebrovascular accident, thrombotic. Carloine Vang MD cc: [id number] TT: 09/19/2016 10:15:27 en 09/23/2016 07:15:37
--- NOTE | 2016-10-06 07:02 | OP ---
PROCEDURE DATE: 09/01/2016 INDICATIONS: Syncope, negative tilt table test. PROCEDURE: Implantation of a loop recorder under sterile drape and sterile dressing. Anesthesia was placed at the fourth intercostal space, lateral to the . Had antibiotics running for an hour. It was decided to inject subcutaneously. The loop monitor was successfully placed in the fourth int ercostal space without any complications. The patient did well and returned back to the same day are a with no complications. Successful implantation of a loop recorder on the date of 09/01/2016. PROCEDURE DATE: 09/01/2016. IMPRESSION: Implantation of loop recorder, successful. Esther Clark MD cc: [id number] TT: 10/06/2016 01:31:46 mn
== END 2016-09-01 20:50 | DRG 64 ==
LOC: C.ER 16:43 → C.9E 18:22 → C.6T 20:00 → OBSVTOIN 08-22 10:30
PROVIDERS: ADMIT Internal Medicine Pulmonary Disease; ATTEND Internal Medicine Pulmonary Disease
PROC: HZ2ZZZZ Detoxification Services for Substance Abuse Treatment (ICD-10-PCS; principal; 2016-08-22)
PROC: HZ42ZZZ Group Counseling for Substance Abuse Treatment, Cognitive-Behavioral (ICD-10-PCS; 2016-08-22)
PROC: HZ32ZZZ Individual Counseling for Substance Abuse Treatment, Cognitive-Behavioral (ICD-10-PCS; 2016-08-22)
PROC: HZ46ZZZ Group Counseling for Substance Abuse Treatment, Psychoeducation (ICD-10-PCS; 2016-08-22)
PROC: HZ36ZZZ Individual Counseling for Substance Abuse Treatment, Psychoeducation (ICD-10-PCS; 2016-08-22)
PROC: HZ59ZZZ Individual Psychotherapy for Substance Abuse Treatment, Supportive (ICD-10-PCS; 2016-08-22)
PROC: B24BZZ4 Ultrasonography of Heart with Aorta, Transesophageal (ICD-10-PCS; 2016-08-25)
DX: I63.8 Other cerebral infarction (principal); G93.6 Cerebral edema; F10.231 Alcohol dependence with withdrawal delirium; I38 Endocarditis, valve unspecified; F10.288 Alcohol dependence with other alcohol-induced disorder; G40.509 Epileptic seizures related to external causes, not intractable, without status epilepticus; M79.7 Fibromyalgia; Y90.9 Presence of alcohol in blood, level not specified; E87.6 Hypokalemia; F41.9 Anxiety disorder, unspecified; F31.9 Bipolar disorder, unspecified; R23.1 Pallor; Z91.81 History of falling; R53.1 Weakness

== ENCOUNTER 2016-09-17 18:16 | Observation (INO) | payer MEDICARE ==
--- NOTE | 2016-09-17 19:35 | C.PDOC ---
History Of Present Illness 50 year old patient, with a past medical history of anxiety, depression, and fibromyalgia; social history of alcohol abuse, presents to the ED for acute alcohol intoxication. Patient states she was recently hospitalized for a seizure and she had a stroke at that time as well. She was diagnosed with a cardiac valve issue. Patient was admitted to rehab. Patient was sent home 2 days ago. Today, she went out to celebrate with friends which involved drinking alcohol. Patient denies any suicidal ideation, homicidal ideation, or any other complaints. Time Seen by Provider: 09/17/16 19:18 Chief Complaint (Nursing): Substance Abuse History Per: Patient History/Exam Limitations: intoxication Onset/Duration Of Symptoms: Days (yesterday) Current Symptoms Are (Timing): Still Present Suicide/Self Injury Attempted (Context): None Modifying Factor(s): Alcohol Severity: None Pain Scale Rating Of: 0 Recent travel outside of the [place]: No Past Medical History Reviewed: Historical Data, Nursing Documentation, Vital Signs Vital Signs: Last Vital Signs Temp 97.2 F L 09/17/16 18:21 Pulse 75 09/17/16 18:21 Resp 18 09/17/16 18:21 BP 115/73 09/17/16 18:21 Pulse Ox 99 09/17/16 21:26 - Medical History PMH: Anxiety, Depression, Fibromyalgia - [facility] Procedures DETOXIFICATION SERVICES FOR SUBSTANCE ABUSE TREATMENT (08/22/16) GROUP DELPHI PROGRAMMER FOR SUBSTANCE ABUSE TREATMENT, PSYCHOEDUCATION (08/22/16) GROUP DELPHI PROGRAMMER FOR SUBSTANCE ABUSE, COGNITIVE BEHAVIORAL (08/22/16) INDIV DELPHI PROGRAMMER FOR SUBSTANCE ABUSE TREATMENT, PSYCHOEDUCATION (08/22/16) INDIV DELPHI PROGRAMMER FOR SUBSTANCE ABUSE, COGNITIVE BEHAVIORAL (08/22/16) INDIV PSYCHOTHERAPY FOR SUBSTANCE ABUSE TREATMENT, SUPPORT (08/22/16) ULTRASONOGRAPHY OF HEART WITH AORTA, TRANSESOPHAGEAL (08/22/16) Family History: States: Unknown Family Hx - Social History Hx Tobacco Use: No Hx Alcohol Use: Yes (socially) Hx Substance Use: No - Immunization History Hx Tetanus Toxoid Vaccination: No Hx Influenza Vaccination: No Hx Pneumococcal Vaccination: Yes Review Of Systems Except As Marked, All Systems Reviewed And Found Negative. Constitutional: Positive for: Other (intoxication). Negative for: Fever Respiratory: Negative for: Shortness of Breath Psych: Negative for: Suicidal ideation, Other (homicidal ideation) Physical Exam - Physical Exam Appears: Non-toxic, No Acute Distress, Other (intoxicated) Skin: Warm, Dry Head: Atraumatic, Normacephalic Neck: Normal ROM, Supple Chest: Symmetrical Cardiovascular: Rhythm Regular Respiratory: Normal Breath Sounds, No Rales, No Rhonchi, No Wheezing Gastrointestinal/Abdominal: Soft, No Tenderness Back: Normal Inspection, No CVA Tenderness Extremity: Normal ROM Neurological/Psych: Oriented x3, Other (slurred speech) ED Course And Treatment - Laboratory Results Result Diagrams: 09/17/16 19:49 09/17/16 19:49 Lab Interpretation: Abnormal (ETOH 296) O2 Sat by Pulse Oximetry: 99 (room air) Pulse Ox Interpretation: Normal Reevaluation Time: 23:38 Reassessment Condition: Unchanged (Patient still intoxicated and slurring her speech. Resting quietly. Spoke with sister who will return in the morning.) Medical Decision Making Medical Decision Making: Plan: * Labs ED OBSERVATION Date of observation admission: 09/17/16 Time of observation admission: 21:25 - Observation admission statement Patient is being placed in observation because:: alcohol intoxication - Goals of Observation Goals of observation are:: sobriety - Progress Note Progress Note: 09/17/16 23:40 Patient continuing to rest quietly. Disposition - Disposition Disposition Time: 12:45 Condition: STABLE - Clinical Impression Clinical Impression: Alcohol intoxication - Scribe Statement The provider has reviewed the documentation as recorded by the Scribe Marga Durant Provider Attestation: All medical record entries made by the Scribe were at my direction and personally dictated by me. I have reviewed the chart and agree that the record accurately reflects my personal performance of the history, physical exam, medical decision making, and the department course for this patient. I have also personally directed, reviewed, and agree with the discharge instructions and disposition. Physician Patient Turnover Patient Signed Over To: Shabbir Melgar Handoff Comments: penidng sobriety
[2016-09-17 20:00] LABS: BASO # 0.1 K/uL (0.0-0.2); BASO % 1.3 % (0.0-2.0); EOS # 0.1 K/uL (0.0-0.7); EOS % 1.2 % (0.0-4.0); HEMATOCRIT 40.7 % (34.0-47.0); LYMPH # 3.9 K/uL (1.0-4.3); LYMPH % 47.8 % (20.0-40.0); MEAN CORPUSCULAR HEMOGLOBIN 31.9 pg (27.0-31.0); MEAN CORPUSCULAR HGB CONC 33.6 g/dL (33.0-37.0); MEAN PLATELET VOLUME 8.8 fL (7.2-11.7); MONO # 0.5 K/uL (0.0-0.8); MONO % 5.6 % (0.0-10.0); RED CELL DISTRIBUTION WIDTH 14.2 % (11.5-14.5)
[2016-09-17 20:10] LABS: CHLORIDE 103 mmol/L (98-107); SODIUM 145 mmol/L (132-148)
[2016-09-17 20:11] LABS: WHITE BLOOD COUNT 8.2 K/uL (4.8-10.8)
[2016-09-17 20:12] LABS: GFR AFRICAN-AMERICAN > 60; MEAN CELL VOLUME 94.9 fL (81.0-99.0)
[2016-09-17 20:13] LABS: ALB/GLOB RATIO 1.3 (1.0-2.1); ALKALINE PHOSPHATASE 59 U/L (38-126); ALT/SGPT 23 U/L (9-52); AST/SGOT 49 U/L (14-36); BILIRUBIN,TOTAL 0.5 mg/dL (0.2-1.3); BLOOD UREA NITROGEN 6 mg/dL (7-17); CALCIUM 8.7 mg/dl (8.6-10.4); CARBON DIOXIDE 27 mmol/L (22-30); GLUCOSE,RANDOM 85 mg/dL (65-105); TOTAL PROTEIN 8.4 g/dL (6.3-8.3)
[2016-09-17 20:14] LABS: ALCOHOL SERUM 296 mg/dl (0-10)
[2016-09-17 20:44] LABS: RBC URINE 3 /hpf (0-3); URINE BACTERIA RARE (<OCC); URINE BILIRUBIN NEGATIVE (NEGATIVE); URINE BLOOD NEGATIVE (NEGATIVE); URINE COLOR Yellow (YELLOW); URINE GLUCOSE (UA) NORMAL (Normal); URINE KETONE TRACE mg/dL (NEGATIVE); URINE LEUKOCYTE ESTERASE NEG Leu/uL (Negative); URINE PROTEIN NEGATIVE (NEGATIVE); URINE UROBILINOGEN NORMAL mg/dL (0.2-1.0); WBC URINE 1 /hpf (0-5)
[2016-09-18 02:38] VITALS: O2SAT 98
[2016-09-18 06:25] VITALS: BP 108/68; PULSE 74; RESP 18; TEMP 97.8
== END 2016-09-18 04:55 | disposition home or self-care (01) ==
LOC: C.ER 18:16 → C.9OBSV 21:25
PROVIDERS: ADMIT Emergency Medicine; ATTEND Emergency Medicine
DX: F10.120 Alcohol abuse with intoxication, uncomplicated (principal); F41.9 Anxiety disorder, unspecified; F32.9 Major depressive disorder, single episode, unspecified; M79.7 Fibromyalgia; Y90.8 Blood alcohol level of 240 mg/100 ml or more
CPT/HCPCS: 80053; 80164; 81001; 82948; 85025; G0378; G0480

== ENCOUNTER 2016-09-28 10:28 | Emergency (ER) | payer MEDICARE | END 2016-09-28 10:45 | disposition left against medical advice (07) | LOC: C.ER 10:28 | DX: Z02.89 Encounter for other administrative examinations (principal); F10.10 Alcohol abuse, uncomplicated ==

== ENCOUNTER 2016-09-28 23:05 | Emergency (ER) | payer MEDICARE ==
--- NOTE | 2016-09-28 23:48 | C.PDOC ---
Time Seen by Provider: 09/28/16 23:47 Chief Complaint (Nursing): Chest Pain Past Medical History - Medical History PMH: Anxiety, Depression, Fibromyalgia Denies: Chronic Kidney Disease - [facility] Procedures DETOXIFICATION SERVICES FOR SUBSTANCE ABUSE TREATMENT (08/22/16) GROUP SYNCHRONIZER FOR SUBSTANCE ABUSE TREATMENT, PSYCHOEDUCATION (08/22/16) GROUP SYNCHRONIZER FOR SUBSTANCE ABUSE, COGNITIVE BEHAVIORAL (08/22/16) INDIV SYNCHRONIZER FOR SUBSTANCE ABUSE TREATMENT, PSYCHOEDUCATION (08/22/16) INDIV SYNCHRONIZER FOR SUBSTANCE ABUSE, COGNITIVE BEHAVIORAL (08/22/16) INDIV PSYCHOTHERAPY FOR SUBSTANCE ABUSE TREATMENT, SUPPORT (08/22/16) ULTRASONOGRAPHY OF HEART WITH AORTA, TRANSESOPHAGEAL (08/22/16) Family History: States: Unknown Family Hx - Social History Hx Tobacco Use: No Hx Alcohol Use: Yes (socially) Hx Substance Use: No - Immunization History Hx Tetanus Toxoid Vaccination: No Hx Influenza Vaccination: No Hx Pneumococcal Vaccination: Yes Disposition Counseled Patient/Family Regarding: Studies Performed, Diagnosis - Disposition Disposition Time: 23:47
--- NOTE | 2016-09-28 23:50 | C.PDOC ---
Time Seen by Provider: 09/28/16 23:47 Chief Complaint (Nursing): Chest Pain Past Medical History - Medical History PMH: Anxiety, Depression, Fibromyalgia Denies: Chronic Kidney Disease - [facility] Procedures DETOXIFICATION SERVICES FOR SUBSTANCE ABUSE TREATMENT (08/22/16) GROUP DIGESTION OPERATOR FOR SUBSTANCE ABUSE TREATMENT, PSYCHOEDUCATION (08/22/16) GROUP DIGESTION OPERATOR FOR SUBSTANCE ABUSE, COGNITIVE BEHAVIORAL (08/22/16) INDIV DIGESTION OPERATOR FOR SUBSTANCE ABUSE TREATMENT, PSYCHOEDUCATION (08/22/16) INDIV DIGESTION OPERATOR FOR SUBSTANCE ABUSE, COGNITIVE BEHAVIORAL (08/22/16) INDIV PSYCHOTHERAPY FOR SUBSTANCE ABUSE TREATMENT, SUPPORT (08/22/16) ULTRASONOGRAPHY OF HEART WITH AORTA, TRANSESOPHAGEAL (08/22/16) Family History: States: Unknown Family Hx - Social History Hx Tobacco Use: No Hx Alcohol Use: Yes (socially) Hx Substance Use: No - Immunization History Hx Tetanus Toxoid Vaccination: No Hx Influenza Vaccination: No Hx Pneumococcal Vaccination: Yes Disposition Counseled Patient/Family Regarding: Studies Performed, Diagnosis - Disposition Disposition Time: 23:50
--- NOTE | 2016-09-28 23:51 | C.PDOC ---
History Of Present Illness Pt presents with some headache and chest discomfort after binge drinking for the last 2-3 days "for her birthday" Family at bedside and history is HIPAA compliant. Dull aching headache. NO f/c/n/v/ Speaking in complete sentences Time Seen by Provider: 09/28/16 23:47 Chief Complaint (Nursing): Chest Pain History Per: Patient, Family History/Exam Limitations: no limitations Onset/Duration Of Symptoms: Days Current Symptoms Are (Timing): Still Present Severity: Moderate Pain Scale Rating Of: 4 Context: headache Quality: dull Reports Similar Symptoms Of: yes Reports Recently: Seen In ED, Treated By A Physician, Hospitalized Recent travel outside of the [place]: No Additional History Per: Family Past Medical History Reviewed: Historical Data, Nursing Documentation, Vital Signs Vital Signs: Last Vital Signs Temp 98.3 F 09/29/16 01:34 Pulse 103 H 09/29/16 01:34 Resp 15 09/29/16 01:34 BP 102/52 L 09/29/16 01:34 Pulse Ox 96 09/29/16 01:34 - Medical History PMH: Anxiety, Depression, Fibromyalgia Denies: Chronic Kidney Disease - [facility] Procedures DETOXIFICATION SERVICES FOR SUBSTANCE ABUSE TREATMENT (08/22/16) GROUP PRISM INSPECTOR FOR SUBSTANCE ABUSE TREATMENT, PSYCHOEDUCATION (08/22/16) GROUP PRISM INSPECTOR FOR SUBSTANCE ABUSE, COGNITIVE BEHAVIORAL (08/22/16) INDIV PRISM INSPECTOR FOR SUBSTANCE ABUSE TREATMENT, PSYCHOEDUCATION (08/22/16) INDIV PRISM INSPECTOR FOR SUBSTANCE ABUSE, COGNITIVE BEHAVIORAL (08/22/16) INDIV PSYCHOTHERAPY FOR SUBSTANCE ABUSE TREATMENT, SUPPORT (08/22/16) ULTRASONOGRAPHY OF HEART WITH AORTA, TRANSESOPHAGEAL (08/22/16) Family History: States: No Known Family Hx - Social History Hx Tobacco Use: No Hx Alcohol Use: Yes (socially) Hx Substance Use: No - Immunization History Hx Tetanus Toxoid Vaccination: No Hx Influenza Vaccination: No Hx Pneumococcal Vaccination: Yes Review Of Systems Constitutional: Negative for: Fever, Chills Eyes: Negative for: Vision Change ENT: Negative for: Throat Pain Cardiovascular: Positive for: Chest Pain. Negative for: Palpitations Respiratory: Negative for: Shortness of Breath Gastrointestinal: Negative for: Nausea, Vomiting, Abdominal Pain Genitourinary: Negative for: Dysuria Musculoskeletal: Negative for: Back Pain Skin: Negative for: Rash, Lesions, Jaundice, Bruising Neurological: Positive for: Headache. Negative for: Weakness Psych: Positive for: Anxiety Physical Exam - Physical Exam Appears: Non-toxic Skin: Warm, Dry Head: Atraumatic Eye(s): bilateral: Normal Inspection Oral Mucosa: Moist Neck: Trachea Midline, Supple Chest: Symmetrical, Other (implantible recorder sternum) Cardiovascular: Rhythm Regular Respiratory: No Rales, No Rhonchi, No Wheezing Gastrointestinal/Abdominal: Soft, No Tenderness, No Distention Back: Normal Inspection Extremity: Normal ROM Extremity: Bilateral: Atraumatic, Normal Color And Temperature Neurological/Psych: Oriented x3, Normal Speech, Normal Cognition Gait: Unsteady (due to alcohol imbibition) ED Course And Treatment - Laboratory Results Result Diagrams: 09/28/16 23:58 09/28/16 23:58 ECG: Interpreted By Me, Viewed By Me ECG Rhythm: Sinus Rhythm (64), Nonspecific Changes O2 Sat by Pulse Oximetry: 96 Pulse Ox Interpretation: Normal - Radiology CXR: Interpreted by Me, Viewed By Me Progress Note: pt was given informationabout detox programs Reevaluation Time: 02:18 Reassessment Condition: Improved NIHSS Stroke Scale - Date/Time Evaluation Performed Date Performed: 09/28/16 Time Performed: 23:28 When Was NIHSS Performed: Baseline - How Severe is the Stroke Level of Consciousness: 0=Alert LOC to Questions: 0=Both comments correct LOC to commands: 0=Obeys both correctly Best Gaze: 0=Normal Visual: 0=No visual loss Facial: 0=Normal Motor Arm - Left: 0=No drift Motor Arm - Right: 0=No drift Motor Leg - Left: 0=No drift Motor Leg - Right: 0=No drift Limb Ataxia: 0=Absent Sensory: 0=Normal Best Language: 0=No aphasia Dysarthia: 0=Normal articulation Extinction & Inattention (Neglect): 0=Normal, no object Score: 0 Disposition Counseled Patient/Family Regarding: Studies Performed, Diagnosis, Need For Followup - Disposition Referrals: Sebastian Soler MD [Medical Doctor] - Disposition: HOME/ ROUTINE Disposition Time: 23:51 Condition: FAIR Instructions: Alcohol Intoxication (DC), Acute Headache (DC) - Clinical Impression Clinical Impression: Alcohol intoxication, Headache
[2016-09-29 00:03] LABS: BASO # 0.1 K/uL (0.0-0.2); EOS # 0.2 K/uL (0.0-0.7)
[2016-09-29 00:07] LABS: BASO % 1.1 % (0.0-2.0); HEMATOCRIT 34.1 % (34.0-47.0); LYMPH # 4.7 K/uL (1.0-4.3); LYMPH % 57.5 % (20.0-40.0); MEAN CELL VOLUME 94.9 fL (81.0-99.0); MEAN CORPUSCULAR HEMOGLOBIN 32.4 pg (27.0-31.0); MEAN CORPUSCULAR HGB CONC 34.1 g/dL (33.0-37.0); MONO # 0.5 K/uL (0.0-0.8); MONO % 6.5 % (0.0-10.0); RED CELL DISTRIBUTION WIDTH 14.5 % (11.5-14.5); WHITE BLOOD COUNT 8.1 K/uL (4.8-10.8)
[2016-09-29 00:13] LABS: CHLORIDE 101 mmol/L (98-107)
[2016-09-29 00:14] LABS: POTASSIUM 4.1 mmol/L (3.6-5.2); SODIUM 141 mmol/L (132-148)
[2016-09-29 00:16] LABS: ALB/GLOB RATIO 1.3 (1.0-2.1); ALKALINE PHOSPHATASE 52 U/L (38-126); AST/SGOT 38 U/L (14-36); BILIRUBIN,TOTAL 0.4 mg/dL (0.2-1.3); CARBON DIOXIDE 26 mmol/L (22-30); GFR AFRICAN-AMERICAN > 60; TOTAL PROTEIN 7.7 g/dL (6.3-8.3)
[2016-09-29 00:17] LABS: ALT/SGPT 23 U/L (9-52); BLOOD UREA NITROGEN 13 mg/dL (7-17); CALCIUM 8.3 mg/dl (8.6-10.4); GLUCOSE,RANDOM 82 mg/dL (65-105)
[2016-09-29 00:17] LABS: RBC URINE 2 /hpf (0-3); URINE BACTERIA RARE (<OCC); URINE BILIRUBIN NEGATIVE (NEGATIVE); URINE BLOOD NEGATIVE (NEGATIVE); URINE COLOR Yellow (YELLOW); URINE GLUCOSE (UA) NORMAL (Normal); URINE KETONE TRACE mg/dL (NEGATIVE); URINE LEUKOCYTE ESTERASE NEG Leu/uL (Negative); URINE PROTEIN NEGATIVE (NEGATIVE); URINE UROBILINOGEN NORMAL mg/dL (0.2-1.0); WBC URINE 2 /hpf (0-5)
--- NOTE | 2016-09-29 00:19 | CT ---
EXAM: CT Head Without Intravenous Contrast CLINICAL HISTORY: 51 years old, female; Pain; Headache; Headache not specified; Additional info: R/O bleed, HX of CVA TECHNIQUE: Axial computed tomography images of the head/brain without intravenous contrast. This CT exam was performed using one or more of the following dose reduction techniques: automated exposure control, adjustment of the mA and/or kV according to patient size, and/or use of iterative reconstruction technique. COMPARISON: CTA HEAD NECK BUNDLE 08/23/2016 2:11:28 PM FINDINGS: Brain: No acute intracranial hemorrhage. No significant white matter disease. No edema. A small focus of decreased attenuation is identified within the left basal ganglia, possibly prior lacunar infarct. This is unchanged from 08/23/2016. Ventricles: No significant ventriculomegaly. Bones: No acute displaced fracture. Sinuses: Unremarkable as visualized. No acute sinusitis. Mastoid air cells: Unremarkable as visualized. No mastoid effusion. IMPRESSION: No acute intracranial hemorrhage, or suspicious mass effect.
[2016-09-29 00:46] LABS: ALCOHOL SERUM 356 mg/dl (0-10)
[2016-09-29 02:45] VITALS: BP 109/68; PULSE 91; RESP 20; TEMP 97.8; O2SAT 100
== END 2016-09-29 02:49 | disposition home or self-care (01) ==
LOC: C.ER 23:05
DX: R51 Headache (principal); F10.129 Alcohol abuse with intoxication, unspecified; Y90.8 Blood alcohol level of 240 mg/100 ml or more
CPT/HCPCS: 70450; 80053; 81001; 83690; 84484; 85025; 85730; 96374; 99285; G0480; J1885

== ENCOUNTER 2016-10-24 06:45 | Day surgery (SDC) | payer MEDICARE ==
[2016-10-21 09:19] VITALS: BMI 23.9
[2016-10-24] MEDS ORDERED: Midazolam 2 MG/2 ML VIAL ONE (09:28)
[2016-10-24] MEDS ORDERED: Sodium Chloride 0.9% 500 ML IV SCH (10:02)
--- NOTE | 2016-10-24 10:02 | CP.PCM.CON ---
History of Present Illness - History of Present Illness History of Present Illness: Patient s/p Cath 1. Normal coronaries 2. 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 HX: ABNORMAL STRESS TEST 06/19/16 - PULMONARY Hx Respiratory Disorders: No - NEUROLOGICAL Hx Neurological Disorder: Yes Hx Seizures: Yes - HEENT Hx HEENT Problems: No - RENAL Hx Chronic Kidney Disease: No - ENDOCRINE/METABOLIC Hx Endocrine Disorders: No - HEMATOLOGICAL/ONCOLOGICAL Hx Blood Disorders: No - INTEGUMENTARY Hx Dermatological Problems: No - MUSCULOSKELETAL/RHEUMATOLOGICAL Hx Musculoskeletal Disorders: Yes Hx Falls: No Hx Osteoarthritis: Yes Other/Comment: HX: sciatica - GASTROINTESTINAL Hx Gastrointestinal Disorders: No - GENITOURINARY/GYNECOLOGICAL Hx Genitourinary Disorders: No - PSYCHIATRIC Hx Psychophysiologic Disorder: Yes Hx Anxiety: Yes Hx Depression: Yes Other/Comment: HX: ALCOHOL ABUSE PER DR. [facility]'S NOTES - SURGICAL HISTORY Hx Surgeries: Yes Hx Section: Yes Hx Orthopedic Surgery: Yes (Right Knee) Other/Comment: HX:Rt knee surgery - ANESTHESIA Hx Anesthesia: Yes Hx Anesthesia Reactions: No Meds Allergies/Adverse Reactions: Allergies Allergy/AdvReac Type Severity Reaction Status Date / Time No Known Allergies Allergy Verified 08/20/16 16:51
[2016-10-24] MEDS ORDERED: Sodium Chloride 0.9% 500 ML IV ONE (10:31)
[2016-10-24 15:03] VITALS: BP 113/64; PULSE 71; RESP 15; TEMP 97.8; O2SAT 99
== END 2016-10-24 14:12 | disposition home or self-care (01) ==
LOC: C.CATHLAB 06:45
PROVIDERS: ATTEND Internal Medicine Cardiovascular Disease
DX: R94.39 Abnormal result of other cardiovascular function study (principal); R07.89 Other chest pain; I67.2 Cerebral atherosclerosis
CPT/HCPCS: 93458; 94770; C1760; C1769; C1887; J1644; J2250; J3010; J7040; Q9967

== ENCOUNTER 2016-11-04 23:58 | Observation (INO) | payer MEDICARE ==
[2016-11-04 23:58] VITALS: BMI 23.9
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
[2016-11-05 00:54] LABS: HCG,QUALITATIVE URINE NEGATIVE (NEGATIVE); SQUAMOUS EPITHIAL < 1 /hpf (0-5); URINE BILIRUBIN NEGATIVE (NEGATIVE); URINE BLOOD NEGATIVE (NEGATIVE); URINE CLARITY Clear (Clear); URINE COLOR Yellow (YELLOW); URINE GLUCOSE (UA) NORMAL (Normal); URINE LEUKOCYTE ESTERASE NEG Leu/uL (Negative); URINE NITRATE NEGATIVE (NEGATIVE); URINE PROTEIN NEGATIVE (NEGATIVE); URINE UROBILINOGEN NORMAL mg/dL (0.2-1.0)
[2016-11-05 05:53] VITALS: RESP 16; TEMP 97.6
[2016-11-05 07:17] VITALS: BP 131/86; PULSE 83; O2SAT 100
== END 2016-11-05 07:12 | disposition home or self-care (01) ==
LOC: C.ER 23:58 → C.9OBSV 11-05 00:54
PROVIDERS: ADMIT Emergency Medicine; ATTEND Emergency Medicine
DX: F10.120 Alcohol abuse with intoxication, uncomplicated (principal); Y90.8 Blood alcohol level of 240 mg/100 ml or more
CPT/HCPCS: 81001; 82948; 84703; 99285; G0378; G0480

== ENCOUNTER 2016-12-10 07:54 | Inpatient (IN) | payer MEDICARE ==
[2016-12-10 07:55] VITALS: BMI 23.9
--- NOTE | 2016-12-10 08:35 | C.PDOC ---
History Of Present Illness 51 y/o female presents to ED with c/o headache and bruising. Patient reports past history of stroke. She states that she has not been taking any of her regular medications for 1 week. Also reports history of etoh abuse; admits to drinking yesterday. Denies fever, chills, chest pain, SOB, nausea, vomiting, or other associated symptoms. Time Seen by Provider: 12/10/16 07:56 Chief Complaint (Nursing): Headache History Per: Patient History/Exam Limitations: no limitations Current Symptoms Are (Timing): Still Present Recent travel outside of the [place]: No Past Medical History Reviewed: Historical Data, Nursing Documentation, Vital Signs Vital Signs: Last Vital Signs Temp 98.1 F 12/10/16 07:58 Pulse 101 H 12/10/16 10:51 Resp 18 12/10/16 10:51 BP 129/72 12/10/16 10:51 Pulse Ox 100 12/10/16 10:51 - Medical History PMH: Anxiety, Depression, Fibromyalgia, Hypercholesterolemia, Seizures - [facility] Procedures DETOXIFICATION SERVICES FOR SUBSTANCE ABUSE TREATMENT (08/22/16) GROUP APPLICATION DEVELOPMENT SPECIALIST FOR SUBSTANCE ABUSE TREATMENT, PSYCHOEDUCATION (08/22/16) GROUP APPLICATION DEVELOPMENT SPECIALIST FOR SUBSTANCE ABUSE, COGNITIVE BEHAVIORAL (08/22/16) INDIV APPLICATION DEVELOPMENT SPECIALIST FOR SUBSTANCE ABUSE TREATMENT, PSYCHOEDUCATION (08/22/16) INDIV APPLICATION DEVELOPMENT SPECIALIST FOR SUBSTANCE ABUSE, COGNITIVE BEHAVIORAL (08/22/16) INDIV PSYCHOTHERAPY FOR SUBSTANCE ABUSE TREATMENT, SUPPORT (08/22/16) ULTRASONOGRAPHY OF HEART WITH AORTA, TRANSESOPHAGEAL (08/22/16) Family History: States: Unknown Family Hx - Social History Hx Tobacco Use: No Hx Alcohol Use: Yes (socially) - Immunization History Hx Tetanus Toxoid Vaccination: No Hx Influenza Vaccination: No Hx Pneumococcal Vaccination: No Review Of Systems Except As Marked, All Systems Reviewed And Found Negative. Constitutional: Negative for: Fever, Chills Cardiovascular: Negative for: Chest Pain, Palpitations Respiratory: Negative for: Shortness of Breath Gastrointestinal: Negative for: Nausea, Vomiting Skin: Positive for: Bruising. Negative for: Rash Neurological: Positive for: Headache. Negative for: Weakness, Numbness, Dizziness Physical Exam - Physical Exam Appears: Non-toxic, No Acute Distress, Other (awake, alert) Skin: Normal Color, Warm, Dry Head: Atraumatic, Normacephalic Eye(s): bilateral: Normal Inspection, PERRL, EOMI Oral Mucosa: Moist Neck: Normal ROM, Supple Chest: Symmetrical Cardiovascular: Rhythm Regular Respiratory: Normal Breath Sounds, No Rales, No Rhonchi, No Wheezing Gastrointestinal/Abdominal: Soft, No Tenderness Back: Normal Inspection Extremity: Normal ROM, Capillary Refill (< 2 sec. ), Other (bruising bilateral arms) Pulses: Left Radial: Normal, Right Radial: Normal Neurological/Psych: Oriented x3, Normal Speech, Normal Cognition, Normal Motor, Normal Sensation ED Course And Treatment - Laboratory Results Result Diagrams: 12/10/16 08:44 12/10/16 08:44 Lab Interpretation: No Acute Changes ECG: Interpreted By Me ECG Rhythm: Sinus Rhythm, Nonspecific Changes ECG Interpretation: No Acute Changes Rate From EC O2 Sat by Pulse Oximetry: 99 (RA) Pulse Ox Interpretation: Normal - Radiology CXR: Viewed By Me, Read By Radiologist CXR Interpretation: Yes: No Acute Disease - CT Scan/US CT Head Other Rad Studies (CT/US): Read By Radiologist, Radiology Report Reviewed CT/US Interpretation: FINDINGS: HEMORRHAGE: No intracranial hemorrhage. BRAIN : No mass effect or edema. Several small old left basal ganglia lacunar infarcts unchanged from prior examination. No evidence of acute infarct. VENTRICLES: Unremarkable. No hydrocephalus. CALVARIUM: Unremarkable. PARANASAL SINUSES: Unremarkable as visualized. No significant inflammatory changes. MASTOID AIR CELLS: Unremarkable as visualized. No inflammatory changes. OTHER FINDINGS: None. IMPRESSION: No intracranial mass, hemorrhage or evidence of acute infarct. Several small old left basal ganglia lacunar infarcts. Progress Note: Head CT, EKG, bloodwork, CxR ordered and reviewed. Treated with ativan 1 mg IV for seizure activity Reassessment Condition: Improved - Physician Consult Information Physician Contacted: Jose Juan Sanchez Jr. Outcome Of Conversation: admit Disposition Discussed With : Jose Juan Sanchez Jr. Doctor Will See Patient In The: Hospital - Disposition Disposition: HOSPITALIZED Disposition Time: 10:30 Condition: STABLE - POA Present On Arrival: None - Clinical Impression Clinical Impression: Headache, Seizure disorder, Alcohol withdrawal, Chest pain - PA / LEGAL DIRECTOR / Resident Statement MD/DO has reviewed & agrees with the documentation as recorded. - Scribe Statement The provider has reviewed the documentation as recorded by the Scribe SM All medical record entries made by the Scribe were at my direction and personally dictated by me. I have reviewed the chart and agree that the record accurately reflects my personal performance of the history, physical exam, medical decision making, and the department course for this patient. I have also personally directed, reviewed, and agree with the discharge instructions and disposition. Decision To Admit - Pt Status Changed To: Hospital Disposition Of: Inpatient - Admit Certification Admit to Inpatient:: After my assessment, the patient will require hospitalization for at least two midnights. This is because of the severity of symptoms shown, intensity of services needed, and/or the medical risk in this patient being treated as an outpatient. - InPatient: Physician Admission Certification: I certify that this patient requires 2 or more midnights of care for the following reason:: Chest Pain. Alcohol Abuse. Seizure. Headache - . Bed Request Type: Telemetry Admitting Physician: Jose Juan Sanchez Jr. Patient Diagnosis: Headache, Seizure disorder, Alcohol withdrawal, Chest pain
[2016-12-10 08:52] LABS: BASO % 0.6 % (0.0-2.0); EOS # 0.1 K/uL (0.0-0.7); EOS % 1.1 % (0.0-4.0); HEMATOCRIT 36.2 % (34.0-47.0); LYMPH # 1.1 K/uL (1.0-4.3); LYMPH % 22.8 % (20.0-40.0); MEAN CORPUSCULAR HEMOGLOBIN 30.1 pg (27.0-31.0); MEAN CORPUSCULAR HGB CONC 33.1 g/dL (33.0-37.0); MEAN PLATELET VOLUME 7.7 fL (7.2-11.7); MONO # 0.4 K/uL (0.0-0.8); MONO % 8.1 % (0.0-10.0); RED CELL DISTRIBUTION WIDTH 14.9 % (11.5-14.5); WHITE BLOOD COUNT 4.7 K/uL (4.8-10.8)
[2016-12-10 08:57] LABS: INR 0.9
[2016-12-10 08:58] LABS: CHLORIDE 96 mmol/L (98-107)
[2016-12-10 08:59] LABS: POTASSIUM 3.1 mmol/L (3.6-5.2); SODIUM 138 mmol/L (132-148)
[2016-12-10 09:01] LABS: BILIRUBIN,TOTAL 0.6 mg/dL (0.2-1.3); CARBON DIOXIDE 29 mmol/L (22-30); GFR AFRICAN-AMERICAN > 60
[2016-12-10 09:02] LABS: ALB/GLOB RATIO 1.1 (1.0-2.1); ALKALINE PHOSPHATASE 77 U/L (38-126); ALT/SGPT 30 U/L (9-52); AST/SGOT 51 U/L (14-36); BLOOD UREA NITROGEN 10 mg/dL (7-17); CALCIUM 8.6 mg/dl (8.6-10.4); GLUCOSE,RANDOM 93 mg/dL (65-105); TOTAL PROTEIN 8.4 g/dL (6.3-8.3)
[2016-12-10 09:03] LABS: ALCOHOL SERUM 41 mg/dl (0-10)
--- NOTE | 2016-12-10 09:33 | CT ---
PROCEDURE: CT HEAD WITHOUT CONTRAST. HISTORY: headache COMPARISON: None available. TECHNIQUE: Axial computed tomography images were obtained through the head/brain without intravenous contrast. Radiation dose: Total exam DLP = 859.11 mGy-cm. This CT exam was performed using one or more of the following dose reduction techniques: Automated exposure control, adjustment of the mA and/or kV according to patient size, and/or use of iterative reconstruction technique. FINDINGS: HEMORRHAGE: No intracranial hemorrhage. BRAIN: No mass effect or edema. Several small old left basal ganglia lacunar infarcts unchanged from prior examination. No evidence of acute infarct. VENTRICLES: Unremarkable. No hydrocephalus. CALVARIUM: Unremarkable. PARANASAL SINUSES: Unremarkable as visualized. No significant inflammatory changes. MASTOID AIR CELLS: Unremarkable as visualized. No inflammatory changes. OTHER FINDINGS: None. IMPRESSION: No intracranial mass, hemorrhage or evidence of acute infarct. Several small old left basal ganglia lacunar infarcts.
--- NOTE | 2016-12-10 09:39 | RAD ---
PROCEDURE: CHEST RADIOGRAPH, 1 VIEW HISTORY: SOB COMPARISON: 08/29/2016 FINDINGS: LUNGS: Clear. PLEURA: No pneumothorax or pleural fluid seen. CARDIOVASCULAR: Normal. OSSEOUS STRUCTURES: No significant abnormalities. VISUALIZED UPPER ABDOMEN: Normal. OTHER FINDINGS: None. IMPRESSION: No active disease.
[2016-12-10] MEDS ORDERED: Sodium Chloride 0.9% 1,000 ML IV SCH (16:15)
[2016-12-10] MEDS ORDERED: Apap-Butalbital-Caffeine 325-50-40mg Tab PO PRN (16:56)
[2016-12-10] MEDS ORDERED: Multivitamin (MVI) 10 ML, Thiamine 100 MG, Folic Acid 1 MG in Sodium Chloride 0.9% 1,00... IV ONE (17:15)
--- NOTE | 2016-12-10 17:54 | CP.PCM.HP ---
History of Present Illness - History of Present Illness History of Present Illness: PGY1 Medicine Note for Dr. Sanchez 51 yo female with a past medical history of ischemic stroke (08/22/16), Bipolar 1 disorder, seizures, etoh abuse/withdrawal and placement of loop recorder (). Patient presents to the ED today with a complaint of worsening headaches and chest pain. The patient states that she has been experiencing headaches ever since she had her stroke in July of 2016. The headaches are diffuse in nature. She states her headaches usually go away after a day, but her current headache has not gone away in over a week. Over this week the headache has been increasing in intensity, even though the headache seems to wax and wane. The patient states that she has also been experiencing a sharp pain in the center of her chest. The pain is constant and does not radiate. She states that she does not known when the pain started, but once she noticed it, the pain has not gone away. The patient states that she has been experiencing nausea off and on but has not vomited. Patient states that she believes a lot of this has to do with stress because she is having a lot of problems with her roommates. She says is trying to move out but has no where to go. She is currently living with a couple in an apartment. Patient states she normally does not have tremors when she drinks, but has them whenever she stops drinking for any period of time. Patient denies f/c, d/c, sob, dizziness, lightheadedness, visual changes, cough or any other complaints at this time. While in the emergency room, patient was on her way to X ray when she experienced a seizure. The patient does not remember this incident. 1 mg of Ativan IVP was given to break the seizure. The patient did not bite her tongue but did hit her head. She now has a contusion on the left portion of her forehead. The only residual symptoms from the patient's stroke in July some increased forgetfulness and becomes tongue tied often. The patient was started on multiple medications upon discharge from the hospital after her stroke in July. Patient stated she stopped most of them about a week ago because she started noticing bruising on different parts of her body. Patient states that last night she had 3 big glasses of vodka. She says this is the first time she has drank any alcohol in 2 weeks. She says she drinks when she is stressed. In the past 5 years, her father, mother and 2 sisters have for various reasons. Patient states that she does not want to drink any more and is currently working with one of her sister's who is setting her up with a rehab program to stop drinking. The program is called [facility], but patient does not know when she is going to start in the program because her sister is setting it up for her. PMH: ischemic stroke (08/22/16), Bipolar 1 disorder, seizures, etoh abuse/ withdrawal PSH: placement of loop recorder (09/01/16), R knee - ACL twice, Family Hx: Father at 73 due to heart problems (unknown), Mother had HTN and HLD at 72 due to stroke, Sister with Lupus at 43 due to stroke/[place] , Sister 52 in car accident but did not have any medical problems. Social: Denies tobacco, Admits to drinking but does not believes she has a problem, denies illicit drug use Allergies: Pollen, NKDA Present on Admission - Present on Admission Any Indicators Present on Admission: No History of DVT/PE: No Review of Systems - Review of Systems All systems: reviewed and no additional remarkable complaints except - Constitutional Constitutional: As Per HPI - EENT Eyes: As Per HPI Ears: As Per HPI Nose/Mouth/Throat: As Per HPI - Breasts Breasts: As Per HPI - Cardiovascular Cardiovascular: As Per HPI - Respiratory Respiratory: As Per HPI - Gastrointestinal Gastrointestinal: As Per HPI - Genitourinary Genitourinary: As Per HPI - Reproductive: Female Reproductive:Female: As Per HPI - Menstruation Menstruation: As Per HPI - Integumentary Integumentary: As Per HPI - Neurological Neurological: As Per HPI - Psychiatric Psychiatric: As Per HPI - Endocrine Endocrine: As Per HPI - Hematologic/Lymphatic Hematologic: As Per HPI Past Patient History - Infectious Disease Hx of Infectious Diseases: None - Past Medical History & Family History Past Medical History?: Yes - Past Social History Smoking Status: Never Smoked - CARDIAC Hx Hypercholesterolemia: Yes - PULMONARY Hx Respiratory Disorders: No - NEUROLOGICAL Hx Seizures: Yes - HEENT Hx HEENT Problems: No - RENAL Hx Chronic Kidney Disease: No - ENDOCRINE/METABOLIC Hx Endocrine Disorders: No - HEMATOLOGICAL/ONCOLOGICAL Hx Blood Disorders: No - INTEGUMENTARY Hx Dermatological Problems: No - MUSCULOSKELETAL/RHEUMATOLOGICAL Hx Musculoskeletal Disorders: Yes Hx Back Pain: Yes (SCIATICA) Hx Osteoarthritis: Yes - GASTROINTESTINAL Hx Gastrointestinal Disorders: No - GENITOURINARY/GYNECOLOGICAL Hx Genitourinary Disorders: No - PSYCHIATRIC Hx Anxiety: Yes Hx Depression: Yes - SURGICAL HISTORY Hx Surgeries: Yes Hx Section: Yes Hx Orthopedic Surgery: Yes (Right Knee) Other/Comment: HX:Rt knee surgery - ANESTHESIA Hx Anesthesia: Yes Hx Anesthesia Reactions: No Meds Allergies/Adverse Reactions: Allergies Allergy/AdvReac Type Severity Reaction Status Date / Time No Known Allergies Allergy Verified 12/10/16 07:58 Physical Exam - Constitutional Appears: Non-toxic, No Acute Distress - Head Exam Additional comments: Ecchymosis on left portion of forehead. - ENT Exam ENT Exam: Mucous Membranes Moist Additional comments: Tongue has no signs of bite littlejohn - Respiratory Exam Respiratory Exam: Clear to Auscultation Bilateral, NORMAL BREATHING PATTERN. absent: Accessory Muscle Use, Rales, Rhonchi, Wheezes, Respiratory Distress - Cardiovascular Exam Cardiovascular Exam: REGULAR RHYTHM, +S1, +S2 Additional comments: Chest pain is reproducible on palpation. - GI/Abdominal Exam GI & Abdominal Exam: Normal Bowel Sounds, Soft. absent: Distended, Firm, Guarding, Tenderness - Extremities Exam Extremities exam: Positive for: pedal pulses present. Negative for: calf tenderness, pedal edema - Back Exam Back exam: absent: CVA tenderness (L), CVA tenderness (R) - Neurological Exam Neurological exam: Alert, CN II-XII Intact, Oriented x3 - Expanded Neurological Exam Expanded Neurological exam: Memory Loss-Recent Event (did not remember having seizure on way to xray today.) Patient oriented to: person, place, time Cranial nerves: EOM's Intact: Normal, Facial Palsey w/Forehead Movement: Normal , Facial Palsey w/o Forehead Movement: Normal, Facial Sensation: Normal, Nystagmus: Normal, Tongue Deviation: Normal Cerebellar Function: Finger to Nose: Normal, Heel to Mckeon: Normal (difficult due to tremors), Romberg: Normal Upper motor neuron: Holden Neglect: Normal, Pronator Drift: Abnormal Right Sensory exam: Lower Extremity Light Touch: Normal, Upper Extremity Light Touch: Normal Neuro motor strength exam: Left Upper Extremity: 5, Right Upper Extremity: 5, Left Lower Extremity: 5, Right Lower Extremity: 5 Coma Scale Eye Opening: SPONTANEOUS Coma Scale Motor Response: OBEYS COMMANDS Coma Scale Verbal: Oriented Coma Scale Total: 15 - Psychiatric Exam Psychiatric exam: Depressed - Skin Skin Exam: Dry, Intact, Warm Additional comments: Bruising in various stages of healing. Patient denies any trauma. Does not know why she is getting these, except for one located on the back of her left leg. Patient states that she hit her left leg on her bed frame. Results - Vital Signs Recent Vital Signs: Last Vital Signs Temp 98.9 F 12/10/16 16:20 Pulse 73 12/10/16 16:20 Resp 18 12/10/16 16:20 BP 136/79 12/10/16 16:20 Pulse Ox 96 12/10/16 16:20 - Labs Result Diagrams: 12/10/16 08:44 12/10/16 08:44 Assessment & Plan - Assessment and Plan (Free Text) Plan: Seizures, possibly 2/2 alcohol withdrawal Resume patient's home medications: - Depakote 250mg PO BID - Vitamin B1 100mg daily - Folic Acid 1mg daily - Multivitamin Started on Ativan 1mg q2 PRN Started on Libirum taper, see protocol Started on NS @100mL/hr w/multivitamin, thiamine and folic acid. Placed on Seizure precautions and CIWA protocol CT of Head (12/10/16) - No intracranial mass, hemorrhage or evidence of acute infarct. several small old left basal ganglia lacunar infarcts. AST 51: ALT 30 F/U UA and UDS Chest Pain Troponins neg x 1; f/u next two at 1700 and 0100 EKG - sinus rhythm, nonspecific changes. No acute changes. CXR - No acute disease. Headache, hx of ischemic stroke Started Tylenol 650mg PO Q6 PRN Started Fioricet 1 tab PO Q4 PRN Resume home medications: Aspirin 81 mg PO daily Clopidogrel 75mg PO daily Rosuvastin 10mg PO daily Gabapentin 100mg PO TID CT of Head (12/10/16) - No intracranial mass, hemorrhage or evidence of acute infarct. several small old left basal ganglia lacunar infarcts. Prophylactic Care Patient currently on Clopidogrel and Aspirin Start Pepcid 20mg PO daily Will discuss with Dr. Laura Desai - Date & Time Date: 12/10/16 Time: 12:20
[2016-12-10] MEDS: Potassium Chloride 20 mEq ER Tab PO SCH (18:43)
[2016-12-10] MEDS: Divalproex 250 mg DR Tab PO SCH (19:13)
[2016-12-11 01:16] LABS: RBC URINE 3 /hpf (0-3); URINE BACTERIA OCC (<OCC); URINE BILIRUBIN NEGATIVE (NEGATIVE); URINE BLOOD 1+ (NEGATIVE); URINE COLOR Yellow (YELLOW); URINE GLUCOSE (UA) NORMAL (Normal); URINE KETONE NEGATIVE (NEGATIVE); URINE LEUKOCYTE ESTERASE NEG Leu/uL (Negative); URINE PROTEIN NEGATIVE (NEGATIVE); URINE UROBILINOGEN NORMAL mg/dL (0.2-1.0); WBC CLUMPS MOD /hpf; WBC URINE 10 /hpf (0-5)
[2016-12-11 07:36] LABS: CHLORIDE 99 mmol/L (98-107); POTASSIUM 3.9 mmol/L (3.6-5.2); SODIUM 137 mmol/L (132-148)
[2016-12-11 07:37] LABS: MEAN CELL VOLUME 91.6 fL (81.0-99.0); MEAN CORPUSCULAR HEMOGLOBIN 29.9 pg (27.0-31.0); MEAN CORPUSCULAR HGB CONC 32.7 g/dL (33.0-37.0); MEAN PLATELET VOLUME 8.3 fL (7.2-11.7); RED CELL DISTRIBUTION WIDTH 15.7 % (11.5-14.5); WHITE BLOOD COUNT 3.3 K/uL (4.8-10.8)
[2016-12-11 07:38] LABS: CHOLESTEROL 209 mg/dL (0-199)
[2016-12-11 07:39] LABS: BLOOD UREA NITROGEN 7 mg/dL (7-17); CARBON DIOXIDE 30 mmol/L (22-30); GFR AFRICAN-AMERICAN > 60; GLUCOSE,RANDOM 82 mg/dL (65-105); PHOSPHOROUS 3.4 mg/dL (2.5-4.5)
[2016-12-11 07:40] LABS: CALCIUM 9.2 mg/dl (8.6-10.4); MAGNESIUM 1.8 mg/dL (1.6-2.3)
[2016-12-11 08:09] LABS: THYROID STIMULATING HORMONE 2.05 mIU/L (0.46-4.68)
[2016-12-11] MEDS ORDERED: Multiple Vitamins Tab PO SCH (10:00)
[2016-12-11] MEDS: Divalproex 250 mg DR Tab PO SCH ×2 (10:40→17:53)
[2016-12-11] MEDS: Potassium Chloride 20 mEq ER Tab PO SCH ×2 (10:40→17:53)
--- NOTE | 2016-12-11 18:28 | CP.PCM.PN ---
<Kalie Brewer - Last Filed: 12/11/16 18:12> Subjective - Date & Time of Evaluation Date of Evaluation: 12/11/16 Time of Evaluation: 07:00 - Subjective Subjective: Medicine Note for Dr. Sanchez Patient seen and examined at bedside. Patient reports she feels better, but continues to have headaches. Tylenol was given to her yesterday and that helped her. Denied fever, chills, headaches, chest pain, abdominal pain, n/v/d/c, or urinary symptoms. Objective - Vital Signs/Intake and Output Vital Signs (last 24 hours): Temp Pulse Resp BP Pulse Ox 98 F 75 18 119/79 100 12/11/16 15:27 12/11/16 15:27 12/11/16 15:27 12/11/16 15:27 12/11/16 15:27 Intake and Output: 12/11/16 12/11/16 06:59 18:59 Intake Total 350 Balance 350 - Medications Medications: Current Medications Acetaminophen (Tylenol 325mg Tab) 650 mg PO Q6 PRN PRN Reason: Headache Last Admin: 12/10/16 19:19 Dose: 650 mg Acetaminophen/Butalbital/Caffeine (Fioricet) 1 tab PO Q4 PRN PRN Reason: Headache 2ND LINE TO APAP Aspirin (Ecotrin) 81 mg PO DAILY [facility] Last Admin: 12/11/16 10:40 Dose: 81 mg Chlordiazepoxide (Librium) 25 mg PO Q6 [facility] PRN Reason: Taper Stop: 12/14/16 17:59 Last Admin: 12/11/16 17:53 Dose: 25 mg Clopidogrel Bisulfate (Plavix) 75 mg PO DAILY [facility] Last Admin: 12/11/16 10:41 Dose: 75 mg Divalproex Sodium (Depakote Dr) 250 mg PO BID [facility] Last Admin: 12/11/16 10:40 Dose: 250 mg Famotidine (Pepcid) 20 mg PO DAILY [facility] Last Admin: 12/11/16 10:40 Dose: 20 mg Gabapentin (Neurontin) 100 mg PO TID [facility] Last Admin: 12/11/16 17:53 Dose: 100 mg Ceftriaxone Sodium 1 gm/ (Sodium Chloride) 100 mls @ 100 mls/hr IVPB DAILY [facility] Last Admin: 12/11/16 10:42 Dose: 100 mls/hr Levetiracetam (Keppra) 500 mg PO BID [facility] Last Admin: 12/11/16 17:53 Dose: 500 mg Lorazepam (Ativan) 1 mg IVP Q4H PRN PRN Reason: Symptoms of alcohol withdrawl Pneumococcal Polyvalent Vaccine (Pneumovax 23 Vaccine) 0.5 ml IM .ONCE ONE Stop: 12/13/16 10:01 Potassium Chloride (K-Dur 20 Meq Er Tab) 40 meq PO BID [facility] Last Admin: 12/11/16 17:53 Dose: 40 meq Rosuvastatin Calcium (Crestor) 10 mg PO HS [facility] Last Admin: 12/10/16 22:10 Dose: 10 mg Trazodone HCl (Desyrel) 50 mg PO HS [facility] Last Admin: 12/10/16 22:10 Dose: 50 mg - Labs Labs: 12/11/16 07:16 12/11/16 07:16 PT 10.5 SECONDS (9.7-12.2) 12/10/16 08:44 INR 0.9 12/10/16 08:44 - Constitutional Appears: No Acute Distress - Head Exam Head Exam: NORMAL INSPECTION, NORMOCEPHALIC - Eye Exam Eye Exam: EOMI, Normal appearance, PERRL Pupil Exam: NORMAL ACCOMODATION - Respiratory Exam Respiratory Exam: Clear to Ausculation Bilateral, NORMAL BREATHING PATTERN. absent: Wheezes - Cardiovascular Exam Cardiovascular Exam: REGULAR RHYTHM, RRR, +S1, +S2 - GI/Abdominal Exam GI & Abdominal Exam: Soft, Normal Bowel Sounds. absent: Distended, Tenderness - Extremities Exam Extremities Exam: Normal Inspection. absent: Pedal Edema, Tenderness - Neurological Exam Neurological Exam: Alert, Awake, Oriented x3 - Psychiatric Exam Psychiatric exam: Normal Affect, Normal Mood - Skin Skin Exam: Dry, Intact, Normal Color, Warm Assessment and Plan - Assessment and Plan (Free Text) Plan: Seizures * Most likely secondary to noncompliance with anti-seizure medications, alcohol use, and alcohol withdrawal * Valproic acid level was 23.2 * Started on Libirum taper, see protocol, Ativan 1mg q2 PRN * Placed on Seizure precautions and CIWA protocol * Resumed patient's home medications: Depakote 250mg PO BID, Vitamin B1 100mg daily, Folic Acid 1mg daily, Multivitamin * CT of Head (12/10/16) - No intracranial mass, hemorrhage or evidence of acute infarct. several small old left basal ganglia lacunar infarcts. * Patient's private attending is Dr. Flo Gillespie- Consulted - help appreciated - added Keppra 500mg PO BID Hx of Left Basal Ganglia CVA * 07/2016 * CT of Head (12/10/16) - No intracranial mass, hemorrhage or evidence of acute infarct. several small old left basal ganglia lacunar infarcts. * Aspirin 81 mg PO daily * Rosuvastin 10mg PO daily, Gabapentin 100mg PO TID UTI * + nitrates * Rocephin 1 gram IVP daily * F/U Urine Culture Headache * Started Tylenol 650mg PO Q6 PRN * Started Fioricet 1 tab PO Q4 PRN Chest Pain r/o ACS * XAVIER x 3 negative * EKG - sinus rhythm, nonspecific changes. No acute changes. * CXR - No acute disease. * Cardiac Cath was performed by Dr. Juan 12/07/16. EF 70%, patent coronaries, medical management * UA and UDS - negative Prophylactic Care * GI PPX: Pepcid 20mg PO daily * DVT PPX: DW Daniella Monterroso DO, PGY-1 <Jose Juan Sanchez Jr. - Last Filed: 12/16/16 10:40> Objective - Vital Signs/Intake and Output Vital Signs (last 24 hours): Temp Pulse Resp BP Pulse Ox 97.4 F L 66 20 106/72 100 12/13/16 16:00 12/13/16 16:00 12/13/16 16:00 12/13/16 16:00 12/13/16 16:00 - Labs Labs: 12/13/16 07:12 12/13/16 07:12 PT 10.5 SECONDS (9.7-12.2) 12/10/16 08:44 INR 0.9 12/10/16 08:44 APTT 31 SECONDS (21-34) 12/12/16 06:14 Attending/Attestation - Attestation I have personally seen and examined this patient.: Yes I have fully participated in the care of the patient.: Yes I have reviewed all pertinent clinical information, including history, physical exam and plan: Yes Notes (Text): 12/16/16 10:40 Agree with resident note and findings
[2016-12-12 01:34] VITALS: RESP 20
[2016-12-12 06:19] LABS: HEMATOCRIT 34.7 % (34.0-47.0); MEAN CELL VOLUME 91.1 fL (81.0-99.0); MEAN CORPUSCULAR HEMOGLOBIN 30.3 pg (27.0-31.0); MEAN CORPUSCULAR HGB CONC 33.2 g/dL (33.0-37.0); MEAN PLATELET VOLUME 8.1 fL (7.2-11.7); RED CELL DISTRIBUTION WIDTH 15.4 % (11.5-14.5); WHITE BLOOD COUNT 3.9 K/uL (4.8-10.8)
[2016-12-12 06:30] LABS: ALB/GLOB RATIO 1.1 (1.0-2.1); ALKALINE PHOSPHATASE 62 U/L (38-126); ALT/SGPT 27 U/L (9-52); AST/SGOT 40 U/L (14-36); BILIRUBIN,TOTAL 0.4 mg/dL (0.2-1.3); BLOOD UREA NITROGEN 9 mg/dL (7-17); CALCIUM 9.3 mg/dl (8.6-10.4); CARBON DIOXIDE 25 mmol/L (22-30); CHLORIDE 101 mmol/L (98-107); GFR AFRICAN-AMERICAN > 60; GLUCOSE,RANDOM 82 mg/dL (65-105); PHOSPHOROUS 4.2 mg/dL (2.5-4.5); POTASSIUM 4.3 mmol/L (3.6-5.2); SODIUM 137 mmol/L (132-148); TOTAL PROTEIN 7.1 g/dL (6.3-8.3)
[2016-12-12] MEDS: Divalproex 250 mg DR Tab PO SCH ×2 (09:41→18:18)
--- NOTE | 2016-12-12 17:20 | CON ---
HISTORY OF PRESENT ILLNESS: This is a 51-year-old female with past medical history of seizures and came here with complaint of headache and boozing and also has a past history of stroke. The patient also reports history of alcohol abuse and was drinking and called to evaluate for headache. No blurred vision, no double vision. PAST MEDICAL HISTORY: Stroke, alcohol abuse, anxiety, depression, fibromyalgia. ALLERGIES: No KNOWN DRUG ALLERGIES. REVIEW OF SYSTEMS: A 10-point review of system was negative except headache. PHYSICAL EXAMINATION: HEENT: Normocephalic and atraumatic NECK: Supple. NEUROLOGIC: Awake, alert, oriented to x3. No aphasia. Cranial nerves II and XII tested. Pupil reactive. EOM intact. Visual duque full. No facial asymmetry. Tongue midline. Motor examination, moves all the extremities equally. Tone normal. Deep tendon reflexes 1+. Both plantars are downgoing. Sensory appears intact. Cerebellar and gait are deferred. IMPRESSION: Headache, EtOH abuse, history of lacunar infarct, and left basal ganglia. LABORATORY DATA: WBC 4.7, hemoglobin 12, hematocrit 36.2, platelet 217,000. Sodium 138, potassium 3.1, chloride 96, CO2 of 29, glucose 93, BUN 10, creatinine 0.4. PLAN: Continue present management and we will start Fioricet one q. 8 hours p.r.n., and also do EEG. Kike Gillespie MD
--- NOTE | 2016-12-12 22:52 | CP.PCM.PN ---
<Aron Briones - Last Filed: 12/12/16 23:49> Subjective - Date & Time of Evaluation Date of Evaluation: 12/12/16 Time of Evaluation: 14:00 - Subjective Subjective: PGY-[address] Sanchez Patient seen and examined at bedside. Patient reports no chest pain at the moment but is still experiencing headaches and intermittent dizziness. Patient states that she is experiencing easy bruising since the time of seizure. Patient denies fevers, chills, chest pain, palpitations, SOB, abdominal pain, dysuria. Objective - Vital Signs/Intake and Output Vital Signs (last 24 hours): Temp Pulse Resp BP Pulse Ox 98.1 F 81 20 102/72 100 12/12/16 15:10 12/12/16 15:10 12/12/16 15:10 12/12/16 15:10 12/12/16 15:10 Intake and Output: 12/12/16 12/13/16 18:59 06:59 Intake Total 240 Balance 240 - Medications Medications: Current Medications Acetaminophen (Tylenol 325mg Tab) 650 mg PO Q6 PRN PRN Reason: Headache Last Admin: 12/12/16 09:41 Dose: 650 mg Acetaminophen/Butalbital/Caffeine (Fioricet) 1 tab PO Q4 PRN PRN Reason: Headache 2ND LINE TO APAP Aspirin (Ecotrin) 81 mg PO DAILY COUNTS INCLUDE 234 BEDS AT THE [facility] Last Admin: 12/12/16 09:40 Dose: 81 mg Chlordiazepoxide (Librium) 25 mg PO BID COUNTS INCLUDE 234 BEDS AT THE [facility] PRN Reason: Taper Stop: 12/14/16 17:59 Last Admin: 12/12/16 18:18 Dose: 25 mg Divalproex Sodium (Depakote Dr) 250 mg PO BID COUNTS INCLUDE 234 BEDS AT THE [facility] Last Admin: 12/12/16 18:18 Dose: 250 mg Famotidine (Pepcid) 20 mg PO DAILY COUNTS INCLUDE 234 BEDS AT THE [facility] Last Admin: 12/12/16 09:40 Dose: 20 mg Gabapentin (Neurontin) 100 mg PO TID COUNTS INCLUDE 234 BEDS AT THE [facility] Last Admin: 12/12/16 18:18 Dose: 100 mg Heparin Sodium (Porcine) (Heparin) 5,000 units SC Q12 COUNTS INCLUDE 234 BEDS AT THE [facility] Last Admin: 12/12/16 09:40 Dose: 5,000 units Ceftriaxone Sodium 1 gm/ (Sodium Chloride) 100 mls @ 100 mls/hr IVPB DAILY COUNTS INCLUDE 234 BEDS AT THE [facility] Last Admin: 12/12/16 09:42 Dose: 100 mls/hr Levetiracetam (Keppra) 500 mg PO BID COUNTS INCLUDE 234 BEDS AT THE [facility] Last Admin: 12/12/16 18:18 Dose: 500 mg Lorazepam (Ativan) 1 mg IVP Q4H PRN PRN Reason: Symptoms of alcohol withdrawl Last Admin: 12/12/16 03:25 Dose: 1 mg Pneumococcal Polyvalent Vaccine (Pneumovax 23 Vaccine) 0.5 ml IM .ONCE ONE Stop: 12/13/16 10:01 Rosuvastatin Calcium (Crestor) 10 mg PO HS COUNTS INCLUDE 234 BEDS AT THE [facility] Last Admin: 12/11/16 22:04 Dose: 10 mg Trazodone HCl (Desyrel) 50 mg PO HS COUNTS INCLUDE 234 BEDS AT THE [facility] Last Admin: 12/11/16 22:04 Dose: 50 mg - Labs Labs: 12/12/16 06:14 12/12/16 06:14 PT 10.5 SECONDS (9.7-12.2) 12/10/16 08:44 INR 0.9 12/10/16 08:44 APTT 31 SECONDS (21-34) 12/12/16 06:14 - Constitutional Appears: No Acute Distress - Head Exam Head Exam: ATRAUMATIC, NORMAL INSPECTION, NORMOCEPHALIC - Eye Exam Eye Exam: EOMI, PERRL - ENT Exam ENT Exam: Mucous Membranes Moist - Respiratory Exam Respiratory Exam: Clear to Ausculation Bilateral. absent: Rales, Rhonchi, Wheezes - Cardiovascular Exam Cardiovascular Exam: REGULAR RHYTHM, +S1, +S2 - GI/Abdominal Exam GI & Abdominal Exam: Soft, Normal Bowel Sounds. absent: Tenderness - Neurological Exam Neurological Exam: Alert, Awake, Oriented x3 - Psychiatric Exam Psychiatric exam: Normal Affect, Normal Mood - Skin Skin Exam: Dry, Intact, Normal Color, Warm Assessment and Plan - Assessment and Plan (Free Text) Plan: Seizures * Most likely secondary to noncompliance with anti-seizure medications, alcohol use, and alcohol withdrawal * Valproic acid level was 23.2 * Started on Libirum taper, see protocol, Ativan 1mg q2 PRN * Placed on Seizure precautions and CIWA protocol * Resumed patient's home medications: Depakote 250mg PO BID, Vitamin B1 100mg daily, Folic Acid 1mg daily, Multivitamin * CT of Head (12/10/16) - No intracranial mass, hemorrhage or evidence of acute infarct. several small old left basal ganglia lacunar infarcts. * Patient's private attending is Dr. Ramos Gillespie- Consulted - help appreciated - added Keppra 500mg PO BID Hx of Left Basal Ganglia CVA * 07/2016 * CT of Head (12/10/16) - No intracranial mass, hemorrhage or evidence of acute infarct. several small old left basal ganglia lacunar infarcts. * Aspirin 81 mg PO daily * Rosuvastin 10mg PO daily, Gabapentin 100mg PO TID UTI * + nitrates * Rocephin 1 gram IVP daily * F/U Urine Culture Headache * Started Tylenol 650mg PO Q6 PRN * Started Fioricet 1 tab PO Q4 PRN Chest Pain r/o ACS * XAVIER x 3 negative * EKG - sinus rhythm, nonspecific changes. No acute changes. * CXR - No acute disease. * Cardiac Cath was performed by Dr. Juan 12/07/16. EF 70%, patent coronaries, medical management * UA and UDS - negative Prophylactic Care * GI PPX: Pepcid 20mg PO daily * DVT PPX Heparin 5000U SC Q12 Pending Discharge tomorrow morning. F/u Dr. Fabiola Gillespie's recommendations. Case DW Dr. Laura Briones PGY-1 <Jose Juan Sanchez Jr. - Last Filed: 12/16/16 10:43> Objective - Vital Signs/Intake and Output Vital Signs (last 24 hours): Temp Pulse Resp BP Pulse Ox 97.4 F L 66 20 106/72 100 12/13/16 16:00 12/13/16 16:00 12/13/16 16:00 12/13/16 16:00 12/13/16 16:00 - Labs Labs: 12/13/16 07:12 12/13/16 07:12 PT 10.5 SECONDS (9.7-12.2) 12/10/16 08:44 INR 0.9 12/10/16 08:44 APTT 31 SECONDS (21-34) 12/12/16 06:14 Attending/Attestation - Attestation I have personally seen and examined this patient.: Yes I have fully participated in the care of the patient.: Yes I have reviewed all pertinent clinical information, including history, physical exam and plan: Yes Notes (Text): 12/16/16 10:42 Agree with resident note and findings
[2016-12-13 07:33] LABS: HEMATOCRIT 34.5 % (34.0-47.0); MEAN CELL VOLUME 90.9 fL (81.0-99.0); MEAN CORPUSCULAR HEMOGLOBIN 29.7 pg (27.0-31.0); MEAN CORPUSCULAR HGB CONC 32.7 g/dL (33.0-37.0); MEAN PLATELET VOLUME 8.1 fL (7.2-11.7); RED CELL DISTRIBUTION WIDTH 15.4 % (11.5-14.5); WHITE BLOOD COUNT 4.3 K/uL (4.8-10.8)
[2016-12-13 08:24] LABS: CHLORIDE 101 mmol/L (98-107); POTASSIUM 4.4 mmol/L (3.6-5.2); SODIUM 136 mmol/L (132-148)
[2016-12-13 08:26] LABS: ALKALINE PHOSPHATASE 56 U/L (38-126); ALT/SGPT 30 U/L (9-52); AST/SGOT 35 U/L (14-36); BILIRUBIN,TOTAL 0.4 mg/dL (0.2-1.3); BLOOD UREA NITROGEN 12 mg/dL (7-17); CARBON DIOXIDE 24 mmol/L (22-30); GFR AFRICAN-AMERICAN > 60; GLUCOSE,RANDOM 83 mg/dL (65-105)
[2016-12-13 08:27] LABS: CALCIUM 9.2 mg/dl (8.6-10.4); PHOSPHOROUS 4.6 mg/dL (2.5-4.5)
[2016-12-13 09:34] VITALS: O2SAT 100
[2016-12-13] MEDS ORDERED: Pneumococcal 23-Valent Vaccine IM ONE (10:00)
[2016-12-13] MEDS: Divalproex 250 mg DR Tab PO SCH ×2 (10:57→17:36)
--- NOTE | 2016-12-13 14:58 | CP.PCM.DIS ---
Provider - Provider Date of Admission: 12/10/16 10:17 Attending physician: Jose Juan Sanchez Jr, MD Consults: Dr. Drake Duncan Time Spent in preparation of Discharge (in minutes): 46 Hospital Course - Lab Results Lab Results: Micro Results 12/11/16 10:22 Urine Urine Culture - Final Escherichia Coli Most Recent Lab Values WBC 4.3 K/uL (4.8-10.8) L 12/13/16 07:12 RBC 3.79 Mil/uL (3.80-5.20) L 12/13/16 07:12 Hgb 11.3 g/dL (11.0-16.0) 12/13/16 07:12 Hct 34.5 % (34.0-47.0) 12/13/16 07:12 MCV 90.9 fL (81.0-99.0) 12/13/16 07:12 MCH 29.7 pg (27.0-31.0) 12/13/16 07:12 MCHC 32.7 g/dL (33.0-37.0) L 12/13/16 07:12 RDW 15.4 % (11.5-14.5) H 12/13/16 07:12 Plt Count 205 K/uL (130-400) 12/13/16 07:12 MPV 8.1 fL (7.2-11.7) 12/13/16 07:12 Neut % (Auto) 67.4 % (50.0-75.0) 12/10/16 08:44 Lymph % (Auto) 22.8 % (20.0-40.0) 12/10/16 08:44 [place] % (Auto) 8.1 % (0.0-10.0) 12/10/16 08:44 Eos % (Auto) 1.1 % (0.0-4.0) 12/10/16 08:44 Baso % (Auto) 0.6 % (0.0-2.0) 12/10/16 08:44 Neut # 3.1 K/uL (1.8-7.0) 12/10/16 08:44 Lymph # 1.1 K/uL (1.0-4.3) 12/10/16 08:44 [place] # 0.4 K/uL (0.0-0.8) 12/10/16 08:44 Eos # 0.1 K/uL (0.0-0.7) 12/10/16 08:44 Baso # 0.0 K/uL (0.0-0.2) 12/10/16 08:44 PT 10.5 SECONDS (9.7-12.2) 12/10/16 08:44 INR 0.9 12/10/16 08:44 APTT 31 SECONDS (21-34) 12/12/16 06:14 Sodium 136 mmol/L (132-148) 12/13/16 07:12 Potassium 4.4 mmol/L (3.6-5.2) 12/13/16 07:12 Chloride 101 mmol/L (98-107) 12/13/16 07:12 Carbon Dioxide 24 mmol/L (22-30) 12/13/16 07:12 Anion Gap 15 (10-20) 12/13/16 07:12 BUN 12 mg/dL (7-17) 12/13/16 07:12 Creatinine 0.5 MG/DL (0.7-1.2) L 12/13/16 07:12 Est GFR ( Amer) > 60 12/13/16 07:12 Est GFR (Non-Af Amer) > 60 12/13/16 07:12 Random Glucose 83 mg/dL (65-105) 12/13/16 07:12 Calcium 9.2 mg/dl (8.6-10.4) 12/13/16 07:12 Phosphorus 4.6 mg/dL (2.5-4.5) H 12/13/16 07:12 Magnesium 2.0 mg/dL (1.6-2.3) 12/13/16 07:12 Total Bilirubin 0.4 mg/dL (0.2-1.3) 12/13/16 07:12 AST 35 U/L (14-36) 12/13/16 07:12 ALT 30 U/L (9-52) 12/13/16 07:12 Alkaline Phosphatase 56 U/L (38-126) 12/13/16 07:12 Total Creatine Kinase 59 U/L (30-135) 12/11/16 01:25 CK-MB (Mass) 0.46 ng/mL (0.0-3.38) 12/11/16 01:25 Troponin I < 0.0120 ng/mL (0.00-0.120) 12/10/16 08:44 Troponin I, Quant < 0.0120 ng/mL (0.00-0.120) 12/11/16 01:25 Total Protein 7.0 g/dL (6.3-8.3) 12/13/16 07:12 Albumin 3.6 g/dL (3.5-5.0) 12/13/16 07:12 Globulin 3.5 gm/dL (2.2-3.9) 12/13/16 07:12 Albumin/Globulin Ratio 1.0 (1.0-2.1) 12/13/16 07:12 Triglycerides 55 mg/dL (0-149) 12/11/16 07:16 Cholesterol 209 mg/dL (0-199) H 12/11/16 07:16 LDL Cholesterol Direct 95 mg/dL (0-129) 12/11/16 07:16 HDL Cholesterol 91 mg/dL (30-70) H 12/11/16 07:16 Lipase 297 U/L (23-300) 12/10/16 08:44 TSH 3rd Generation 2.05 mIU/L (0.46-4.68) 12/11/16 07:16 Urine Color Yellow (YELLOW) 12/11/16 01:05 Urine Clarity Hazy (Clear) 12/11/16 01:05 Urine pH 8.0 (5.0-8.0) 12/11/16 01:05 Ur Specific [place] 1.009 (1.003-1.030) 12/11/16 01:05 Urine Protein Negative mg/dL (NEGATIVE) 12/11/16 01:05 Urine Glucose (UA) Normal mg/dL (Normal) 12/11/16 01:05 Urine Ketones Negative mg/dL (NEGATIVE) 12/11/16 01:05 Urine Blood 1+ (NEGATIVE) H 12/11/16 01:05 Urine Nitrate Positive (NEGATIVE) H 12/11/16 01:05 Urine Bilirubin Negative (NEGATIVE) 12/11/16 01:05 Urine Urobilinogen Normal mg/dL (0.2-1.0) 12/11/16 01:05 Ur Leukocyte Esterase Neg Marcin/uL (Negative) 12/11/16 01:05 Urine WBC (Auto) 10 /hpf (0-5) H 12/11/16 01:05 Urine RBC (Auto) 3 /hpf (0-3) 12/11/16 01:05 Urine WBC Clumps (Auto) Mod /hpf (NONE) H 12/11/16 01:05 Ur Squamous Epith Cells 2 /hpf (0-5) 12/11/16 01:05 Urine Bacteria Occ (<OCC) H 12/11/16 01:05 Urine Yeast (Budding) Few /hpf (NEGATIVE) H 12/11/16 01:05 Urine Opiates Screen Negative (NEGATIVE) 12/11/16 01:04 Urine Methadone Screen Negative (NEGATIVE) 12/11/16 01:04 Ur Barbiturates Screen Negative (NEGATIVE) 12/11/16 01:04 Valproic Acid 23.2 ug/mL (50.0-100.0) L 12/11/16 11:30 Ur Phencyclidine Scrn Negative (NEGATIVE) 12/11/16 01:04 Ur Amphetamines Screen Negative (NEGATIVE) 12/11/16 01:04 U Benzodiazepines Scrn Negative (NEGATIVE) 12/11/16 01:04 U Oth Cocaine Metabols Negative (NEGATIVE) 12/11/16 01:04 U Cannabinoids Screen Negative (NEGATIVE) 12/11/16 01:04 Alcohol, Quantitative 41 mg/dl (0-10) H 12/10/16 08:44 - Hospital Course Hospital Course: PGY1 Medicine Note for Dr. Sanchez 51 yo female with a past medical history of ischemic stroke (08/22/16), Bipolar 1 disorder, seizures, etoh abuse/withdrawal and placement of loop recorder (). Patient presents to the ED today with a complaint of worsening headaches and chest pain. The patient states that she has been experiencing headaches ever since she had her stroke in July of 2016. The headaches are diffuse in nature. She states her headaches usually go away after a day, but her current headache has not gone away in over a week. Over this week the headache has been increasing in intensity, even though the headache seems to wax and wane. The patient states that she has also been experiencing a sharp pain in the center of her chest. The pain is constant and does not radiate. She states that she does not known when the pain started, but once she noticed it, the pain has not gone away. The patient states that she has been experiencing nausea off and on but has not vomited. Patient states that she believes a lot of this has to do with stress because she is having a lot of problems with her roommates. She says is trying to move out but has no where to go. She is currently living with a couple in an apartment. Patient states she normally does not have tremors when she drinks, but has them whenever she stops drinking for any period of time. Patient denies f/c, d/c, sob, dizziness, lightheadedness, visual changes, cough or any other complaints at this time. While in the emergency room, patient was on her way to X ray when she experienced a seizure. The patient does not remember this incident. 1 mg of Ativan IVP was given to break the seizure. The patient did not bite her tongue but did hit her head. She now has a contusion on the left portion of her forehead. The only residual symptoms from the patient's stroke in July some increased forgetfulness and becomes tongue tied often. The patient was started on multiple medications upon discharge from the hospital after her stroke in July. Patient stated she stopped most of them about a week ago because she started noticing bruising on different parts of her body. Patient states that last night she had 3 big glasses of vodka. She says this is the first time she has drank any alcohol in 2 weeks. She says she drinks when she is stressed. In the past 5 years, her father, mother and 2 sisters have for various reasons. Patient states that she does not want to drink any more and is currently working with one of her sister's who is setting her up with a rehab program to stop drinking. The program is called [facility], but patient does not know when she is going to start in the program because her sister is setting it up for her. Hospital course: Patient was admitted with a vinayak, he had a CT scan, EEG, Neurology referral. She had lab work preformed daily. She also had a EKG and also CXR preformed as well. A Cardiology consult was ordered as well. Please see EMR for all lab results and imaging studies. Discharge Plan Patient to be discharged per Dr. Sanchez. She will need to continue her current home medications. She will need to take Keppra 500mg twice a day, Depakoate 250mg twice a day, and Keflex 500mg twice a day for 4 days. She will need to follow up in Dr. Sanchez's office after discharge for post hospital follow up care , primary care, and for referral to neurology for outpatient EEG. Patient to return if symptoms return or worsen. Discharge diagnosis: Breakthrough seizures Chest Pain Etoh withdraw Discharge Exam - Head Exam Head Exam: ATRAUMATIC, NORMAL INSPECTION, NORMOCEPHALIC - Eye Exam Eye Exam: Normal appearance Pupil Exam: NORMAL ACCOMODATION - Respiratory Exam Respiratory Exam: Clear to PA & Lateral. absent: Rales, Rhonchi, Wheezes - Cardiovascular Exam Cardiovascular Exam: REGULAR RHYTHM, RRR, +S1, +S2. absent: Gallop, Rubs - GI/Abdominal Exam GI & Abdominal Exam: Normal Bowel Sounds, Soft. absent: Guarding, Rebound, Tenderness - Extremities Exam Extremities exam: normal inspection - Psychiatric Exam Psychiatric exam: Normal Affect, Normal Mood - Skin Skin Exam: Normal Color Discharge Plan - Discharge Medications Prescriptions: Cephalexin [Keflex] 500 mg PO BID #8 capsule Divalproex [Depakote DR] 250 mg PO BID #60 tcp levETIRAcetam [Keppra] 500 mg PO BID #60 tab - Follow Up Plan Condition: STABLE Disposition: HOME/ ROUTINE Instructions: Cephalexin (By mouth), Levetiracetam (By mouth), Divalproex (By mouth), Chest Pain (DC), Migraine Headache (DC), Epilepsy (DC), Abuse of Alcohol (DC), Alcohol Withdrawal (DC) Additional Instructions: Patient to be discharged per Dr. Sanchez. She will need to continue her current home medications. She will need to take Keppra 500mg twice a day, Depakoate 250mg twice a day, and Keflex 500mg twice a day for 4 days. She will need to follow up in Dr. Sanchez's office after discharge for post hospital follow up care , primary care, and for referral to neurology for outpatient EEG. Patient to return if symptoms return or worsen. Referrals: Jose Juan Sanchez Jr., MD [Medical Doctor] -
[2016-12-13 16:15] VITALS: BP 106/72; PULSE 66; TEMP 97.4
--- NOTE | 2016-12-13 18:15 | CARD ---
APPROVED REPORT EKG Measurement Heart [id number] <Conclusion> Normal sinus rhythm
--- NOTE | 2016-12-16 17:54 | CARD ---
APPROVED REPORT EKG Measurement Heart [id number] [id number] <Conclusion> Normal sinus rhythm Normal ECG
--- NOTE | 2016-12-17 11:58 | CARD ---
APPROVED REPORT EKG Measurement Heart [id number] <Conclusion> Normal sinus rhythm Normal ECG
--- NOTE | 2016-12-23 05:24 | EEG ---
DIAGNOSES: Seizure disorder and alcohol abuse. MEDICATIONS: Tylenol, Rocephin, Librium, Pepcid and Neurontin. DESCRIPTION: Background activity of this tracing well-composed of 8 cycles per second alpha-like activity. Lot of beta activity, 16 to 20 cycle was seen in most of the record. Small theta activity 5 to 7 cycles per second were noted in the tracing. Drowsiness composed on mixed beta and theta activity. Photic stimulation does not change the record. No paroxysmal activity was seen in the record. IMPRESSION: Mild bilateral cerebellar dysfunction, diffuse. Kike MD Jose Miguel
== END 2016-12-13 19:15 | disposition home or self-care (01) | DRG 101 ==
LOC: C.ER 07:54 → C.9E 10:17 → C.6T 14:26
PROVIDERS: ADMIT Internal Medicine; ATTEND Internal Medicine
DX: G40.509 Epileptic seizures related to external causes, not intractable, without status epilepticus (principal); F10.239 Alcohol dependence with withdrawal, unspecified; F31.9 Bipolar disorder, unspecified; R51 Headache; I69.398 Other sequelae of cerebral infarction; M79.7 Fibromyalgia; E78.00 Pure hypercholesterolemia, unspecified; M19.90 Unspecified osteoarthritis, unspecified site; M54.30 Sciatica, unspecified side; G44.89 Other headache syndrome; R07.89 Other chest pain; Z91.14 Patient's other noncompliance with medication regimen; S80.12XS Contusion of left lower leg, sequela; X58.XXXS Exposure to other specified factors, sequela

== ENCOUNTER 2017-05-12 12:57 | Emergency (ER) | payer MEDICARE ==
[2017-05-12 12:58] VITALS: BMI 23.9
[2017-05-12 13:33] VITALS: O2SAT 97
[2017-05-12 14:38] LABS: BASO # 0.1 K/uL (0.0-0.2); BASO % 2.4 % (0.0-2.0); EOS # 0.1 K/uL (0.0-0.7); EOS % 1.5 % (0.0-4.0); LYMPH # 3.3 K/uL (1.0-4.3); LYMPH % 60.8 % (20.0-40.0); MEAN CELL VOLUME 87.8 fL (81.0-99.0); MEAN CORPUSCULAR HEMOGLOBIN 29.1 pg (27.0-31.0); MEAN CORPUSCULAR HGB CONC 33.1 g/dL (33.0-37.0); MEAN PLATELET VOLUME 7.3 fL (7.2-11.7); MONO # 0.5 K/uL (0.0-0.8); MONO % 8.3 % (0.0-10.0); NEUT # 1.5 K/uL (1.8-7.0); NRBC % 0.1 % (0.0-2.0); RBC 4.13 Mil/uL (3.80-5.20); RED CELL DISTRIBUTION WIDTH 16.2 % (11.5-14.5); WHITE BLOOD COUNT 5.5 K/uL (4.8-10.8)
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
[2017-05-12 14:49] LABS: ALB/GLOB RATIO 1.2 (1.0-2.1); ALBUMIN 4.2 g/dL (3.5-5.0); ALT/SGPT 29 U/L (9-52); AST/SGOT 54 U/L (14-36); BLOOD UREA NITROGEN 9 mg/dL (7-17); CALCIUM 7.9 mg/dl (8.6-10.4); GFR AFRICAN-AMERICAN > 60; GFR NON-AFRICAN AMERICAN > 60
[2017-05-12 20:10] VITALS: BP 131/76; PULSE 102; RESP 20; TEMP 98.2
== END 2017-05-12 19:56 | disposition left against medical advice (07) ==
LOC: C.ER 12:57
DX: F10.129 Alcohol abuse with intoxication, unspecified (principal); Y90.8 Blood alcohol level of 240 mg/100 ml or more; E78.00 Pure hypercholesterolemia, unspecified; M79.7 Fibromyalgia
CPT/HCPCS: 80053; 85025; 99283; G0480

== ENCOUNTER 2017-07-13 18:26 | Emergency (ER) | payer MEDICARE ==
[2017-07-13 18:26] VITALS: BMI 23.9
[2017-07-13 18:31] VITALS: BP 141/91; PULSE 95; RESP 20; TEMP 97.9; O2SAT 100
== END 2017-07-13 18:50 | disposition left against medical advice (07) ==
LOC: C.ER 18:26
DX: Z02.89 Encounter for other administrative examinations (principal); F10.10 Alcohol abuse, uncomplicated

== ENCOUNTER 2017-07-13 22:33 | Emergency (ER) | payer MEDICARE ==
[2017-07-13 22:34] VITALS: BMI 23.9
== END 2017-07-13 23:25 | disposition left against medical advice (07) ==
LOC: C.ER 22:33
DX: Z02.89 Encounter for other administrative examinations (principal); F10.129 Alcohol abuse with intoxication, unspecified

== ENCOUNTER 2018-04-29 21:50 | Emergency (ER) | payer MEDICARE ==
[2018-04-29 21:50] VITALS: BMI 23.9
[2018-04-29 22:45] LABS: BASO % 0.3 % (0.0-2.0); LYMPH # 0.4 K/uL (1.0-4.3); LYMPH % 6.4 % (20.0-40.0); MEAN CORPUSCULAR HEMOGLOBIN 21.6 pg (27.0-31.0); MEAN CORPUSCULAR HGB CONC 30.1 g/dL (33.0-37.0); MEAN PLATELET VOLUME 7.1 fL (7.2-11.7); MONO # 0.6 K/uL (0.0-0.8); MONO % 9.7 % (0.0-10.0); NEUT # 4.9 K/uL (1.8-7.0); NEUT % 83.6 % (50.0-75.0); NRBC % 0.2 % (0.0-2.0); PLATELET COUNT 228 K/uL (130-400); RBC 3.71 Mil/uL (3.80-5.20); RED CELL DISTRIBUTION WIDTH 20.6 % (11.5-14.5); WHITE BLOOD COUNT 5.9 K/uL (4.8-10.8)
--- NOTE | 2018-04-29 22:50 | C.PDOC ---
History Of Present Illness 52 year old female presents to the ED c/o alcohol withdrawal associated with nausea and vomiting s/p binge drinking for the past 5 days. Patient self DC 2 days ago. Patient c/o shaking, nausea, vomiting, weakness. Patient denies other associated symptoms, drug use. Patient reports she does not want detox at this time. CO ETOH WITHDRAWAL, [place]. S/P BINGE DRINKING X 5 DAYS, SELF DC 2 DAYS AGO. CO SHAKING, [place], WEAKNESS. NO OTHER ASSOC SX, DRUG USE EXAM MILD DIST HEENT ANICTERIC ABD MILD EPIG TEND SOFT NO R/G CV RRR SINUS TACH NEURO B/L TREMORS, TONGUE FASCIC; AO3, PSYCH CALM COOPERATIVE NO ACUTE INTOX NO SI/SA SKIN POOR TURGOR PT DOES NOT WANT DETOX Time Seen by Provider: 04/29/18 22:22 Chief Complaint (Nursing): Abdominal Pain History Per: Patient History/Exam Limitations: intoxication Onset/Duration Of Symptoms: Days (5) Current Symptoms Are (Timing): Still Present Associated Symptoms: Nausea, Vomiting. denies: Diarrhea, Constipation, Urinary Symptoms Recent travel outside of the [place]: No Additional History Per: Patient Abnormal Vaginal Bleeding: No Past Medical History Reviewed: Historical Data, Nursing Documentation, Vital Signs Vital Signs: Last Vital Signs Temp 99.7 F H 04/29/18 22:43 Pulse 131 H 04/29/18 22:43 Resp 22 04/29/18 22:43 BP 122/67 04/29/18 22:43 Pulse Ox 100 04/29/18 22:43 - Medical History PMH: Anxiety, CVA, Depression, Fibromyalgia, Hypercholesterolemia, Seizures Denies: Diabetes, Hepatitis, HIV, HTN, Chronic Kidney Disease, Sexually Transmitted Disease Surgical History: - [facility] DETOXIFICATION SERVICES FOR SUBSTANCE ABUSE TREATMENT (08/22/16) GROUP DIRECTOR CAMP FOR SUBSTANCE ABUSE TREATMENT, PSYCHOEDUCATION (08/22/16) GROUP DIRECTOR CAMP FOR SUBSTANCE ABUSE, COGNITIVE BEHAVIORAL (08/22/16) INDIV DIRECTOR CAMP FOR SUBSTANCE ABUSE TREATMENT, PSYCHOEDUCATION (08/22/16) INDIV DIRECTOR CAMP FOR SUBSTANCE ABUSE, COGNITIVE BEHAVIORAL (08/22/16) INDIV PSYCHOTHERAPY FOR SUBSTANCE ABUSE TREATMENT, SUPPORT (08/22/16) ULTRASONOGRAPHY OF HEART WITH AORTA, TRANSESOPHAGEAL (08/22/16) Family History: States: Unknown Family Hx - Social History Hx Tobacco Use: No Hx Alcohol Use: Yes (drinks vodka) Hx Substance Use: No - Immunization History Hx Tetanus Toxoid Vaccination: No Hx Influenza Vaccination: No Hx Pneumococcal Vaccination: No Review Of Systems Constitutional: Positive for: Weakness. Negative for: Fever, Chills Cardiovascular: Negative for: Chest Pain, Palpitations Respiratory: Negative for: Cough, Shortness of Breath Gastrointestinal: Positive for: Nausea, Vomiting. Negative for: Abdominal Pain Genitourinary: Negative for: Dysuria, Hematuria Musculoskeletal: Negative for: Back Pain Skin: Negative for: Rash Neurological: Positive for: Weakness. Negative for: Numbness Psych: Positive for: Withdrawal Physical Exam - Physical Exam Appears: Non-toxic, In Acute Distress Skin: Normal Color, Warm, Dry, Other (poor skin turgor) Head: Atraumatic, Normacephalic Eye(s): bilateral: Normal Inspection, Other (anicteric) Oral Mucosa: Moist Neck: Normal ROM, Supple Chest: Symmetrical Cardiovascular: Rhythm Regular (sinus tach) Respiratory: Normal Breath Sounds, No Rales, No Rhonchi, No Wheezing Gastrointestinal/Abdominal: Soft, Tenderness (mild epigastric), No Guarding, No Rebound Extremity: Normal ROM, No Tenderness, No Swelling Neurological/Psych: Oriented x3, Normal Speech, Normal Cognition, Other (bilateral tremors, tomgue fascic, calm, cooperative, no acute intox, no SI/HI) Gait: Steady ED Course And Treatment - Laboratory Results Result Diagrams: 04/29/18 22:39 04/29/18 22:39 O2 Sat by Pulse Oximetry: 100 (ON RA) Pulse Ox Interpretation: Normal Progress - Re-Evaluation Re-evaluation Note: 04/30/18 01:14 IMPROVED ALERTNESS, RESIDUAL NAUSEA BUT IMPROVED FROM INITIAL. HR 100. TREMORS RESOLVED. - Data Reviewed Data Reviewed: Lab, Old records - Critical Care Citical Care: Excluding Proc Time Critical Care Time: 90 minutes Medical Decision Making Medical Decision Making: Plan: * Labs * Ativan 1 mg IVP * Librium 100 mg PO * Lidocaine 15 ml PO * Pepcid 20 mg IVP * KCL 10 meq * Reglan 10 mg IVP * IV fluids * Zofran 4 mg IVP Disposition Counseled Patient/Family Regarding: Studies Performed, Diagnosis, Need For Fol lowup, Rx Given - Disposition Referrals: YOUR,PMD [Other] Disposition: HOME/ ROUTINE Disposition Time: 03:29 Condition: IMPROVED Prescriptions: Famotidine [Pepcid AC] 10 mg PO QN #30 tablet Metoclopramide [Reglan] 1 tab PO TID PRN #25 tab PRN Reason: Nausea/Vomiting Instructions: Alcohol Withdrawal (DC) Forms: [facility] (Azeri) - Clinical Impression Clinical Impression: Alcohol withdrawal, Nausea, Vomiting - Scribe Statement The provider has reviewed the documentation as recorded by the Scribe Broderick Sheffield All medical record entries made by the Scribe were at my direction and personally dictated by me. I have reviewed the chart and agree that the record accurately reflects my personal performance of the history, physical exam, medical decision making, and the department course for this patient. I have also personally directed, reviewed, and agree with the discharge instructions and disposition.
[2018-04-29 22:51] LABS: MEAN CELL VOLUME 71.6 fL (81.0-99.0)
[2018-04-29 22:57] LABS: ALB/GLOB RATIO 1.4 (1.0-2.1); ALBUMIN 4.8 g/dL (3.5-5.0); ALT/SGPT 98 U/L (9-52); AST/SGOT 251 U/L (14-36); BLOOD UREA NITROGEN 13 mg/dL (7-17); CALCIUM 9.4 mg/dl (8.6-10.4); GFR NON-AFRICAN AMERICAN > 60
[2018-04-29] MEDS ORDERED: Sodium Chloride 0.9% 2,000 ML ONE (22:57)
[2018-04-29] MEDS ORDERED: Potassium Chloride 20 mEq/15 ml LIQ UD PO STA (23:03)
[2018-04-29 23:07] LABS: LYMPHOCYTE 12 % (20-40); MONOCYTE 3 % (0-10); NEUTROPHIL 85 % (50-75); TOTAL CELLS COUNTED 100
[2018-04-29 23:08] LABS: ANISOCYTOSIS SLIGHT; PLATELET ESTIMATE NORMAL (NORMAL); POLYCHROMIC SLIGHT
[2018-04-29 23:09] LABS: HYPOCHROMIC MODERATE; MICROCYTOSIS SLIGHT
[2018-04-29] MEDS ORDERED: Potassium Chloride 20 mEq/15 ml LIQ UD ONE (23:33)
[2018-04-30 01:13] VITALS: RESP 16
[2018-04-30] MEDS ORDERED: Aluminum Hydroxide/Magnesium Hydroxide Susp (30 mL) PO STA (01:13)
[2018-04-30] MEDS ORDERED: Alum-Mag Hydrox-Simethicone Susp (30 mL) ONE (01:36)
[2018-04-30 03:10] VITALS: BP 117/63; PULSE 105; TEMP 99.4
[2018-04-30 03:32] VITALS: O2SAT 100
== END 2018-04-30 03:47 | disposition home or self-care (01) ==
LOC: C.ER 21:50
DX: R11.2 Nausea with vomiting, unspecified (principal); F10.239 Alcohol dependence with withdrawal, unspecified; E78.00 Pure hypercholesterolemia, unspecified; M79.7 Fibromyalgia
CPT/HCPCS: 80053; 83690; 85025; 96361; 96374; 96375; 99284; J2060; J2405; J2765; J3480; J7030

== ENCOUNTER 2018-08-22 19:19 | Emergency (ER) | payer MEDICARE ==
[2018-08-22 19:19] VITALS: BMI 23.9
--- NOTE | 2018-08-22 19:37 | C.PDOC ---
Time Seen by Provider: 08/22/18 19:33 Chief Complaint (Nursing): Dizziness/Lightheaded Past Medical History Vital Signs: Last Vital Signs Temp 98.6 F 08/22/18 19:21 Pulse 110 H 08/22/18 19:21 Resp 16 08/22/18 19:21 BP 148/92 H 08/22/18 19:21 Pulse Ox 98 08/22/18 19:21 - Medical History PMH: Anxiety, CVA, Depression, Fibromyalgia, Hypercholesterolemia, Seizures Denies: Diabetes, Hepatitis, HIV, HTN, Chronic Kidney Disease, Sexually Transmitted Disease Surgical History: - [facility] DETOXIFICATION SERVICES FOR SUBSTANCE ABUSE TREATMENT (08/22/16) GROUP PRESS TENDER FOR SUBSTANCE ABUSE TREATMENT, PSYCHOEDUCATION (08/22/16) GROUP PRESS TENDER FOR SUBSTANCE ABUSE, COGNITIVE BEHAVIORAL (08/22/16) INDIV PRESS TENDER FOR SUBSTANCE ABUSE TREATMENT, PSYCHOEDUCATION (08/22/16) INDIV PRESS TENDER FOR SUBSTANCE ABUSE, COGNITIVE BEHAVIORAL (08/22/16) INDIV PSYCHOTHERAPY FOR SUBSTANCE ABUSE TREATMENT, SUPPORT (08/22/16) ULTRASONOGRAPHY OF HEART WITH AORTA, TRANSESOPHAGEAL (08/22/16) Family History: States: Unknown Family Hx - Social History Hx Tobacco Use: No Hx Alcohol Use: Yes Hx Substance Use: No - Immunization History Hx Tetanus Toxoid Vaccination: No Hx Influenza Vaccination: No Hx Pneumococcal Vaccination: No ED Course And Treatment O2 Sat by Pulse Oximetry: 98 Disposition Counseled Patient/Family Regarding: Studies Performed, Diagnosis - Disposition Disposition Time: 19:37
[2018-08-22] MEDS ORDERED: Sodium Chloride 0.9% 1,000 ML IV ONE ×2 (19:41→22:50)
[2018-08-22] MEDS ORDERED: Sodium Chloride 0.9% 1,000 ML ONE (19:41)
--- NOTE | 2018-08-22 19:41 | C.PDOC ---
History Of Present Illness Patient went to a [place] yesterday and ate some ethnic foods, when she got home she developed nausea, vomiting, and dizziness. She has not been able to tolerate PO. Denies fever or chills. Time Seen by Provider: 08/22/18 19:33 Chief Complaint (Nursing): Dizziness/Lightheaded History Per: Patient History/Exam Limitations: no limitations Onset/Duration Of Symptoms: Other (Yesterday) Current Symptoms Are (Timing): Still Present Severity: Moderate Pain Scale Rating Of: 4 Recent travel outside of the [place]: No Past Medical History Reviewed: Historical Data, Nursing Documentation, Vital Signs Vital Signs: Last Vital Signs Temp 98.6 F 08/22/18 19:21 Pulse 110 H 08/22/18 19:21 Resp 16 08/22/18 19:21 BP 148/92 H 08/22/18 19:21 Pulse Ox 98 08/22/18 19:21 - Medical History PMH: Anxiety, CVA, Depression, Fibromyalgia, Hypercholesterolemia, Seizures Denies: Diabetes, Hepatitis, HIV, HTN, Chronic Kidney Disease, Sexually Transmitted Disease Surgical History: - [facility] DETOXIFICATION SERVICES FOR SUBSTANCE ABUSE TREATMENT (08/22/16) GROUP IMAGING SYSTEM ADMINISTRATOR FOR SUBSTANCE ABUSE TREATMENT, PSYCHOEDUCATION (08/22/16) GROUP IMAGING SYSTEM ADMINISTRATOR FOR SUBSTANCE ABUSE, COGNITIVE BEHAVIORAL (08/22/16) INDIV IMAGING SYSTEM ADMINISTRATOR FOR SUBSTANCE ABUSE TREATMENT, PSYCHOEDUCATION (08/22/16) INDIV IMAGING SYSTEM ADMINISTRATOR FOR SUBSTANCE ABUSE, COGNITIVE BEHAVIORAL (08/22/16) INDIV PSYCHOTHERAPY FOR SUBSTANCE ABUSE TREATMENT, SUPPORT (08/22/16) ULTRASONOGRAPHY OF HEART WITH AORTA, TRANSESOPHAGEAL (08/22/16) Family History: States: No Known Family Hx - Social History Hx Tobacco Use: No Hx Alcohol Use: Yes Hx Substance Use: No - Immunization History Hx Tetanus Toxoid Vaccination: No Hx Influenza Vaccination: No Hx Pneumococcal Vaccination: No Review Of Systems Constitutional: Negative for: Fever, Chills Cardiovascular: Negative for: Chest Pain, Palpitations Respiratory: Negative for: Cough, Shortness of Breath Gastrointestinal: Positive for: Nausea, Vomiting Neurological: Positive for: Dizziness. Negative for: Weakness, Numbness Physical Exam - Physical Exam Appears: Non-toxic Skin: Warm, Dry Head: Normacephalic Oral Mucosa: Moist Chest: Symmetrical, No Tenderness Cardiovascular: Rhythm Regular Respiratory: No Rales, No Rhonchi, No Wheezing Gastrointestinal/Abdominal: Soft, Tenderness (Mild diffuse), No Guarding, No Rebound Neurological/Psych: Oriented x3 ED Course And Treatment - Laboratory Results Result Diagrams: 08/22/18 19:46 08/22/18 19:46 O2 Sat by Pulse Oximetry: 98 (Room air) Pulse Ox Interpretation: Normal Progress Note: Blood work and urinalysis ordered. IV fluids, protonix, and zofran administered. Reevaluation Time: 00:52 Reassessment Condition: Improved Medical Decision Making Medical Decision Making: Upon provider reevaluation patient is feeling better, is medically stable, and requires no further treatment in the ED at this time. Patient will be discharged home with Rx for zofran, protonix . Counseling was provided and all questions were answered regarding diagnosis and need for follow up with dr yun. There is agreement to discharge plan. Return if symptoms persist or worsen. Disposition Counseled Patient/Family Regarding: Studies Performed, Diagnosis, Need For Followup, Rx Given - Disposition Referrals: Jesse Yun MD [Staff Provider] - Disposition: HOME/ ROUTINE Disposition Time: 19:40 Condition: FAIR Additional Instructions: Please return if symptoms recur Prescriptions: Ondansetron ODT [Zofran ODT] 1 odt PO BID PRN #6 odt PRN Reason: Nausea/Vomiting Pantoprazole Sodium [Protonix] 40 mg PO DAILY #14 ect Instructions: Gastritis (DC) Forms: [email or web address] (Sierra Leonean) - Clinical Impression Clinical Impression: Gastritis - Scribe Statement The provider has reviewed the documentation as recorded by the Scribanni Mcpherson All medical record entries made by the Cruzibanni were at my direction and personally dictated by me. I have reviewed the chart and agree that the record accurately reflects my personal performance of the history, physical exam, medi vane decision making, and the department course for this patient. I have also personally directed, reviewed, and agree with the discharge instructions and disposition.
[2018-08-22 19:48] LABS: BASO # 0.1 K/uL (0.0-0.2); BASO % 1.4 % (0.0-2.0); EOS % 0.2 % (0.0-4.0); LYMPH # 1.7 K/uL (1.0-4.3); LYMPH % 25.2 % (20.0-40.0); MEAN CORPUSCULAR HEMOGLOBIN 22.5 pg (27.0-31.0); MEAN CORPUSCULAR HGB CONC 30.5 g/dL (33.0-37.0); MEAN PLATELET VOLUME 6.7 fL (7.2-11.7); MONO # 0.7 K/uL (0.0-0.8); MONO % 9.8 % (0.0-10.0); NEUT # 4.2 K/uL (1.8-7.0); NEUT % 63.4 % (50.0-75.0); RBC 4.59 Mil/uL (3.80-5.20); RED CELL DISTRIBUTION WIDTH 20.4 % (11.5-14.5); WHITE BLOOD COUNT 6.6 K/uL (4.8-10.8)
[2018-08-22 19:51] LABS: HEMOGLOBIN 10.4 g/dL (11.0-16.0)
[2018-08-22 20:00] LABS: ALB/GLOB RATIO 1.2 (1.0-2.1); ALBUMIN 5.3 g/dL (3.5-5.0); ALT/SGPT 26 U/L (9-52); AST/SGOT 58 U/L (14-36); BLOOD UREA NITROGEN 10 mg/dL (7-17); CALCIUM 10.2 mg/dl (8.6-10.4); GFR NON-AFRICAN AMERICAN > 60; LIPASE 209 U/L (23-300)
[2018-08-22 23:13] LABS: HCG,QUALITATIVE URINE NEGATIVE (NEGATIVE)
[2018-08-22 23:26] LABS: SQUAMOUS EPITHIAL 2 /hpf (0-5); URINE BACTERIA RARE (<OCC); URINE BILIRUBIN NEGATIVE (NEGATIVE); URINE BLOOD NEGATIVE (NEGATIVE); URINE CLARITY Hazy (Clear); URINE COLOR Yellow (YELLOW); URINE GLUCOSE (UA) NORMAL (Normal); URINE LEUKOCYTE ESTERASE NEG Leu/uL (Negative); URINE PROTEIN NEGATIVE (NEGATIVE); URINE UROBILINOGEN NORMAL mg/dL (0.2-1.0)
[2018-08-23 01:22] VITALS: BP 134/77; PULSE 78; RESP 18; TEMP 98.5; O2SAT 97
== END 2018-08-23 01:24 | disposition home or self-care (01) ==
LOC: C.ER 19:19
DX: K29.70 Gastritis, unspecified, without bleeding (principal)
CPT/HCPCS: 80053; 81001; 83690; 84703; 85025; 96361; 96374; 96375; 96376; 99285; C9113; G0480; J2405; J2765; J7030

== ENCOUNTER 2018-09-09 22:48 | Emergency (ER) | payer MEDICARE ==
[2018-09-09 22:49] VITALS: BMI 23.9
[2018-09-09 23:22] VITALS: RESP 18; O2SAT 99
[2018-09-09] MEDS ORDERED: Sodium Chloride 0.9% 1,000 ML IV ONE (23:53)
[2018-09-10 00:12] LABS: BASO # 0.1 K/uL (0.0-0.2); BASO % 1.2 % (0.0-2.0); EOS % 0.2 % (0.0-4.0); LYMPH # 1.7 K/uL (1.0-4.3); LYMPH % 19.8 % (20.0-40.0); MEAN CELL VOLUME 72.5 fL (81.0-99.0); MEAN CORPUSCULAR HEMOGLOBIN 22.7 pg (27.0-31.0); MEAN CORPUSCULAR HGB CONC 31.4 g/dL (33.0-37.0); MEAN PLATELET VOLUME 7.8 fL (7.2-11.7); MONO # 0.7 K/uL (0.0-0.8); MONO % 8.1 % (0.0-10.0); NEUT # 6.3 K/uL (1.8-7.0); NEUT % 70.7 % (50.0-75.0); RBC 4.4 Mil/uL (3.80-5.20); RED CELL DISTRIBUTION WIDTH 20.5 % (11.5-14.5); WHITE BLOOD COUNT 8.9 K/uL (4.8-10.8)
--- NOTE | 2018-09-10 00:19 | C.PDOC ---
History Of Present Illness 52 year old female presents with epigastric discomfort, nausea, and vomiting for the past 11 hours. Patient has extensive Hx of ETOH abuse with multiple visits for intoxication. Last drink was 2 days ago at a celebration, only has three drinks a day. Time Seen by Provider: 09/09/18 23:48 Chief Complaint (Nursing): Abdominal Pain History Per: Patient History/Exam Limitations: no limitations Onset/Duration Of Symptoms: Hrs Current Symptoms Are (Timing): Still Present Location Of Pain/Discomfort: Epigastric Quality Of Discomfort: Unable To Describe Associated Symptoms: Vomiting Exacerbating Factors: None Alleviating Factors: None Past Medical History Reviewed: Historical Data, Nursing Documentation, Vital Signs Vital Signs: Last Vital Signs Temp 99.8 F H 09/09/18 23:16 Pulse 112 H 09/09/18 23:16 Resp 18 09/09/18 23:16 BP 142/91 H 09/09/18 23:16 Pulse Ox 99 09/09/18 23:16 Primary Care Provider: Jesse Yun Medical History PMH: Anxiety, Arthritis, CVA, Depression, Fibromyalgia, Hypercholesterolemia, Seizures Denies: Diabetes, Hepatitis, HIV, HTN, Chronic Kidney Disease, Sexually Transmitted Disease Surgical History: - [facility] Procedures DETOXIFICATION SERVICES FOR SUBSTANCE ABUSE TREATMENT (08/22/16) GROUP NETWORK INTELLIGENCE ANALYST FOR SUBSTANCE ABUSE TREATMENT, PSYCHOEDUCATION (08/22/16) GROUP NETWORK INTELLIGENCE ANALYST FOR SUBSTANCE ABUSE, COGNITIVE BEHAVIORAL (08/22/16) INDIV NETWORK INTELLIGENCE ANALYST FOR SUBSTANCE ABUSE TREATMENT, PSYCHOEDUCATION (08/22/16) INDIV NETWORK INTELLIGENCE ANALYST FOR SUBSTANCE ABUSE, COGNITIVE BEHAVIORAL (08/22/16) INDIV PSYCHOTHERAPY FOR SUBSTANCE ABUSE TREATMENT, SUPPORT (08/22/16) ULTRASONOGRAPHY OF HEART WITH AORTA, TRANSESOPHAGEAL (08/22/16) Family History: States: Unknown Family Hx - Social History Hx Tobacco Use: No Hx Alcohol Use: Yes Hx Substance Use: No - Immunization History Hx Tetanus Toxoid Vaccination: No Hx Influenza Vaccination: No Hx Pneumococcal Vaccination: No Review Of Systems Constitutional: Negative for: Fever, Chills Cardiovascular: Negative for: Chest Pain, Orthopnea Respiratory: Negative for: Cough, Shortness of Breath Gastrointestinal: Positive for: Vomiting, Abdominal Pain Neurological: Negative for: Weakness, Numbness Physical Exam - Physical Exam Appears: Non-toxic, Other (Actively vomiting) Skin: Normal Color, Warm Head: Atraumatic, Normacephalic Oral Mucosa: Moist Neck: Normal, Supple Chest: Symmetrical, No Tenderness Cardiovascular: Rhythm Regular Respiratory: No Rales, No Rhonchi, No Wheezing Gastrointestinal/Abdominal: Soft, No Tenderness Extremity: Normal ROM (x4) Neurological/Psych: Oriented x3, Normal Speech, Other (Tremulous) ED Course And Treatment - Laboratory Results Result Diagrams: 09/10/18 00:04 09/10/18 00:04 Lab Interpretation: Abnormal (+ mild microcytic anemia, LFT's c/w continued alcohol abuse) O2 Sat by Pulse Oximetry: 99 Pulse Ox Interpretation: Normal Reevaluation Time: 01:11 Reassessment Condition: Improved Medical Decision Making Medical Decision Making: continued alcohol abuse vs withdrawal extensive h/o same. last drink yesterday improved with ED tx ok for d/c home. Disposition Doctor Will See Patient In The: Office Counseled Patient/Family Regarding: Studies Performed, Diagnosis - Disposition Referrals: Jesse Yun MD [Primary Care Provider] - Disposition: HOME/ ROUTINE Disposition Time: 01:12 Condition: GOOD Forms: [facility] (Northern Irish) - Clinical Impression Clinical Impression: Nausea & vomiting, Alcohol withdrawal - Scribe Statement The provider has reviewed the documentation as recorded by the Scribe Abdoulaye Mcpherson All medical record entries made by the Scribe were at my direction and personally dictated by me. I have reviewed the chart and agree that the record accurately reflects my personal performance of the history, physical exam, medical decision making, and the department course for this patient. I have also personally directed, reviewed, and agree with the discharge instructions and disposition.
[2018-09-10 00:29] VITALS: BP 138/79; PULSE 88; TEMP 98
[2018-09-10 00:29] LABS: ACETAMINOPHEN < 10.0 ug/mL (10.0-30.0); SALICYLATE < 1.0 {null, mg/dL 1}
[2018-09-10 00:30] LABS: ALB/GLOB RATIO 1.2 (1.0-2.1); ALBUMIN 5.2 g/dL (3.5-5.0); ALT/SGPT 26 U/L (9-52); AST/SGOT 55 U/L (14-36); BLOOD UREA NITROGEN 8 mg/dL (7-17); CALCIUM 10.2 mg/dl (8.6-10.4); GFR NON-AFRICAN AMERICAN > 60
== END 2018-09-10 01:21 | disposition home or self-care (01) ==
LOC: SUPCPDRO 22:48 → C.ER 22:48
DX: F10.239 Alcohol dependence with withdrawal, unspecified (principal); R11.2 Nausea with vomiting, unspecified; Y90.9 Presence of alcohol in blood, level not specified
CPT/HCPCS: 80053; 83735; 84100; 85025; 96361; 96374; 96375; 99284; G0480; J2060; J2405; J7030